=== PATIENT | male | born 1960 | race Caucasian/White ===

== ENCOUNTER 2016-08-03 12:17 | Inpatient (IN) | payer OTHER ==
[~2016-08-03] VITALS: Ht 177.8 cm; Wt 113.9 kg
[~2016-08-03 12:17] MED LIST: ASPI-664 PO; CLOP75TA27 PO; GLIM4TAB PO; LEVO500S PO; LISI10TA2 PO; METF1000 PO; SMV40T PO
[2016-08-03] MEDS ORDERED: SODIUM CHLORIDE 0.9% 1L BAG IV* STA (13:40)
[2016-08-03 14:19] LABS: ADD UMIC NO; URINE BILIRUBIN (Dip) NEGATIVE (NEGATIVE); URINE BLOOD (Dip) NEGATIVE (NEGATIVE); URINE COLOR LT. YELLOW (YELLOW); URINE GLUCOSE (Dip) >=1000 % (NEGATIVE); URINE KETONES (Dip) NEGATIVE (NEGATIVE); URINE LEUKOCYTE ESTERASE (Dip) NEGATIVE (NEGATIVE); URINE NITRITE (Dip) NEGATIVE (NEGATIVE); URINE TOTAL PROTEIN (Dip) NEGATIVE (NEGATIVE); URINE UROBILINOGEN (Dip) 0.2 E.U./dL (0.1-1.0)
--- NOTE | 2016-08-03 14:24 | RADRPT ---
PROCEDURE: Chest x-ray CLINICAL INDICATION: Sepsis TECHNIQUE: Chest single view COMPARISON: 07/27/2015 FINDINGS: The heart is normal in size. The pulmonary vessels are normal in caliber. The lungs are clear. Th e costophrenic angles are sharp. The visualized bony thorax is unremarkable. IMPRESSION: No acute cardiopulmonary disease. RPTAT: HH .Guy Cotto MD, Date Time Electronically viewed and signed by .Guy Cotto MD, on 08/03/2016 14:24 .W/
[2016-08-03 14:29] LABS: BASOPHILS % 0.2 % (0.0-2.0); EOSINOPHILS # 0.2 10^3/ul (0.0-0.5); EOSINOPHILS % 1.5 % (0.0-7.0); HEMATOCRIT 43.8 % (42.0-52.0); LYMPHOCYTES # 1.8 10^3/ul (0.8-2.9); LYMPHOCYTES % 15.3 % (15.0-51.0); MEAN CORPUSCULAR HGB CONC 34.2 g/dl (32.0-37.0); MEAN CORPUSCULAR VOLUME 90.6 fl (82.0-101.0); MEAN PLATELET VOLUME 9.4 fl (7.4-10.4); MONOCYTE # 0.8 10^3/ul (0.3-0.9); MONOCYTES % 6.7 % (0.0-11.0); NEUTROPHIL # 8.8 10^3/ul (1.6-7.5); NEUTROPHILS % 76.3 % (39.0-77.0); PLATELET COUNT 265 10^3/UL (140-440); RED BLOOD COUNT 4.84 10^6/ul (4.70-6.10); RED CELL DISTRIBUTION WIDTH 13.2 % (11.5-14.5); UNCORRECTED WBC 11.6 10^3/ul (4.8-10.8); WHITE BLOOD COUNT 11.6 10^3/ul (4.8-10.8)
[2016-08-03 14:38] LABS: INR 1.1; PROTIME 14.2 Sec (12.2-14.2); PT RATIO 1.1
[2016-08-03 14:39] LABS: PARTIAL THROMBOPLASTIN TIME 30.7 Sec (25.0-35.0)
[2016-08-03 14:43] LABS: ALBUMIN 4.6 g/dl (3.3-4.9); CHLORIDE 98 mmol/L (97-110); CONDITION 1
[2016-08-03 14:44] LABS: SODIUM 140 mmol/L (135-144)
[2016-08-03 14:46] LABS: ALBUMIN/GLOBULIN RATIO 1.24; ANION GAP 21 (8-16); ASPARTATE AMINO TRANSFERASE 27 IU/L (15-46); BILIRUBIN,INDIRECT 0.1 mg/dl (0-1.1); BILIRUBIN,TOTAL 0.1 mg/dl (0.2-1.3); BLOOD UREA NITROGEN 33 mg/dl (7-20); CARBON DIOXIDE 26 mmol/L (21-31); CREATININE 2.02 mg/dl (0.61-1.24); TOTAL PROTEIN 8.3 g/dl (6.1-8.1)
[2016-08-03 14:47] LABS: ALANINE AMINOTRANSFERASE 32 IU/L (13-69); ALKALINE PHOSPHATASE 88 IU/L (42-121); CALCIUM 10.1 mg/dl (8.4-10.2)
[2016-08-03] MEDS ORDERED: SOD CHLORIDE 0.9% 1,000 ML IV SCH (15:07)
--- NOTE | 2016-08-03 15:11 | ERA ---
ER Documentation Chief Complaint Date/Time DATE: 08/03/16 TIME: 15:08 Chief Complaint RIGHT WOUND INFECTION FOR A WEEK. SENT BY DR SANCHEZ FOR ADMISSION HPI This is a 55-year-old male who presents to the emergency room after being referred by Dr. Sanchez for admission for right foot cellulitis. This patient states that he has had an infection of his right foot for the past week which occurred after he cut himself on accident with scissors while trying to trim his toenails. The patient does state he is diabetic. The patient came to the ER for evaluation because his foot has started to become worse and has had peeling of the skin around the toes. He denies being on any antibiotics at this time. ROS All systems reviewed and are negative except as per history of present illness. Medications Home Meds Active Scripts Levofloxacin (Levofloxacin) 500 Mg/20 Ml Solution, 500 MG PO DAILY for celllulitis , #10 ML Prov:GRACE BELTRAN MD 07/28/15 Clopidogrel Bisulfate (Clopidogrel) 75 Mg Tablet, 75 MG PO DAILY, #30 TAB Prov:ROB TAYLOR NP 09/07/14 Aspirin* (Aspirin* EC) 81 Mg Tablet.dr 81 MG PO DAILY, #30 TAB Prov:ROB TAYLOR NP 09/07/14 Metformin Hcl* (Metformin Hcl*) 1,000 Mg Tablet, 1000 MG PO BID, #60 TAB RESUME THIS MEDICATION 48 HOURS FROM 09/06/14 AFTER LEFT HEART CATH RESTART THIS MEDICATION AFTER 09/08/14 Prov:ROB TAYLOR NP 09/07/14 Reported Medications Lisinopril* (Lisinopril*) 10 Mg Tablet, 10 MG PO DAILY, TAB 07/12/14 Glimepiride* (Glimepiride*) 4 Mg Tablet, 4 MG PO BID, TAB 07/12/14 Simvastatin (Simvastatin) 40 Mg Tablet, 40 MG PO HS, TAB 07/12/14 Allergies Allergies: Coded Allergies: No Known Allergy (Unverified , 09/06/14) PMhx/Soc History of Surgery: Yes (coronary artery stents x2) Anesthesia Reaction: No Hx Neurological Disorder: No Hx Respiratory Disorders: No Hx Cardiac Disorders: Yes (htn, chest pain) Hx Psychiatric Problems: No Hx Miscellaneous Medical Probl: No Hx Alcohol Use: No Hx Substance Use: No Hx Tobacco Use: No Smoking Status: Unknown if ever smoked Physical Exam Vitals Vital Signs Date Time Temp Pulse Resp B/P Pulse Ox O2 Delivery O2 Flow Rate FiO2 08/03/16 12:22 98.6 116 20 150/65 98 Physical Exam INITIAL VITAL SIGNS: Reviewed by me GENERAL: The patient is well developed and appropriate for usual state of health in no apparent distress HEENT: Pupils equal, round, and reactive to light. EOMI. There is no scleral icterus. NECK: C-spine is soft and supple, there is no meningismus. There is no cervical lymphadenopathy. LUNGS: Clear to auscultation bilaterally. There are no rales, wheezes or rhonchi. HEART: Regular rate and rhythm, no murmurs, clicks, rubs or gallops. ABDOMEN: Soft, non-tender, non-distended. There are bowel sounds in all four quadrants. No rebound or guarding. EXTREMITIES: Right foot with cellulitis over the toes worse over the first and second toe with sloughing of the skin, no necrotic tissue, there is no peripheral cyanosis or edema. No focal swelling or erythema. NEUROLOGICAL: The patient moves all four extremities with 5/5 strength. Cranial nerves II - XII are intact. Normal gait. Alert and oriented SKIN: There is no apparent rash or petechiae. HEME/LYMPHATIC: There is no evidence of excessive bruising or lymphedema. PSYCHIATRIC: The patient does not appear anxious or depressed. Result Diagram: 08/03/16 1400 Results 24 hrs Laboratory Tests Test 08/03/16 14:00 Activated Partial Thromboplast Time 30.7Sec Basophils # 0.010^3/ul Basophils % 0.2% Eosinophils # 0.210^3/ul Eosinophils % 1.5% Hematocrit 43.8% Hemoglobin 15.0g/dl INR International Normalized Ratio 1.10 Lactic Acid Level 1.8mmol/L Lymphocytes # 1.810^3/ul Lymphocytes % 15.3% Mean Corpuscular Hemoglobin 31.0pg Mean Corpuscular Hemoglobin Concent 34.2g/dl Mean Corpuscular Volume 90.6fl Mean Platelet Volume 9.4fl Monocytes # 0.810^3/ul Monocytes % 6.7% Neutrophils # 8.810^3/ul Neutrophils % 76.3% Nucleated Red Blood Cells # 0.010^3/ul Nucleated Red Blood Cells % 0.0/100WBC Platelet Count 39367^3/UL Prothrombin Time 14.2Sec Prothrombin Time Ratio 1.1 Red Blood Count 4.8410^6/ul Red Cell Distribution Width 13.2% Urine Bilirubin NEGATIVE Urine Clarity CLEAR Urine Color LT. YELLOW Urine Glucose >=1000% Urine Hemoglobin NEGATIVE Urine Ketones NEGATIVE Urine Leukocyte Esterase NEGATIVE Urine Nitrite NEGATIVE Urine Specific [place] 1.010 Urine Total Protein NEGATIVE Urine Urobilinogen 0.2 E.U./dL Urine pH 5.5 White Blood Count 11.610^3/ul Current Medications Medications (Trade) Dose Ordered Sig/Belén Route PRN Reason Start Time Stop Time Status Last Admin Dose Admin Sodium Chloride 2960 ml 2,960 ml BOLUS OVER 2 HOURS STAT IV* 08/03/16 13:40 08/03/16 13:50 DC 08/03/16 14:23 Vancomycin HCl 1.25 gm/Sodium Chloride 250 ml @ 83.333 mls/ hr ONCE ONCE IVPB 08/03/16 15:30 08/03/16 18:29 Ceftriaxone Sodium (Rocephin) 50 ml @ 100 mls/hr ONCE ONCE IVPB 08/03/16 15:30 08/03/16 15:59 Procedures/MDM EKG: Rate/Rhythm: [Normal Sinus Rhythm] QRS, ST, T-waves: [No changes consistent w/ acute ischemia] Impression: [No evidence of ischemia or arrhythmia] Chest X-ray 1V Interpreted by me: Soft Tissue: No acute abnormalities Bones: No acute abnormalities Mediastinum/Cardiac Silhouette/Lungs: [No acute abnormalities] X-ray Foot 3V Interpreted by me: Bones: [No fracture] Joints: [No dislocation] Foreign body: [None] This 55-year-old male presents to the emergency room for evaluation of right foot cellulitis. This patient did have sloughing of his skin on his right foot over the first and second toe. This patient had lab work drawn including blood cultures. Patient has a slight leukocytosis however given his severity of cellulitis over the foot this patient will be placed in for admission at this time. The patient was started on vancomycin and Rocephin. The patient was also given a tetanus shot here in the emergency room. I have talked to her admitting physician, Dr. le who is okay with that admission to [facility] at this time. Departure Diagnosis: Primary Impression: Cellulitis of right foot Additional Impression: Diabetes mellitus Condition: Stable SOL WADE DO Aug 03, 2016 15:10
[2016-08-03 15:14] LABS: TROPONIN-I < 0.012 ng/ml (0.00-0.12)
[2016-08-03 15:16] LABS: GLUCOSE 456 mg/dl (70-220); POTASSIUM 5.2 mmol/L (3.5-5.1)
[2016-08-03] MEDS ORDERED: DIPHTH/TET/ACEL PERTUSS (ADULT) 0.5 ML VIAL IM* ONE (15:30)
[2016-08-03] MEDS ORDERED: GLUCAGON 1 MG INJ IM PRN (15:30)
[2016-08-03] MEDS ORDERED: GLUCOSE GEL 15 GRAM TUBE PO PRN ×2 (15:30)
[2016-08-03] MEDS ORDERED: CEFTRIAXONE 1 GM/50 ML (PMX) 50 ML IVPB ONE (15:30)
[2016-08-03] MEDS ORDERED: VANCOMYCIN 1.25 GM in SOD CHLORIDE 0.9% 250 ML IVPB ONE (15:30)
[2016-08-03] MEDS ORDERED: MAGNESIUM HYDROXIDE 30ML CUP PO PRN (15:30)
[2016-08-03] MEDS ORDERED: INSULIN REGULAR, HUMAN 100 UNIT/1 ML 3ML VIAL SC ONE (15:30)
[2016-08-03] MEDS ORDERED: DEXTROSE 50% 50 ML SYRINGE IV PRN ×2 (15:30)
[2016-08-03] MEDS ORDERED: GLUCOSE GEL 15 GRAM TUBE BUCCAL PRN (15:30)
[2016-08-03] MEDS ORDERED: ONDANSETRON 4 MG INJ IV PRN (15:30)
[2016-08-03] MEDS ORDERED: ACETAMINOPHEN 325 MG TAB PO PRN ×2 (15:30)
[2016-08-03] MEDS ORDERED: NACL 0.9% 3 ML SYG IV SCH (15:30)
[2016-08-03] MEDS ORDERED: HYDROCODONE/APAP (5/325) TAB PO PRN (15:30)
[2016-08-03] MEDS ORDERED: INSU300I SQ (15:42)
--- NOTE | 2016-08-03 15:42 | RADRPT ---
PROCEDURE: Right XR Foot. CLINICAL INDICATION: Cellulitis. TECHNIQUE: AP lateral and oblique views of the right foot was obtained. The images were reviewed on a PACS workstation. COMPARISON: No.. FINDINGS: There is a plantar spur off of the os calcaneus. There is an arthrosis with joint space narrowing a nd popping the right first metatarsophalangeal and right first DIP joints. There is a hallux valgus deformity of the right great toe. There is no radiographic evidence of an acute fracture or osteom yelitis. There is no evidence of gas gangrene. IMPRESSION: 1. There is no radiographic evidence of osteomyelitis or gas gangrene. 2. Plantar spur of the os calcaneus. 3. Hallux valgus deformity of the right great toe. Para for arthrosis of the right first metatarsal phalangeal and right first DIP joint spaces. RPTAT:AAJJ Physician Lore Date Time Electronically viewed and signed by Physician Lore on 08/03/2016 15:42 DUNIA/
[2016-08-03] MEDS ORDERED: HYD25 PO (15:43)
[2016-08-03] MEDS ORDERED: SITA1TAB5 PO (15:43)
[2016-08-03] MEDS ORDERED: FENO145T19 PO (15:43)
[2016-08-03] MEDS ORDERED: DAPA5TAB PO (15:44)
[2016-08-03] MEDS ORDERED: DAPA10TA PO (15:45)
--- NOTE | 2016-08-03 19:31 | QN ---
Documentation Comment [id number] MARIO MONTES MD Aug 03, 2016 19:31
[2016-08-03] MEDS ORDERED: GLIMEPIRIDE 4 MG TAB PO SCH (21:00)
[2016-08-03] MEDS ORDERED: metFORMIN 500 MG TAB PO SCH (21:00)
[2016-08-03] MEDS: INSULIN ASPART [NOVOLOG] 3 ML PEN SC SCH (21:00)
--- NOTE | 2016-08-03 21:40 | HP ---
DATE OF ADMISSION: 08/03/2016 HISTORY OF PRESENT ILLNESS: Mr. Duron is a middle-aged man who has a history of right lower extremity cellulitis, history of diabetes mellitus, hypertension, dyslipidemia, history of CAD, angiogram and stent placement in the past, presented to this hospital with complaints of right lower extremity foot wound. The patient had been cleaning his toenails and developed that, was seen by Dr. Schwarz, and is admitted for further management. PAST MEDICAL HISTORY: Positive for diabetes, hypertension, dyslipidemia, CAD, CKD, history of stent placement, per patient. ALLERGY HISTORY: NEGATIVE. FAMILY HISTORY: He denies. SOCIAL HISTORY: He denies. MEDICATION HISTORY: Patient was on: 1. Aspirin. 2. Plavix. 3. toujeo 4. Fenofibrate. 5. Amaryl. 6. Hydrochlorothiazide. 7. Insulin. 8. Lisinopril. 9. Simvastatin. 10. Sitagliptin. 11. Metformin. REVIEW OF SYSTEMS HEENT: Unremarkable. RESPIRATORY: Unremarkable. CARDIOVASCULAR: Unremarkable. ABDOMEN: Unremarkable. EXTREMITIES: As mentioned above, right lower extremity pain. CENTRAL NERVOUS SYSTEM: Unremarkable. PHYSICAL EXAMINATION: GENERAL: The patient is awake, alert, not in any acute respiratory distress, well built. VITAL SIGNS: Pulse 75 blood pressure 150/65. HEAD: Atraumatic, normocephalic. Pupils equal, reactive to light. NECK: Supple. No JVD. LUNGS: Clear. CARDIOVASCULAR: S1, S2 normal. ABDOMEN: Soft, nontender. Bowel sounds present. No palpable mass. EXTREMITIES: No cyanosis, clubbing. Edema trace. The patient has right lower extremity foot wound noted, and also peeling of the skin noted in the right lower extremity toe area. LABORATORY DATA: WBC 9.6, hematocrit 43.8, potassium 5.2, BUN 33, creatinine 2.02, glucose 456, and patient is going to be monitored for further management. Chest x-ray: No acute cardiopulmonary disease. IMPRESSION: 1. Right foot ulcer and wound. 2. Leukocytosis. 3. Hyperkalemia. 4. Patient has metabolic acidosis. 5. Diabetes mellitus. 6. Coronary artery disease. 7. History of coronary angiogram with stent placement. 8. Leukocytosis. 9. History of dyslipidemia. PLAN: To continue home medication, wound care, antibiotics, sliding scale. Orders were done. Dictated By: MARIO ANDERS/KONRAD Conf#: [id number] DID#: [id number]
[2016-08-03] MEDS: SOD CHLORIDE 0.9% 1,000 ML IV SCH (23:11)
[2016-08-04] MEDS: ATORVASTATIN 20 MG TAB PO SCH ×2 (01:12→21:54)
[2016-08-04 06:56] VITALS: TEMP 98.5
[2016-08-04 08:00] VITALS: BP 132/64; RESP 20
[2016-08-04 08:15] VITALS: Ht 177.8 cm; Wt 113.9 kg
[2016-08-04 08:22] VITALS: BP 132/64; PULSE 70; RESP 20
[2016-08-04] MEDS: CLOPIDOGREL 75 MG TAB PO SCH (10:47)
[2016-08-04] MEDS: LISINOPRIL 10 MG TAB PO SCH (10:47)
[2016-08-04] MEDS: FENOFIBRATE 145 MG TAB PO SCH (10:47)
[2016-08-04] MEDS: CEFTRIAXONE 1 GM/50 ML (PMX) 50 ML IVPB SCH (10:47)
[2016-08-04] MEDS: ASPIRIN (EC) 81 MG TAB PO SCH (10:48)
[2016-08-04] MEDS: HYDROCHLOROTHIAZIDE 25 MG TAB PO SCH (10:48)
[2016-08-04] MEDS: ENOXAPARIN 40 MG/0.4 ML SYG SC SCH (10:49)
[2016-08-04] MEDS: INSULIN ASPART [NOVOLOG] 3 ML PEN SC SCH ×4 (10:51→21:51)
[2016-08-04] MEDS: INSULIN GLARGINE [LANtus] 3 ML PEN SC SCH (10:52)
[2016-08-04] MEDS: SOD CHLORIDE 0.9% 1,000 ML IV SCH (11:01)
--- NOTE | 2016-08-04 12:09 | PN ---
Date/Time of Note Date/Time of Note DATE: 08/04/16 TIME: 12:09 Assessment/Plan VTE Prophylaxis VTE Prophylaxis Intervention: other Lines/Catheters IV Catheter Type (from Nrs): Peripheral IV Assessment/Plan Chief Complaint/Hosp Course IMPRESSION: 1. Right foot ulcer and wound. 2. Leukocytosis. 3. Hyperkalemia. 4. Patient has metabolic acidosis. 5. Diabetes mellitus. 6. Coronary artery disease. 7. History of coronary angiogram with stent placement. 8. Leukocytosis. 9. History of dyslipidemia. plan wound care per dr hernandez Problems: Subjective 24 Hr Interval Summary Gastrointestinal: no complaints Genitourinary: no complaints Exam/Review of Systems Vital Signs Vitals Vital Signs Date Time Temp Pulse Resp B/P Pulse Ox O2 Delivery O2 Flow Rate FiO2 08/04/16 08:22 98.6 70 20 132/64 98 Room Air Intake and Output 08/03/16 08/03/16 08/04/16 15:00 23:00 07:00 Output Total 150 ml 450 ml Balance -150 ml -450 ml Exam Neck: supple Respiratory: clear to auscultation Cardiovascular: regular rate and rhythm Gastrointestinal: soft Musculoskeletal: nl extremities to inspection Extremities: normal pulses Results Result Diagram: 08/03/16 1400 08/03/16 1400 Results 24 hrs Laboratory Tests Test 08/03/16 14:00 08/03/16 19:05 08/03/16 19:45 08/03/16 21:30 Activated Partial Thromboplast Time 30.7 Alanine Aminotransferase (ALT/SGPT) 32 Albumin 4.6 Albumin/Globulin Ratio 1.24 Alkaline Phosphatase 88 Anion Gap 21 H Aspartate Amino Transf (AST/SGOT) 27 Basophils # 0.0 Basophils % 0.2 Blood Urea Nitrogen 33 H Calcium Level 10.1 Carbon Dioxide Level 26 Chloride Level 98 Creatinine 2.02 H Direct Bilirubin 0.00 Eosinophils # 0.2 Eosinophils % 1.5 Globulin 3.70 H Glucose Level 456 *H Hematocrit 43.8 Hemoglobin 15.0 INR International Normalized Ratio 1.10 Indirect Bilirubin 0.1 Lactic Acid Level 1.8 2.9 H 1.0 Lymphocytes # 1.8 Lymphocytes % 15.3 Mean Corpuscular Hemoglobin 31.0 Mean Corpuscular Hemoglobin Concent 34.2 Mean Corpuscular Volume 90.6 Mean Platelet Volume 9.4 Monocytes # 0.8 Monocytes % 6.7 Neutrophils # 8.8 H Neutrophils % 76.3 Nucleated Red Blood Cells # 0.0 Nucleated Red Blood Cells % 0.0 Platelet Count 265 # Potassium Level 5.2 H Prothrombin Time 14.2 Prothrombin Time Ratio 1.1 Red Blood Count 4.84 Red Cell Distribution Width 13.2 Sodium Level 140 Total Bilirubin 0.1 L Total Protein 8.3 H Troponin I < 0.012 Urine Bilirubin NEGATIVE Urine Clarity CLEAR Urine Color LT. YELLOW Urine Glucose >=1000 Urine Hemoglobin NEGATIVE Urine Ketones NEGATIVE Urine Leukocyte Esterase NEGATIVE Urine Nitrite NEGATIVE Urine Specific [place] 1.010 Urine Total Protein NEGATIVE Urine Urobilinogen 0.2 E.U./dL Urine pH 5.5 White Blood Count 11.6 #H Bedside Glucose 267 H Test 08/03/16 23:10 08/04/16 08:04 Bedside Glucose 176 151 Medications Medications Current Medications Aspirin (Halfprin) 81 mg DAILY PO Last administered on 08/04/16 10:48; Admin Dose 81 MG; Start 08/04/16 at 09:00 Lisinopril 10 mg 10 mg DAILY PO Last administered on 08/04/16 10:47; Admin Dose 10 MG; Start 08/04/16 at 09:00 Sodium Chloride (NS) 1,000 ml @ 50 mls/hr Q20H IV Last administered on 11:01; Admin Dose 50 MLS/HR; Start 08/03/16 at 15:09 Acetaminophen (Tylenol Tab) 650 mg Q6H PRN PO PAIN LEVEL 1-3 OR FEVER; Start at 15:30 Acetaminophen/ Hydrocodone Bitart ([place] (5/325)) 1 tab Q6H PRN PO MODERATE PAIN LEVEL 4-6; Start 08/03/16 at 15:30 Magnesium Hydroxide (Milk Of Mag) 30 ml Q24H PRN PO CONSTIPATION; Start at 15:30 Zolpidem Tartrate (Ambien) 5 mg QHS PRN PO SLEEP; Start 08/03/16 at 15:30 Enoxaparin Sodium 40 mg 40 mg DAILY SC Last administered on 08/04/16 10:49; Admin Dose 40 MG; Start 08/04/16 at 09:00 Ceftriaxone Sodium (Rocephin) 50 ml @ 100 mls/hr DAILY IVPB Last administered on 08/04/16 10:47; Admin Dose 100 MLS/HR; Start 08/04/16 at 09:00 Miscellaneous Information 1 ea NOTE XX ; Start 08/03/16 at 15:30 Glucose (Glutose) 15 gm Q15M PRN PO DECREASED GLUCOSE; Start 08/03/16 at 15:30 Glucose (Glutose) 22.5 gm Q15M PRN PO DECREASED GLUCOSE; Start 08/03/16 at 15: 30 Dextrose (D50w Syringe) 25 ml Q15M PRN IV DECREASED GLUCOSE; Start 08/03/16 at 15:30 Dextrose (D50w Syringe) 50 ml Q15M PRN IV DECREASED GLUCOSE; Start 08/03/16 at 15:30 Glucagon (Glucagen) 1 mg Q15M PRN IM DECREASED GLUCOSE; Start 08/03/16 at 15:30 Glucose (Glutose) 15 gm Q15M PRN BUCCAL DECREASED GLUCOSE; Start 08/03/16 at 15 :30 Clopidogrel Bisulfate (plaVIX) 75 mg DAILY PO Last administered on 08/04/16 10 :47; Admin Dose 75 MG; Start 08/04/16 at 09:00 Fenofibrate (Tricor) 145 mg DAILY PO Last administered on 08/04/16 10:47; Admin Dose 145 MG; Start 08/04/16 at 09:00 Hydrochlorothiazide (Hydrochlorothiazide) 25 mg DAILY PO Last administered on 10:48; Admin Dose 25 MG; Start 08/04/16 at 09:00 Insulin Glargine (Lantus) 55 unit DAILY SC Last administered on 08/04/16 10:52 ; Admin Dose 55 UNIT; Start 08/04/16 at 09:00 Atorvastatin Calcium (Lipitor) 20 mg DAILY@21 PO Last administered on 01:12; Admin Dose 20 MG; Start 08/04/16 at 00:30 Influenza Virus Vaccine (Fluzone) 0.5 ml ONCE ONCE IM* ; Start 08/06/16 at 09:00 ; Stop 08/06/16 at 09:01 MARIO MONTES MD Aug 04, 2016 12:09
[2016-08-04 21:18] VITALS: BP 106/62; RESP 18
[2016-08-04] MEDS: ZOLPIDEM 5 MG TAB PO PRN (21:47)
[2016-08-05 07:29] VITALS: BP 120/73; RESP 20
[2016-08-05 07:42] LABS: BASOPHILS % 0.4 % (0.0-2.0); EOSINOPHILS # 0.3 10^3/ul (0.0-0.5); EOSINOPHILS % 3.1 % (0.0-7.0); HEMATOCRIT 37.7 % (42.0-52.0); HEMOGLOBIN 13.1 g/dl (14.0-18.0); LYMPHOCYTES # 3.1 10^3/ul (0.8-2.9); LYMPHOCYTES % 37.1 % (15.0-51.0); MEAN CORPUSCULAR HEMOGLOBIN 31.4 pg (29.0-33.0); MEAN CORPUSCULAR HGB CONC 34.8 g/dl (32.0-37.0); MEAN CORPUSCULAR VOLUME 90.3 fl (82.0-101.0); MEAN PLATELET VOLUME 8.2 fl (7.4-10.4); MONOCYTE # 0.8 10^3/ul (0.3-0.9); MONOCYTES % 10.1 % (0.0-11.0); NEUTROPHIL # 4.1 10^3/ul (1.6-7.5); NEUTROPHILS % 49.3 % (39.0-77.0); PLATELET COUNT 256 10^3/UL (140-440); RED BLOOD COUNT 4.18 10^6/ul (4.70-6.10); RED CELL DISTRIBUTION WIDTH 12.8 % (11.5-14.5); UNCORRECTED WBC 8.4 10^3/ul (4.8-10.8); WHITE BLOOD COUNT 8.4 10^3/ul (4.8-10.8)
[2016-08-05 07:46] LABS: POTASSIUM 3.8 mmol/L (3.5-5.1)
[2016-08-05 07:49] LABS: CONDITION 1; CREATININE 1.35 mg/dl (0.61-1.24)
[2016-08-05] MEDS: INSULIN ASPART [NOVOLOG] 3 ML PEN SC SCH ×4 (08:00→21:37)
[2016-08-05] MEDS: CLOPIDOGREL 75 MG TAB PO SCH (08:35)
[2016-08-05] MEDS: ASPIRIN (EC) 81 MG TAB PO SCH (08:35)
[2016-08-05] MEDS: SOD CHLORIDE 0.9% 1,000 ML IV SCH (08:35)
[2016-08-05] MEDS: LISINOPRIL 10 MG TAB PO SCH (08:36)
[2016-08-05] MEDS: FENOFIBRATE 145 MG TAB PO SCH (08:36)
[2016-08-05] MEDS: HYDROCHLOROTHIAZIDE 25 MG TAB PO SCH (08:36)
[2016-08-05] MEDS: ENOXAPARIN 40 MG/0.4 ML SYG SC SCH (08:39)
[2016-08-05] MEDS: INSULIN GLARGINE [LANtus] 3 ML PEN SC SCH (08:39)
[2016-08-05] MEDS: CEFTRIAXONE 1 GM/50 ML (PMX) 50 ML IVPB SCH (09:46)
[2016-08-05] MEDS: SILVER SULFADIAZINE 1% 25 GM CR TOP SCH (13:00)
--- NOTE | 2016-08-05 16:53 | PN ---
Date/Time of Note Date/Time of Note DATE: 08/05/16 TIME: 16:52 Assessment/Plan VTE Prophylaxis VTE Prophylaxis Intervention: other Lines/Catheters IV Catheter Type (from Nrs): Peripheral IV Assessment/Plan Chief Complaint/Hosp Course IMPRESSION: 1. Right foot ulcer and wound. 2. Leukocytosis. 3. Hyperkalemia. 4. Patient has metabolic acidosis. 5. Diabetes mellitus. 6. Coronary artery disease. 7. History of coronary angiogram with stent placement. 8. Leukocytosis. 9. History of dyslipidemia. plan wound care per dr hernandez Problems: Subjective 24 Hr Interval Summary Cardiovascular: no complaints Gastrointestinal: no complaints Musculoskeletal: bone/joint pain (+) Exam/Review of Systems Vital Signs Vitals Vital Signs Date Time Temp Pulse Resp B/P Pulse Ox O2 Delivery O2 Flow Rate FiO2 08/05/16 07:29 98.6 73 20 120/73 95 08/04/16 08:22 Room Air Intake and Output 08/04/16 08/04/16 08/05/16 15:00 23:00 07:00 Intake Total 50 ml 1400 ml 1100 ml Balance 50 ml 1400 ml 1100 ml Exam Respiratory: clear to auscultation Cardiovascular: regular rate and rhythm Gastrointestinal: soft Musculoskeletal: nl extremities to inspection Results Result Diagram: 08/05/16 0710 08/05/16 0710 Results 24 hrs Laboratory Tests Test 08/04/16 17:54 08/04/16 20:34 08/05/16 07:10 08/05/16 08:16 Bedside Glucose 263 H 310 H 140 Anion Gap 18 H Basophils # 0.0 Basophils % 0.4 Blood Urea Nitrogen 19 # Calcium Level 9.0 Carbon Dioxide Level 21 Chloride Level 106 Creatinine 1.35 H Eosinophils # 0.3 Eosinophils % 3.1 Glucose Level 158 # Hematocrit 37.7 L Hemoglobin 13.1 L Lymphocytes # 3.1 H Lymphocytes % 37.1 Mean Corpuscular Hemoglobin 31.4 Mean Corpuscular Hemoglobin Concent 34.8 Mean Corpuscular Volume 90.3 Mean Platelet Volume 8.2 Monocytes # 0.8 Monocytes % 10.1 Neutrophils # 4.1 Neutrophils % 49.3 Nucleated Red Blood Cells # 0.0 Nucleated Red Blood Cells % 0.0 Platelet Count 256 Potassium Level 3.8 Red Blood Count 4.18 L Red Cell Distribution Width 12.8 Sodium Level 141 White Blood Count 8.4 # Test 08/05/16 12:07 Bedside Glucose 219 Medications Medications Current Medications Aspirin (Halfprin) 81 mg DAILY PO Last administered on 08/05/16 08:35; Admin Dose 81 MG; Start 08/04/16 at 09:00 Lisinopril 10 mg 10 mg DAILY PO Last administered on 08/05/16 08:36; Admin Dose 10 MG; Start 08/04/16 at 09:00 Sodium Chloride (NS) 1,000 ml @ 50 mls/hr Q20H IV Last administered on 08:35; Admin Dose 50 MLS/HR; Start 08/03/16 at 15:09 Acetaminophen (Tylenol Tab) 650 mg Q6H PRN PO PAIN LEVEL 1-3 OR FEVER; Start at 15:30 Acetaminophen/ Hydrocodone Bitart ([place] (5/325)) 1 tab Q6H PRN PO MODERATE PAIN LEVEL 4-6; Start 08/03/16 at 15:30 Magnesium Hydroxide (Milk Of Mag) 30 ml Q24H PRN PO CONSTIPATION; Start at 15:30 Zolpidem Tartrate (Ambien) 5 mg QHS PRN PO SLEEP Last administered on 21:47; Admin Dose 5 MG; Start 08/03/16 at 15:30 Enoxaparin Sodium 40 mg 40 mg DAILY SC Last administered on 08/05/16 08:39; Admin Dose 40 MG; Start 08/04/16 at 09:00 Ceftriaxone Sodium (Rocephin) 50 ml @ 100 mls/hr DAILY IVPB Last administered on 08/05/16 09:46; Admin Dose 100 MLS/HR; Start 08/04/16 at 09:00 Miscellaneous Information 1 ea NOTE XX ; Start 08/03/16 at 15:30 Glucose (Glutose) 15 gm Q15M PRN PO DECREASED GLUCOSE; Start 08/03/16 at 15:30 Glucose (Glutose) 22.5 gm Q15M PRN PO DECREASED GLUCOSE; Start 08/03/16 at 15: 30 Dextrose (D50w Syringe) 25 ml Q15M PRN IV DECREASED GLUCOSE; Start 08/03/16 at 15:30 Dextrose (D50w Syringe) 50 ml Q15M PRN IV DECREASED GLUCOSE; Start 08/03/16 at 15:30 Glucagon (Glucagen) 1 mg Q15M PRN IM DECREASED GLUCOSE; Start 08/03/16 at 15:30 Glucose (Glutose) 15 gm Q15M PRN BUCCAL DECREASED GLUCOSE; Start 08/03/16 at 15 :30 Clopidogrel Bisulfate (plaVIX) 75 mg DAILY PO Last administered on 08/05/16 08 :35; Admin Dose 75 MG; Start 08/04/16 at 09:00 Fenofibrate (Tricor) 145 mg DAILY PO Last administered on 08/05/16 08:36; Admin Dose 145 MG; Start 08/04/16 at 09:00 Hydrochlorothiazide (Hydrochlorothiazide) 25 mg DAILY PO Last administered on 08:36; Admin Dose 25 MG; Start 08/04/16 at 09:00 Insulin Glargine (Lantus) 55 unit DAILY SC Last administered on 08/05/16 08:39 ; Admin Dose 55 UNIT; Start 08/04/16 at 09:00 Atorvastatin Calcium (Lipitor) 20 mg DAILY@21 PO Last administered on 21:54; Admin Dose 20 MG; Start 08/04/16 at 00:30 Influenza Virus Vaccine (Fluzone) 0.5 ml ONCE ONCE IM* ; Start 08/06/16 at 09:00 ; Stop 08/06/16 at 09:01 Silver Sulfadiazine (Thermazene 1% 25 Gm) 1 applic DAILY TOP Last administered on 08/05/16 13:00; Admin Dose 1 APPLIC; Start 08/05/16 at 11:30 MARIO MONTES MD Aug 05, 2016 16:53
[2016-08-05 20:16] VITALS: BP 101/62; RESP 18
[2016-08-05] MEDS: ATORVASTATIN 20 MG TAB PO SCH (21:30)
[2016-08-06] MEDS: ZOLPIDEM 5 MG TAB PO PRN (00:29)
[2016-08-06] MEDS: SILVER SULFADIAZINE 1% 25 GM CR TOP SCH (08:08)
[2016-08-06] MEDS: CEFTRIAXONE 1 GM/50 ML (PMX) 50 ML IVPB SCH (08:08)
[2016-08-06] MEDS: CLOPIDOGREL 75 MG TAB PO SCH (08:09)
[2016-08-06] MEDS: ASPIRIN (EC) 81 MG TAB PO SCH (08:09)
[2016-08-06] MEDS: LISINOPRIL 10 MG TAB PO SCH (08:09)
[2016-08-06] MEDS: HYDROCHLOROTHIAZIDE 25 MG TAB PO SCH (08:09)
[2016-08-06] MEDS: FENOFIBRATE 145 MG TAB PO SCH (08:09)
[2016-08-06] MEDS: INSULIN GLARGINE [LANtus] 3 ML PEN SC SCH (08:10)
[2016-08-06] MEDS: INSULIN ASPART [NOVOLOG] 3 ML PEN SC SCH ×4 (08:11→20:43)
[2016-08-06] MEDS: ENOXAPARIN 40 MG/0.4 ML SYG SC SCH (08:12)
[2016-08-06 08:13] VITALS: BP 113/57; RESP 20
[2016-08-06] MEDS ORDERED: INFLUENZA VIRUS VACCINE 0.5 ML (DISPENSING) IM* ONE (09:00)
[2016-08-06] MEDS: SOD CHLORIDE 0.9% 1,000 ML IV SCH ×2 (15:25→23:09)
[2016-08-06 19:35] VITALS: BP 106/63; PULSE 71; RESP 71
--- NOTE | 2016-08-06 19:49 | PN ---
Date/Time of Note Date/Time of Note DATE: 08/06/16 TIME: 19:48 Assessment/Plan VTE Prophylaxis VTE Prophylaxis Intervention: other Lines/Catheters IV Catheter Type (from Nrs): Peripheral IV Assessment/Plan Chief Complaint/Hosp Course IMPRESSION: 1. Right foot ulcer and wound. 2. Leukocytosis. 3. Hyperkalemia.HX 4. Patient has metabolic acidosis. 5. Diabetes mellitus. 6. Coronary artery disease. 7. History of coronary angiogram with stent placement. 8. Leukocytosis. 9. History of dyslipidemia. plan wound care per dr hernandez ANTIBIOTIC Problems: Subjective 24 Hr Interval Summary ENT: no complaints Respiratory: No shortness of breath Cardiovascular: no complaints Gastrointestinal: no complaints Genitourinary: no complaints Exam/Review of Systems Vital Signs Vitals Vital Signs Date Time Temp Pulse Resp B/P Pulse Ox O2 Delivery O2 Flow Rate FiO2 08/06/16 19:35 98.9 71 71 106/63 93 Room Air Intake and Output 08/05/16 08/05/16 08/06/16 15:00 23:00 07:00 Intake Total 225 ml 1630 ml 690 ml Balance 225 ml 1630 ml 690 ml Exam Neck: supple Respiratory: clear to auscultation Cardiovascular: regular rate and rhythm Gastrointestinal: soft Musculoskeletal: nl extremities to inspection Extremities: normal pulses Results Result Diagram: 08/05/16 0710 08/05/16 0710 Results 24 hrs Laboratory Tests Test 08/05/16 21:28 08/06/16 01:39 08/06/16 07:16 08/06/16 11:44 Bedside Glucose 239 H 184 148 293 H Test 08/06/16 17:28 Bedside Glucose 330 H Medications Medications Current Medications Aspirin (Halfprin) 81 mg DAILY PO Last administered on 08/06/16 08:09; Admin Dose 81 MG; Start 08/04/16 at 09:00 Lisinopril 10 mg 10 mg DAILY PO Last administered on 08/06/16 08:09; Admin Dose 10 MG; Start 08/04/16 at 09:00 Sodium Chloride (NS) 1,000 ml @ 50 mls/hr Q20H IV Last administered on 15:25; Admin Dose 50 MLS/HR; Start 08/03/16 at 15:09 Acetaminophen (Tylenol Tab) 650 mg Q6H PRN PO PAIN LEVEL 1-3 OR FEVER; Start at 15:30 Acetaminophen/ Hydrocodone Bitart ([place] (5/325)) 1 tab Q6H PRN PO MODERATE PAIN LEVEL 4-6; Start 08/03/16 at 15:30 Magnesium Hydroxide (Milk Of Mag) 30 ml Q24H PRN PO CONSTIPATION; Start at 15:30 Zolpidem Tartrate (Ambien) 5 mg QHS PRN PO SLEEP Last administered on 00:29; Admin Dose 5 MG; Start 08/03/16 at 15:30 Enoxaparin Sodium 40 mg 40 mg DAILY SC Last administered on 08/06/16 08:12; Admin Dose 40 MG; Start 08/04/16 at 09:00 Ceftriaxone Sodium (Rocephin) 50 ml @ 100 mls/hr DAILY IVPB Last administered on 08/06/16 08:08; Admin Dose 100 MLS/HR; Start 08/04/16 at 09:00 Miscellaneous Information 1 ea NOTE XX ; Start 08/03/16 at 15:30 Glucose (Glutose) 15 gm Q15M PRN PO DECREASED GLUCOSE; Start 08/03/16 at 15:30 Glucose (Glutose) 22.5 gm Q15M PRN PO DECREASED GLUCOSE; Start 08/03/16 at 15: 30 Dextrose (D50w Syringe) 25 ml Q15M PRN IV DECREASED GLUCOSE; Start 08/03/16 at 15:30 Dextrose (D50w Syringe) 50 ml Q15M PRN IV DECREASED GLUCOSE; Start 08/03/16 at 15:30 Glucagon (Glucagen) 1 mg Q15M PRN IM DECREASED GLUCOSE; Start 08/03/16 at 15:30 Glucose (Glutose) 15 gm Q15M PRN BUCCAL DECREASED GLUCOSE; Start 08/03/16 at 15 :30 Clopidogrel Bisulfate (plaVIX) 75 mg DAILY PO Last administered on 08/06/16 08 :09; Admin Dose 75 MG; Start 08/04/16 at 09:00 Fenofibrate (Tricor) 145 mg DAILY PO Last administered on 08/06/16 08:09; Admin Dose 145 MG; Start 08/04/16 at 09:00 Hydrochlorothiazide (Hydrochlorothiazide) 25 mg DAILY PO Last administered on 2 /20/17at 08:09; Admin Dose 25 MG; Start 08/04/16 at 09:00 Insulin Glargine (Lantus) 55 unit DAILY SC Last administered on 08/06/16 08:10 ; Admin Dose 55 UNIT; Start 08/04/16 at 09:00 Atorvastatin Calcium (Lipitor) 20 mg DAILY@21 PO Last administered on 21:30; Admin Dose 20 MG; Start 08/04/16 at 00:30 Silver Sulfadiazine (Thermazene 1% 25 Gm) 1 applic DAILY TOP Last administered on 08/06/16 08:08; Admin Dose 1 APPLIC; Start 08/05/16 at 11:30 MARIO MONTES MD Aug 06, 2016 19:49
[2016-08-06] MEDS: ATORVASTATIN 20 MG TAB PO SCH (20:40)
[2016-08-07] MEDS: ZOLPIDEM 5 MG TAB PO PRN (01:08)
[2016-08-07] MEDS: CEFTRIAXONE 1 GM/50 ML (PMX) 50 ML IVPB SCH (08:22)
[2016-08-07] MEDS: FENOFIBRATE 145 MG TAB PO SCH (08:23)
[2016-08-07] MEDS: CLOPIDOGREL 75 MG TAB PO SCH (08:23)
[2016-08-07] MEDS: ASPIRIN (EC) 81 MG TAB PO SCH (08:23)
[2016-08-07] MEDS: HYDROCHLOROTHIAZIDE 25 MG TAB PO SCH (08:23)
[2016-08-07] MEDS: SILVER SULFADIAZINE 1% 25 GM CR TOP SCH (08:23)
[2016-08-07] MEDS: ENOXAPARIN 40 MG/0.4 ML SYG SC SCH (08:24)
[2016-08-07] MEDS: INSULIN ASPART [NOVOLOG] 3 ML PEN SC SCH ×5 (08:29→20:56)
[2016-08-07] MEDS: INSULIN GLARGINE [LANtus] 3 ML PEN SC SCH (08:30)
[2016-08-07] MEDS: LISINOPRIL 10 MG TAB PO SCH (08:30)
[2016-08-07 08:44] VITALS: BP 104/65; RESP 20
[2016-08-07] MEDS: SOD CHLORIDE 0.9% 1,000 ML IV SCH (11:36)
--- NOTE | 2016-08-07 17:03 | RADRPT ---
PROCEDURE: US bilateral lower extremity arteries. CLINICAL INDICATION: Bilateral leg pain. Claudication that interferes significantly with the amador ent's lifestyle. Right toe ulcer. TECHNIQUE: Multiple longitudinal and transverse images of the bilateral lower extremity arteries w ere obtained with gomez scale, pulsed Doppler, and color Doppler imaging. COMPARISON: No prior studies are available for comparison. FINDINGS: Right GHG402 cm/sec PSFA84 cm/sec MSFA87 cm/sec DSFA86 cm/sec POP91 cm/sec SURGICAL FORCEPS FABRICATOR:113 cm/sec DPA:41 cm/sec Left COVERING MACHINE OPERATOR:101 cm/sec PSFA:82 cm/sec MSFA:102 cm/sec DSFA:64 cm/sec POP:84 cm/sec SURGICAL FORCEPS FABRICATOR:132 cm/sec DPA:32 cm/sec The right ankle-brachial index is 1.1 and the left ankle-brachial index is 1.1. There is normal triphasic flow bilaterally in the femoral and popliteal systems. Biphasic flow is p resent bilaterally in the calf arteries. IMPRESSION: 1. Abnormal biphasic flow bilaterally in the calf arteries which may indicate significant stenosis or occlusion in the distal popliteal or proximal calf arteries. 2. Normal bilateral femoral and popliteal systems. RPTAT: QQ .Michael Man MD, MD Date Time Electronically viewed and signed by .Michael Man MD, MD on 08/07/2016 17:02 .R/
[2016-08-07 20:00] VITALS: BP 116/76; PULSE 82; RESP 18
[2016-08-07] MEDS: ATORVASTATIN 20 MG TAB PO SCH (20:56)
--- NOTE | 2016-08-07 20:57 | PN ---
Date/Time of Note Date/Time of Note DATE: 08/07/16 TIME: 20:56 Assessment/Plan VTE Prophylaxis VTE Prophylaxis Intervention: other Lines/Catheters [facility] Peripheral IV Assessment/Plan Chief Complaint/Hosp Course IMPRESSION: 1. Right foot ulcer and wound. 2. Leukocytosis. 3. Hyperkalemia.HX 4. Patient has metabolic acidosis. 5. Diabetes mellitus. 6. Coronary artery disease. 7. History of coronary angiogram with stent placement. 8. Leukocytosis. 9. History of dyslipidemia. plan wound care per dr hernandez ANTIBIOTIC DR LANG TO SEE Problems: Subjective 24 Hr Interval Summary Respiratory: no complaints Cardiovascular: no complaints Gastrointestinal: no complaints Musculoskeletal: no complaints Exam/Review of Systems Vital Signs Vitals Vital Signs Date Time Temp Pulse Resp B/P Pulse Ox O2 Delivery O2 Flow Rate FiO2 08/07/16 08:44 98.3 58 20 104/65 96 08/06/16 19:35 Room Air Intake and Output 08/06/16 08/06/16 08/07/16 15:00 23:00 07:00 Intake Total 50 ml 1260 ml 1100 ml Balance 50 ml 1260 ml 1100 ml Exam Neck: supple Respiratory: clear to auscultation Cardiovascular: regular rate and rhythm Gastrointestinal: soft Extremities: edema (+) Results Result Diagram: 08/05/16 0710 08/05/16 0710 Results 24 hrs Laboratory Tests Test 08/07/16 01:54 08/07/16 07:06 08/07/16 12:28 08/07/16 12:50 Bedside Glucose 220 166 271 H Hemoglobin A1c 12.5 H Test 08/07/16 17:28 08/07/16 20:07 Bedside Glucose 316 H 297 H Medications Medications Current Medications Aspirin (Halfprin) 81 mg DAILY PO Last administered on 08/07/16 08:23; Admin Dose 81 MG; Start 08/04/16 at 09:00 Lisinopril 10 mg 10 mg DAILY PO Last administered on 08/06/16 08:09; Admin Dose 10 MG; Start 08/04/16 at 09:00 Sodium Chloride (NS) 1,000 ml @ 50 mls/hr Q20H IV Last administered on 11:36; Admin Dose 50 MLS/HR; Start 08/03/16 at 15:09 Acetaminophen (Tylenol Tab) 650 mg Q6H PRN PO PAIN LEVEL 1-3 OR FEVER; Start at 15:30 Acetaminophen/ Hydrocodone Bitart ([place] (5/325)) 1 tab Q6H PRN PO MODERATE PAIN LEVEL 4-6; Start 08/03/16 at 15:30 Magnesium Hydroxide (Milk Of Mag) 30 ml Q24H PRN PO CONSTIPATION; Start at 15:30 Zolpidem Tartrate (Ambien) 5 mg QHS PRN PO SLEEP Last administered on 01:08; Admin Dose 5 MG; Start 08/03/16 at 15:30 Enoxaparin Sodium 40 mg 40 mg DAILY SC Last administered on 08/07/16 08:24; Admin Dose 40 MG; Start 08/04/16 at 09:00 Ceftriaxone Sodium (Rocephin) 50 ml @ 100 mls/hr DAILY IVPB Last administered on 08/07/16 08:22; Admin Dose 100 MLS/HR; Start 08/04/16 at 09:00 Miscellaneous Information 1 ea NOTE XX ; Start 08/03/16 at 15:30 Glucose (Glutose) 15 gm Q15M PRN PO DECREASED GLUCOSE; Start 08/03/16 at 15:30 Glucose (Glutose) 22.5 gm Q15M PRN PO DECREASED GLUCOSE; Start 08/03/16 at 15: 30 Dextrose (D50w Syringe) 25 ml Q15M PRN IV DECREASED GLUCOSE; Start 08/03/16 at 15:30 Dextrose (D50w Syringe) 50 ml Q15M PRN IV DECREASED GLUCOSE; Start 08/03/16 at 15:30 Glucagon (Glucagen) 1 mg Q15M PRN IM DECREASED GLUCOSE; Start 08/03/16 at 15:30 Glucose (Glutose) 15 gm Q15M PRN BUCCAL DECREASED GLUCOSE; Start 08/03/16 at 15 :30 Clopidogrel Bisulfate (plaVIX) 75 mg DAILY PO Last administered on 08/07/16 08 :23; Admin Dose 75 MG; Start 08/04/16 at 09:00 Fenofibrate (Tricor) 145 mg DAILY PO Last administered on 08/07/16 08:23; Admin Dose 145 MG; Start 08/04/16 at 09:00 Hydrochlorothiazide (Hydrochlorothiazide) 25 mg DAILY PO Last administered on 08:09; Admin Dose 25 MG; Start 08/04/16 at 09:00 Atorvastatin Calcium (Lipitor) 20 mg DAILY@21 PO Last administered on 20:40; Admin Dose 20 MG; Start 08/04/16 at 00:30 Silver Sulfadiazine (Thermazene 1% 25 Gm) 1 applic DAILY TOP Last administered on 08/07/16 08:23; Admin Dose 1 APPLIC; Start 08/05/16 at 11:30 Insulin Glargine (Lantus) 60 unit DAILY SC Last administered on 08/07/16 08:30 ; Admin Dose 60 UNIT; Start 08/07/16 at 09:00 MARIO MONTES MD Aug 07, 2016 20:57
[2016-08-08 08:01] VITALS: BP 119/72; RESP 20
[2016-08-08] MEDS: INSULIN ASPART [NOVOLOG] 3 ML PEN SC SCH ×7 (08:44→20:57)
[2016-08-08] MEDS: ENOXAPARIN 40 MG/0.4 ML SYG SC SCH (08:45)
[2016-08-08] MEDS: LISINOPRIL 10 MG TAB PO SCH (08:46)
[2016-08-08] MEDS: CLOPIDOGREL 75 MG TAB PO SCH (08:46)
[2016-08-08] MEDS: ASPIRIN (EC) 81 MG TAB PO SCH (08:46)
[2016-08-08] MEDS: FENOFIBRATE 145 MG TAB PO SCH (08:46)
[2016-08-08] MEDS: HYDROCHLOROTHIAZIDE 25 MG TAB PO SCH (08:47)
[2016-08-08] MEDS: SILVER SULFADIAZINE 1% 25 GM CR TOP SCH (08:47)
[2016-08-08] MEDS: CEFTRIAXONE 1 GM/50 ML (PMX) 50 ML IVPB SCH (08:57)
[2016-08-08] MEDS: INSULIN GLARGINE [LANtus] 3 ML PEN SC SCH (08:58)
[2016-08-08] MEDS: SOD CHLORIDE 0.9% 1,000 ML IV SCH ×2 (12:26→15:09)
--- NOTE | 2016-08-08 14:36 | CONS ---
DATE OF ADMISSION: 08/03/2016 DATE OF CONSULTATION: 08/08/2016 REFERRING PHYSICIAN: Dr. Zia Montes REASON FOR CONSULTATION: Evaluate right foot diabetic foot infection. HISTORY OF PRESENT ILLNESS: This is a very pleasant 55-year-old diabetic hypertensive gentleman. Audelia morfin is well known to me. He had some ulcers on the right anterior calf about a year ago. There were nonhealing. He had a full arterial and venous evaluation which was essentially normal. I treated audelia im with compression, and the wounds went on to heal fairly quickly. He has chronic kidney disease a s well, but we did an angiogram on him about a year ago which showed no arterial disease in the righ t lower extremity. Audelia had a duplex done on this admission which I reviewed, and looks essentially no rmal. There are normal velocities all the way down. There is some biphasic flow, but I think there is no stenosis in the right lower extremity, and this looks like mostly asleep from calcification o f the arteries. He was admitted here on the after he tried to cut his first toenail, it starte d bleeding, and then he developed infection and blistering. The infection spread over into the othe r toes. He has now been here on IV antibiotics for 5 days and it looks like the infection is mostly healed, there are just some ulcers which are clean. He has no pain. He has peripheral neuropathy. PAST MEDICAL HISTORY: Significant for diabetes, hypertension, hyperlipidemia, coronary artery dise ase. He has had a coronary stent in the past. He has chronic kidney disease. MEDICATIONS: Consist of: 1. Aspirin. 2. Plavix. 3. . 4. Fenofibrate. 5. Amaryl. 6. Hydrochlorothiazide. 7. Insulin. 8. Lisinopril. 9. Simvastatin. 10. Metformin. 11. . 12. Ceftriaxone. 13. SubQ Lovenox. ALLERGIES: NO KNOWN DRUG ALLERGIES. SOCIAL HISTORY: He is a nonsmoker. He does not drink or use any illicit drugs. FAMILY HISTORY: Noncontributory. REVIEW OF SYSTEMS: Currently he denies any issues as he has never had any pain in the foot, even wh en it was acutely infected and blistering. He has peripheral neuropathy. He actually says he has m ore pain in the left foot than the right and the left foot has no wounds or anything, and this is a chronic pain. He denies any chest pain, shortness of breath, nausea, vomiting, diarrhea. No fever, no chills, no recent weight gain or weight loss. No abdominal or back pain. PHYSICAL EXAMINATION GENERAL: He is an elderly middle-aged gentleman. He is an Arabic speaker. He is in no distress. VITAL SIGNS: He has been afebrile. His blood pressure is 119/72, heart rate 64, respiratory rate i s 20, 97% sat on room air. NECK: He has 2+ carotid pulses bilaterally, 2+ radial and brachial pulses bilaterally. LUNGS: Clear. HEART: Regular rate and rhythm. ABDOMEN: Soft, nontender, nondistended. EXTREMITIES: He has 3+ femoral, popliteal, and a 3+ right DP pulse, 1+ right PT pulse. On the left there is a 1+ DP pulse and 3+ PT pulse. There are no lesions in the left and his foot is warm and pink. On the right he has some superficial ulcerations over essentially the tips of all the toes. There is some necrosis of the superficial skin. There does not appear to be any deep involvement of the subcutaneous tissue. It looks like it is just the dermis. IMAGING: X-ray of the foot shows no osteo, he has got some arthritis, and again I reviewed his elena rial duplex which essentially normal in the right lower extremity consistent with physical exam. IMPRESSION: Right lower extremity diabetic foot ulcer. It looks like it is resolving with the IV a ntibiotics. He has no significant arterial insufficiency. He does not appear to need any revascula rization. This is going to heal with wound care which Dr. Sanchez is seeing him for. It looks to me like he could be transitioned to p.o. antibiotics and discharged home with wound care at this point . I will see him back in the office next week just to make sure everything is progressing properly. Dictated By: ADALID CARLSON/KONRAD Conf#: [id number] DID#: [id number] CC: HARVEY SANCHEZ DPM; ZIA MONTES MD;*EndCC*
--- NOTE | 2016-08-08 19:21 | PN ---
Date/Time of Note Date/Time of Note DATE: 08/08/16 TIME: 19:19 Assessment/Plan VTE Prophylaxis VTE Prophylaxis Intervention: other Lines/Catheters IV Catheter Type (from [facility]): Peripheral IV Assessment/Plan Chief Complaint/Hosp Course IMPRESSION: 1. Right foot ulcer and wound. BETTER 2. Leukocytosis. BETTER 3. Hyperkalemia.HX 4. Patient has metabolic acidosis. 5. Diabetes mellitus. 6. Coronary artery disease. 7. History of coronary angiogram with stent placement. 8. Leukocytosis. 9. History of dyslipidemia. plan wound care per dr hernandez ANTIBIOTIC DR LANG TO SEE HOME SOON Problems: Subjective 24 Hr Interval Summary ENT: no complaints Respiratory: no complaints Exam/Review of Systems Vital Signs Vitals Vital Signs Date Time Temp Pulse Resp B/P Pulse Ox O2 Delivery O2 Flow Rate FiO2 08/08/16 08:01 98.3 64 20 119/72 97 08/07/16 20:00 Room Air Intake and Output 08/07/16 08/07/16 08/08/16 15:00 23:00 07:00 Intake Total 350 ml 730 ml 850 ml Balance 350 ml 730 ml 850 ml Exam Neck: supple Respiratory: clear to auscultation Cardiovascular: regular rate and rhythm Gastrointestinal: soft Musculoskeletal: nl extremities to inspection Extremities: normal pulses Results Result Diagram: 08/05/16 0710 08/05/16 0710 Results 24 hrs Laboratory Tests Test 08/07/16 20:07 08/08/16 08:29 08/08/16 12:06 08/08/16 17:32 Bedside Glucose 297 H 148 271 H 155 Medications Medications Current Medications Aspirin (Halfprin) 81 mg DAILY PO Last administered on 08/08/16 08:46; Admin Dose 81 MG; Start 08/04/16 at 09:00 Lisinopril 10 mg 10 mg DAILY PO Last administered on 08/08/16 08:46; Admin Dose 10 MG; Start 08/04/16 at 09:00 Sodium Chloride (NS) 1,000 ml @ 50 mls/hr Q20H IV Last administered on 12:26; Admin Dose 50 MLS/HR; Start 08/03/16 at 15:09 Acetaminophen (Tylenol Tab) 650 mg Q6H PRN PO PAIN LEVEL 1-3 OR FEVER; Start at 15:30 Acetaminophen/ Hydrocodone Bitart ([place] (5/325)) 1 tab Q6H PRN PO MODERATE PAIN LEVEL 4-6; Start 08/03/16 at 15:30 Magnesium Hydroxide (Milk Of Mag) 30 ml Q24H PRN PO CONSTIPATION; Start at 15:30 Zolpidem Tartrate (Ambien) 5 mg QHS PRN PO SLEEP Last administered on 01:08; Admin Dose 5 MG; Start 08/03/16 at 15:30 Enoxaparin Sodium 40 mg 40 mg DAILY SC Last administered on 08/08/16 08:45; Admin Dose 40 MG; Start 08/04/16 at 09:00 Ceftriaxone Sodium (Rocephin) 50 ml @ 100 mls/hr DAILY IVPB Last administered on 08/08/16 08:57; Admin Dose 100 MLS/HR; Start 08/04/16 at 09:00 Miscellaneous Information 1 ea NOTE XX ; Start 08/03/16 at 15:30 Glucose (Glutose) 15 gm Q15M PRN PO DECREASED GLUCOSE; Start 08/03/16 at 15:30 Glucose (Glutose) 22.5 gm Q15M PRN PO DECREASED GLUCOSE; Start 08/03/16 at 15: 30 Dextrose (D50w Syringe) 25 ml Q15M PRN IV DECREASED GLUCOSE; Start 08/03/16 at 15:30 Dextrose (D50w Syringe) 50 ml Q15M PRN IV DECREASED GLUCOSE; Start 08/03/16 at 15:30 Glucagon (Glucagen) 1 mg Q15M PRN IM DECREASED GLUCOSE; Start 08/03/16 at 15:30 Glucose (Glutose) 15 gm Q15M PRN BUCCAL DECREASED GLUCOSE; Start 08/03/16 at 15 :30 Clopidogrel Bisulfate (plaVIX) 75 mg DAILY PO Last administered on 08/08/16 08 :46; Admin Dose 75 MG; Start 08/04/16 at 09:00 Fenofibrate (Tricor) 145 mg DAILY PO Last administered on 08/08/16 08:46; Admin Dose 145 MG; Start 08/04/16 at 09:00 Hydrochlorothiazide (Hydrochlorothiazide) 25 mg DAILY PO Last administered on 08:47; Admin Dose 25 MG; Start 08/04/16 at 09:00 Atorvastatin Calcium (Lipitor) 20 mg DAILY@21 PO Last administered on 20:56; Admin Dose 20 MG; Start 08/04/16 at 00:30 Silver Sulfadiazine (Thermazene 1% 25 Gm) 1 applic DAILY TOP Last administered on 08/08/16 08:47; Admin Dose 1 APPLIC; Start 08/05/16 at 11:30 Insulin Glargine (Lantus) 60 unit DAILY SC Last administered on 08/08/16 08:58 ; Admin Dose 60 UNIT; Start 08/07/16 at 09:00 MARIO MONTES MD Aug 08, 2016 19:21
[2016-08-08 19:50] VITALS: BP 99/60; RESP 18
[2016-08-08] MEDS: ATORVASTATIN 20 MG TAB PO SCH (20:55)
[2016-08-09 07:15] VITALS: BP 131/66; RESP 18
[2016-08-09] MEDS: INSULIN ASPART [NOVOLOG] 3 ML PEN SC SCH ×7 (08:00→21:12)
[2016-08-09] MEDS: ENOXAPARIN 40 MG/0.4 ML SYG SC SCH (08:33)
[2016-08-09] MEDS: CEFTRIAXONE 1 GM/50 ML (PMX) 50 ML IVPB SCH (08:35)
[2016-08-09] MEDS: ASPIRIN (EC) 81 MG TAB PO SCH (08:37)
[2016-08-09] MEDS: CLOPIDOGREL 75 MG TAB PO SCH (08:39)
[2016-08-09] MEDS: FENOFIBRATE 145 MG TAB PO SCH (08:39)
[2016-08-09] MEDS: HYDROCHLOROTHIAZIDE 25 MG TAB PO SCH (08:39)
[2016-08-09] MEDS: LISINOPRIL 10 MG TAB PO SCH (08:39)
[2016-08-09] MEDS: SILVER SULFADIAZINE 1% 25 GM CR TOP SCH (08:40)
[2016-08-09] MEDS: INSULIN GLARGINE [LANtus] 3 ML PEN SC SCH (09:57)
[2016-08-09] MEDS: SOD CHLORIDE 0.9% 1,000 ML IV SCH (09:58)
--- NOTE | 2016-08-09 18:15 | PDOCDIS ---
Discharge Instructions CONDITION Patient Condition: Stable HOME CARE INSTRUCTIONS: Special Diet: 1800 CALORIE ACTIVITY: Activity Restrictions: Slowly Increase Activity FOLLOW UP/APPOINTMENTS Appointments f/u own pcp [address] montes renal [address] hernandez [address] james 2 wks MARIO MONTES MD Aug 09, 2016 18:15
[2016-08-09] MEDS ORDERED: DOXY-220 PO (18:17)
[2016-08-09] MEDS ORDERED: SSD1C20 TOP (18:17)
--- NOTE | 2016-08-09 19:49 | PN ---
Date/Time of Note Date/Time of Note DATE: 08/09/16 TIME: 19:49 Assessment/Plan VTE Prophylaxis VTE Prophylaxis Intervention: other Lines/Catheters [facility] Peripheral IV Urinary Cath still in place: No Assessment/Plan Chief Complaint/Hosp Course IMPRESSION: 1. Right foot ulcer and wound. BETTER 2. Leukocytosis. BETTER 3. Hyperkalemia.HX 4. Patient has metabolic acidosis. 5. Diabetes mellitus. 6. Coronary artery disease. 7. History of coronary angiogram with stent placement. 8. Leukocytosis. 9. History of dyslipidemia. plan wound care per dr hernandez ANTIBIOTIC DR LANG TO SEE HOME Problems: Subjective 24 Hr Interval Summary Respiratory: no complaints Cardiovascular: no complaints Exam/Review of Systems Vital Signs Vitals Vital Signs Date Time Temp Pulse Resp B/P Pulse Ox O2 Delivery O2 Flow Rate FiO2 08/09/16 07:15 98.6 72 18 131/66 98 08/07/16 20:00 Room Air Intake and Output 08/08/16 08/08/16 08/09/16 15:00 23:00 07:00 Intake Total 350 ml 920 ml 1550 ml Balance 350 ml 920 ml 1550 ml Exam Respiratory: clear to auscultation Cardiovascular: regular rate and rhythm Gastrointestinal: soft Musculoskeletal: nl extremities to inspection Results Result Diagram: 08/05/16 0710 08/05/16 0710 Results 24 hrs Laboratory Tests Test 08/08/16 20:57 08/09/16 07:45 08/09/16 11:39 08/09/16 17:26 Bedside Glucose 167 106 203 180 Medications Medications Current Medications Aspirin (Halfprin) 81 mg DAILY PO Last administered on 08/09/16 08:37; Admin Dose 81 MG; Start 08/04/16 at 09:00 Lisinopril 10 mg 10 mg DAILY PO Last administered on 08/09/16 08:39; Admin Dose 10 MG; Start 08/04/16 at 09:00 Sodium Chloride (NS) 1,000 ml @ 50 mls/hr Q20H IV Last administered on 09:58; Admin Dose 50 MLS/HR; Start 08/03/16 at 15:09 Acetaminophen (Tylenol Tab) 650 mg Q6H PRN PO PAIN LEVEL 1-3 OR FEVER; Start at 15:30 Acetaminophen/ Hydrocodone Bitart ([place] (5/325)) 1 tab Q6H PRN PO MODERATE PAIN LEVEL 4-6; Start 08/03/16 at 15:30 Magnesium Hydroxide (Milk Of Mag) 30 ml Q24H PRN PO CONSTIPATION; Start at 15:30 Zolpidem Tartrate (Ambien) 5 mg QHS PRN PO SLEEP Last administered on 01:08; Admin Dose 5 MG; Start 08/03/16 at 15:30 Enoxaparin Sodium 40 mg 40 mg DAILY SC Last administered on 08/09/16 08:33; Admin Dose 40 MG; Start 08/04/16 at 09:00 Ceftriaxone Sodium (Rocephin) 50 ml @ 100 mls/hr DAILY IVPB Last administered on 08/09/16 08:35; Admin Dose 100 MLS/HR; Start 08/04/16 at 09:00 Miscellaneous Information 1 ea NOTE XX ; Start 08/03/16 at 15:30 Glucose (Glutose) 15 gm Q15M PRN PO DECREASED GLUCOSE; Start 08/03/16 at 15:30 Glucose (Glutose) 22.5 gm Q15M PRN PO DECREASED GLUCOSE; Start 08/03/16 at 15: 30 Dextrose (D50w Syringe) 25 ml Q15M PRN IV DECREASED GLUCOSE; Start 08/03/16 at 15:30 Dextrose (D50w Syringe) 50 ml Q15M PRN IV DECREASED GLUCOSE; Start 08/03/16 at 15:30 Glucagon (Glucagen) 1 mg Q15M PRN IM DECREASED GLUCOSE; Start 08/03/16 at 15:30 Glucose (Glutose) 15 gm Q15M PRN BUCCAL DECREASED GLUCOSE; Start 08/03/16 at 15 :30 Clopidogrel Bisulfate (plaVIX) 75 mg DAILY PO Last administered on 08/09/16 08 :39; Admin Dose 75 MG; Start 08/04/16 at 09:00 Fenofibrate (Tricor) 145 mg DAILY PO Last administered on 08/09/16 08:39; Admin Dose 145 MG; Start 08/04/16 at 09:00 Hydrochlorothiazide (Hydrochlorothiazide) 25 mg DAILY PO Last administered on 08:39; Admin Dose 25 MG; Start 2/18/17 at 09:00 Atorvastatin Calcium (Lipitor) 20 mg DAILY@21 PO Last administered on 20:55; Admin Dose 20 MG; Start 08/04/16 at 00:30 Silver Sulfadiazine (Thermazene 1% 25 Gm) 1 applic DAILY TOP Last administered on 08/09/16 08:40; Admin Dose 1 APPLIC; Start 08/05/16 at 11:30 Insulin Glargine (Lantus) 60 unit DAILY SC Last administered on 08/09/16 09:57 ; Admin Dose 60 UNIT; Start 08/07/16 at 09:00 MARIO MONTES MD Aug 09, 2016 19:49
[2016-08-09] MEDS: ATORVASTATIN 20 MG TAB PO SCH (21:05)
== END 2016-08-09 22:19 | disposition home or self-care (01) | DRG 638 ==
LOC: E/R 12:17 → OBG 15:07 → PP2 08-08 10:41
PROVIDERS: ADMIT Internal Medicine Nephrology; ATTEND Internal Medicine Nephrology
DX: E11.621 Type 2 diabetes mellitus with foot ulcer (principal); L03.115 Cellulitis of right lower limb; E11.40 Type 2 diabetes mellitus with diabetic neuropathy, unspecified; E11.628 Type 2 diabetes mellitus with other skin complications; I12.9 Hypertensive chronic kidney disease with stage 1 through stage 4 chronic kidney disease, or unspecified chronic kidney disease; N18.9 Chronic kidney disease, unspecified; Z95.5 Presence of coronary angioplasty implant and graft; E87.5 Hyperkalemia
CPT/HCPCS: 36415; 71010; 73630; 80048; 80053; 81003; 82962; 83036; 83605; 84484; 85025; 85610; 85730; 87040; 87086; 90471; 90686; 93005; 93922; 96372; 96374; 96375; J0696; J1650; J1815; J3370; J7030; J7050

== ENCOUNTER 2018-10-04 23:10 | Inpatient (IN) | payer OTHER ==
[~2018-10-04] VITALS: Ht 172.7 cm; Wt 90.5 kg
[~2018-10-04 23:10] MED LIST changes: -ASPI-664 PO; +ASPI-817 PO; +DAPA10TA PO; +DOXY100T21 PO; +FENO145T37 PO; +HYDR25TA6 PO; +INSU300I SQ; -LEVO500S PO; -METF1000 PO; +SIMV40TA3 PO; +SITA1TAB5 PO; -SMV40T PO; +SSD1C20 TOP
[2018-10-05] VITALS (8 sets, daily range): BP systolic 98–121; BP diastolic 52–71; PULSE 68–79; RESP 18–29; Ht 172.7 cm; Wt 90.5 kg
[2018-10-05] MEDS ORDERED: FAMOTIDINE 20 MG TAB PO STA (01:41)
[2018-10-05] MEDS ORDERED: METOCLOPRAMIDE 10 MG INJ IV STA (01:41)
[2018-10-05] MEDS ORDERED: SOD CHLORIDE 0.9% 1,000 ML IV STA (01:41)
[2018-10-05] MEDS ORDERED: LIDOCAINE/MYLANTA 40 ML BTL PO STA (01:41)
[2018-10-05] MEDS ORDERED: DEXTROSE 10 %/0.45 % NACL 1,000 ML IV SCH (03:26)
[2018-10-05] MEDS ORDERED: D10/0.45% NACL + KCL 30 MEQ 1,000 ML IV SCH (03:26)
[2018-10-05] MEDS ORDERED: SOD CHLORIDE 0.9% 1,000 ML IV SCH (03:26)
[2018-10-05] MEDS ORDERED: D10/0.45% NACL + KCL 40 MEQ 1,000 ML IV SCH (03:26)
[2018-10-05] MEDS ORDERED: NS + KCL 40 MEQ 1,000 ML IV SCH (03:26)
[2018-10-05] MEDS ORDERED: NS + KCL 30 MEQ 1,000 ML IV SCH (03:26)
[2018-10-05] MEDS ORDERED: DEXTROSE 50% 50 ML SYRINGE IV PRN ×2 (03:30)
[2018-10-05] MEDS ORDERED: LACTATED RINGER'S 910 ML IV ONE (03:30)
[2018-10-05] MEDS ORDERED: INSULIN REGULAR, HUMAN 100 UNIT in SOD CHLORIDE 0.9% 100 ML IV SCH ×2 (03:30)
--- NOTE | 2018-10-05 05:33 | ERD ---
ER Documentation Chief Complaint Chief Complaint generalize body weakness/fatigue/poor appetite x 4 days. also c/o cp HPI 57-year-old male with a history of hypertension and diabetes presenting with complaints of generalized weakness and poor appetite for the past 4 days.. He he has had some mild chest discomfort as well that he states is a burning in the center of his chest. No associated shortness of breath. No associated fever, chills, nausea, vomiting, diarrhea, abdominal pain, headache, vision disturbance, focal weakness or numbness. Otherwise he denies any other complaints. He is urinating normally with no dysuria. ROS All systems reviewed and are negative except as per history of present illness. Medications Home Meds Reported Medications Lidocaine 4% Topical (Lidocaine HCl) 4%-50 Ml Soln, 1 APPLIC MM BID, BOT 10/07/18 Latanoprost (Latanoprost) 2.5 Ml Drops, 1 DROP BOTH EYES QHS, #1 BOTTLE 10/07/18 Artificial Tears* (Akwa Oint*) 3.5 Gm Oint, 1 APPLIC BOTH EYES BID, #1 TUB 10/07/18 Brinzolamide-Brimonidine (Simbrinza 1%-0.2% Oph) 1%-0.2% - 8 Ml Drops.susp, 1 DROP BOTH EYES BID, EA 10/07/18 Tamsulosin Hcl* (Flomax*) 0.4 Mg Cap.er.24h, 0.4 MG PO BID, CAP 10/07/18 Montelukast Sodium* (Montelukast Sodium*) 10 Mg Tablet, 10 MG PO QHS, #30 TAB 10/05/18 Ezetimibe* (Zetia*) 10 Mg Tablet, 10 MG PO DAILY, TAB 10/05/18 Aspirin (Low Dose Aspirin) 81 Mg Tablet.dr, 81 MG PO DAILY, #30 TAB 10/05/18 Loratadine* (Loratadine*) 10 Mg Tablet, 10 MG PO DAILY, #30 TAB 10/05/18 Amitriptyline Hcl* (Amitriptyline Hcl*) 25 Mg Tablet, 25 MG PO QHS, #30 TAB 10/05/18 Clopidogrel Bisulfate (Clopidogrel) 75 Mg Tablet, 75 MG PO DAILY, #30 TAB 10/05/18 Empagliflozin (Jardiance) 25 Mg Tablet, 25 MG PO DAILY, TAB 10/05/18 Dulaglutide (Trulicity) 1.5 Mg/0.5 Ml Pen.injctr, 1.5 MG SQ EVERY Saturday10/05/18 Simvastatin* (Zocor*) 40 Mg Tablet, 40 MG PO QHS, #30 TAB 10/05/18 Lisinopril* (Lisinopril*) 10 Mg Tablet, 10 MG PO DAILY, #30 TAB 10/05/18 Fenofibrate Nanocrystallized* (Fenofibrate*) 145 Mg Tablet, 145 MG PO DAILY, TAB 10/05/18 Insulin Glargine,Hum.rec.anlog ([facility]) 300 Unit/1 Ml Insuln.pen, 60 UNIT SQ QAM, EA 10/05/18 Discontinued Reported Medications Tamsulosin Hcl* (Flomax*) 0.4 Mg Cap.er.24h, 0.4 MG PO DAILY, CAP 10/05/18 Dapagliflozin Propanediol (Farxiga) 10 Mg Tablet, 10 MG PO QAM, #30 TAB 08/03/16 Hydrochlorothiazide* (Hydrochlorothiazide*) 25 Mg Tab, 25 MG PO DAILY, #30 TAB 08/03/16 Fenofibrate Nanocrystallized* (Fenofibrate*) 145 Mg Tablet, 145 MG PO DAILY, TAB 08/03/16 Sitagliptin Phos/Metformin HCl (Janumet 50-1,000 mg Tablet) 1 Each Tablet, 1 TAB PO BID, TAB 08/03/16 Insulin Glargine,Hum.rec.anlog ([facility]) 300 Unit/1 Ml Insuln.pen, 55 UNIT SQ DAILY 08/03/16 Lisinopril* (Lisinopril*) 10 Mg Tablet, 10 MG PO DAILY, TAB 07/12/14 Glimepiride* (Glimepiride*) 4 Mg Tablet, 4 MG PO BID, TAB 07/12/14 Simvastatin (Simvastatin) 40 Mg Tablet, 40 MG PO HS, TAB 07/12/14 Discontinued Scripts Doxycycline Monohydrate* (Doxycycline Monohydrate*) 100 Mg Tablet, 100 MG PO BID for 10 Days, TAB Prov:MARIO MONTES MD 08/09/16 Silver Sulfadiazine (THERMAZENE 1% 25 GM) 1 Applic Cr, 1 APPLIC TOP DAILY for 28 Days Prov:MARIO MONTES MD 08/09/16 Clopidogrel Bisulfate (Clopidogrel) 75 Mg Tablet, 75 MG PO DAILY, #30 TAB Prov:ROB TAYLOR BALLPOINT [employer]STER 09/07/14 Aspirin* (Aspirin* EC) 81 Mg Tablet.dr, 81 MG PO DAILY, #30 TAB Prov:ROB TAYLOR BALLPOINT [employer] TESTER 09/07/14 Allergies Allergies: Coded Allergies: No Known Allergy (Unverified , 10/05/18) PMhx/Soc History of Surgery: Yes (Coronary stents ) Anesthesia Reaction: No Hx Neurological Disorder: No Hx Respiratory Disorders: No Hx Cardiac Disorders: Yes (hypertension, CAD) Hx Psychiatric Problems: No Hx Miscellaneous Medical Probl: Yes (Diabetes) Hx Alcohol Use: No Hx Substance Use: No Hx Tobacco Use: No Smoking Status: Never smoker FmHx Family History: No diabetes Physical Exam Vitals Vital Signs Date Temp Pulse Resp B/P (MAP) Pulse Ox O2 O2 Flow FiO2 Time Delivery Rate 10/05/18 98.3 85 20 100/71 94 Room Air 05:00 (81) 10/05/18 98.4 88 20 105/59 94 Room Air 04:00 (74) 10/05/18 98.3 81 20 113/66 95 Room Air 01:45 (82) 10/04/18 98.3 105 20 102/57 98 23:13 (72) Physical Exam Const: Appears to be in mild distress, ill-appearing, somewhat pale Head: Atraumatic Eyes: Normal Conjunctiva, PERRLA, EOMI ENT: Dry mucous membranes. Normal External Ears, Nose and Mouth. Neck: Full range of motion. No meningismus. Resp: Clear to auscultation bilaterally Cardio: Regular rate and rhythm, no murmurs. 2+ distal pulses Abd: Soft, non tender, non distended. Normal bowel sounds Skin: Pale. No petechiae or rashes Back: No midline or flank tenderness Ext: No cyanosis, or edema Neur: Awake and alert, oriented x3, normal speech, cranial nerves intact, strength and sensations intact in all 4 extremities. Normal gait. Psych: Normal Mood and Affect Result Diagram: 10/07/18 0510 10/07/18 0510 Results 24 hrs Laboratory Tests Test 10/05/18 01:40 10/05/18 03:07 10/05/18 03:26 10/05/18 04:00 White Blood 26.2 10^3/ul Count Red Blood Count 4.92 10^6/ul Hemoglobin 14.7 g/dl Hematocrit 43.8 % Mean 89.0 fl Corpuscular Volume Mean 29.9 pg Corpuscular Hemoglobin Mean 33.6 g/dl Corpuscular Hemoglobin Conc ent Red Cell 12.5 % Distribution Width Platelet Count 230 10^3/UL Mean Platelet 11.0 fl Volume Immature 9.900 % Granulocytes % Neutrophils % % Segmented 81 % Neutrophils % (Manual) Band 6 % Neutrophils % (Manual) Lymphocytes % % Lymphocytes % 8 % (Manual) Monocytes % % Monocytes % 5 % (Manual) Eosinophils % % Basophils % % Nucleated Red 0.0 /100WBC Blood Cells % Immature 2.590 10^3/ul Granulocytes # Neutrophils # 10^3/ul Neutrophils # 21.6 10^3/ul (Manual) Band 1.5 10^3/ul Neutrophils # Lymphocytes 2.0 10^3/ul (Manual) Lymphocytes # 10^3/ul Monocytes # 10^3/ul Monocytes # 1.3 10^3/ul (Manual) Eosinophils # 10^3/ul Basophils # 10^3/ul Nucleated Red 10^3/ul Blood Cells # Platelet NORMAL Estimate Polychromasia 2+ Poikilocytosis 1+ Sodium Level 137 mmol/L Potassium Level 5.8 mmol/L Chloride Level 96 mmol/L Carbon Dioxide 17 mmol/L Level Anion Gap 24 Blood Urea 54 mg/dl Nitrogen Creatinine 2.63 mg/dl Est Glomerular 25 mL/min Filtrat Rate mL/min Glucose Level 662 mg/dl Hemoglobin A1c 12.1 % Calcium Level 10.1 mg/dl Phosphorus 4.4 mg/dl Level Magnesium Level 2.9 mg/dl Total Bilirubin 0.5 mg/dl Direct 0.00 mg/dl Bilirubin Indirect 0.5 mg/dl Bilirubin Aspartate Amino 32 IU/L Transf (AST/SGO T) Alanine 37 IU/L Aminotransferas e (ALT/SGPT) Alkaline 129 IU/L Phosphatase Troponin I < 0.012 ng/ml Total Protein 8.1 g/dl Albumin 4.5 g/dl Globulin 3.60 g/dl Albumin/Globuli 1.25 n Ratio Lipase 230 U/L Urine Color STRAW Urine Clarity CLEAR Urine pH 5.0 Urine Specific 1.025 [place] Urine Ketones 1+ mg/dL Urine Nitrite NEGATIVE mg/dL Urine Bilirubin NEGATIVE mg/dL Urine NEGATIVE mg/dL Urobilinogen Urine Leukocyte NEGATIVE Issac/ul Esterase Urine 1 /HPF Microscopic RBC Urine 15 /HPF Microscopic WBC Urine Bacteria FEW /HPF Urine 2+ mg/dL Hemoglobin Urine Glucose 3+ mg/dL Urine Total NEGATIVE mg/dl Protein Blood Gas Blood venous Specimen Source Arterial Blood 10/05/2018 3:40: Date Drawn 00 AM Arterial Blood VENOUS LINE Gas Puncture Site Nathan Test N/A Venous Blood pH 7.283 Venous Blood 31.9 mmHG pCO2 (Temp Corrected ) Venous Blood 27.9 mmHG pO2 (Temp Corrected ) Venous Blood 14.8 mmol/L HCO3 Venous Blood 51.7 mmHG Oxygen Saturation Venous Blood -10.7 mmol/L Base Excess Venous Blood 14.0 g/dl Total Hemoglobin Venous Blood 51.3 % Oxyhemoglobin Venous Blood 0.2 % Methemoglobin Carboxyhemoglob 0.6 % in Blood Gas 37.0 C Temperature Blood Gas 18 Actual Respiration Rat e Blood Gas ROOM AIR Modality FiO2 21.0 % Blood Gas Notified Whom Blood Gas 10/05/2018 3:48: Notified Time 07 AM Bedside Glucose 528 mg/dL Test 10/05/18 05:13 Bedside Glucose 468 mg/dL Current Medications Medications Dose Sig/Belén Start Time Status Last (Trade) Ordered Route PRN Stop Time Admin Dose Reason Admin Sodium 1,000 ml @ Q1H STAT 10/05/18 DC 10/05/18 Chloride 1,000 mls/hr IV 01:41 01:55 10/05/18 02:40 10 mg ONCE STAT 10/05/18 DC 10/05/18 Metoclopramid IV 01:41 01:55 e HCl 10/05/18 01:42 (Reglan) Famotidine 20 mg ONCE STAT 10/05/18 DC 10/05/18 (Pepcid) PO 01:41 01:55 10/05/18 01:42 40 ml ONCE STAT 10/05/18 DC 10/05/18 Miscellaneous PO 01:41 01:55 Medication 10/05/18 01:42 (Gi Cocktail (2)) Potassium 1,000 ml @ Q0M IV 10/05/18 DC Chloride/Sodi 0 mls/hr 03:26 um Chloride 10/05/18 23:54 Potassium 1,000 ml @ Q0M IV 10/05/18 DC Chloride/Dext 0 mls/hr 03:26 gerson/ Sod Cl 10/05/18 23:54 Potassium 1,000 ml @ Q0M IV 10/05/18 DC 10/05/18 Chloride/Sodi 0 mls/hr 03:26 07:16 um Chloride 10/05/18 23:54 Potassium 1,000 ml @ Q0M IV 10/05/18 DC 10/05/18 Chloride/Dext 0 mls/hr 03:26 10:15 gerson/ Sod Cl 10/05/18 23:54 Sodium 1,000 ml @ Q0M IV 10/05/18 DC 10/05/18 Chloride 0 mls/hr 03:26 03:51 10/05/18 23:54 1,000 ml @ Q0M IV 10/05/18 DC Dextrose/Sodi 0 mls/hr 03:26 um Chloride 10/05/18 23:54 Insulin 101 ml @ ER DKA 10/05/18 DC 10/05/18 Human 9.19 mls/hr PROTOCOL IV 03:30 04:15 Regular 100 10/05/18 23:54 unit/ Sodium Chloride Lactated 910 ml @ ONCE ONCE 10/05/18 DC 10/05/18 Ringer's 910 mls/hr IV 03:30 03:50 10/05/18 04:29 HYPOGLYCEM 10/05/18 DC Miscellaneous HYPOGLYCEMIA PROTOCOL PRN 03:30 TREATMENT XX 10/06/18 15:37 Information .HYPOGLYCEMIA (* PROTOCOL Miscellaneous Pharmacy Order) Dextrose 50 ml Q15M PRN 10/05/18 DC (D50w IV 03:30 Syringe) .DECREASED 10/06/18 15:37 GLUCOSE Dextrose 25 ml Q15M PRN 10/05/18 DC (D50w IV 03:30 Syringe) .DECREASED 10/06/18 15:37 GLUCOSE Procedures/MDM EMERGENT LABS AND DIAGNOSTIC STUDIES: Lab Results above were reviewed and interpreted by me. CBC: Leukocytosis, unclear etiology, concerning for possible infection. No anemia CMP: Hyperglycemia with elevated BUN and creatinine, concerning for renal failure. Hyperkalemic. Acidosis, with evidence of DKA. No evidence of liver disease Lipase: no evidence of pancreatitis Troponin within normal limits, not indicative of cardiac ischemia UA: 1+ ketones. No evidence of infection 12-lead EKG was interpreted by Leif Bautista MD: Normal Sinus Rhythm Normal axis Normal intervals No acute ST or T wave changes suggestive of acute ischemia or STEMI. Radiology Results as interpreted by Radiology below were reviewed by Maggie Bautista MD: Chest x-ray shows no acute abnormalities Initial Nursing notes reviewed. Previous Medical Records requested via the Electronic Health Record. EMERGENCY DEPARTMENT COURSE / MEDICAL DECISION MAKING: Patient is presenting with generalized weakness of unclear etiology. He has no source of infection on history or exam. Vitals were notable for only mild tachycardia upon arrival but otherwise unremarkable. General workup was initiated and showing evidence of acute renal failure with hyperkalemia and acidosis with hyperglycemia. This is concerning for DKA. For this reason DKA protocol was initiated. A lower suspicion for acidosis secondary to lactic acidosis. Although the patient had leukocytosis, there was no clear source of infection on exam, so sepsis is unlikely. . Patient was given IV hydration and started on insulin drip. I spoke with the admitting physician, who accepted the patient for admission to ICU. Critical Care Time: 40 minutes Treatments/Evaluations: Close monitoring and treatment of unstable vital signs, cardiorespiratory, and neurologic status, while maintaining tight balance of fluid, respiratory, and cardiac interventions. This time includes discussing the case with the patient and the patients family. This time does not include all procedures stated elsewhere in this record. This time also includes reviewing old records, labs and radiological studies. This time includes examining and re- examining the patient. Additionally, this time also includes arranging care with admitting and consulting physicians. Accepting Care Team: Current data and ongoing care discussed. Time: Time of admission Primary Provider: Dr. Higgins, prevention specialist for Dr Montes Outstanding Data: none Departure Diagnosis: Primary Impression: Diabetic ketoacidosis Diabetes mellitus type: type 2 Diabetes mellitus complication detail: without coma Qualified Codes: E11.10 - Type 2 diabetes mellitus with ketoacidosis without coma Additional Impressions: Acute weakness Acute renal failure Acute renal failure type: unspecified Qualified Codes: N17.9 - Acute kidney failure, unspecified Hyperkalemia Leukocytosis Leukocytosis type: unspecified Qualified Codes: D72.829 - Elevated white blood cell count, unspecified Condition: Serious ANNIE BAUTISTA MD Oct 05, 2018 05:33 LUCIAN BAILEY Oct 05, 2018 07:55
[2018-10-05] MEDS ORDERED: PANTOPRAZOLE 40 MG INJ IV SCH (06:45)
[2018-10-05] MEDS ORDERED: ONDANSETRON 4 MG INJ IV PRN (07:00)
[2018-10-05] MEDS ORDERED: ACETAMINOPHEN 650MG/20.3ML CUP PO PRN (07:00)
[2018-10-05] MEDS ORDERED: ALBUTEROL/IPRATROPIUM (NEB) 3 ML AMP NEB PRN (07:00)
--- NOTE | 2018-10-05 07:47 | HP ---
LUCIAN BAILEY 10/05/18 0747: Date/Time of Note Date/Time of Note DATE: 10/05/18 TIME: 07:44 Assessment/Plan VTE Prophylaxis Pharmacological prophylaxis: LMWH Lines/Catheters IV Catheter Type (from Nrs): Saline Lock Assessment/Plan Hospital Course 1.DKA, BS is in 450. Chest xray is clear, UA is positive for increased WBC, negative for leucocyte esterase. 2. Hx of DM type II 3. Overweight 4. Hx of CAD with tstatus post PCI on 07/12/2014 to the proximal to mid left anterior descending. by dr Fisher 5. SIRS with WBC 26 6. SUSAN. Cr 2.63 7. Hx of Hypertension. 8. Dyslipidemia. 9. Hx of environmental allergies Assessment/Plan -icu on insulin drip -frequent BMP -DVT prophylaxis lovenox GI prophylaxis protonix IV -NPO -gentle IV fluids -Recephin IV Result Diagram: 10/05/18 0140 10/05/18 0556 Results 24hrs Laboratory Tests Test 10/05/18 01:40 10/05/18 03:07 10/05/18 03:26 10/05/18 04:00 White Blood 26.2 #H Count Red Blood Count 4.92 Hemoglobin 14.7 Hematocrit 43.8 Mean Corpuscular 89.0 Volume Mean Corpuscular 29.9 Hemoglobin Mean Corpuscular 33.6 Hemoglobin Amisha nt Red Cell 12.5 Distribution Width Platelet Count 230 Mean Platelet 11.0 #H Volume Immature 9.900 H Granulocytes % Neutrophils % Segmented 81 H Neutrophils % (Manual) Band Neutrophils 6 H % (Manual) Lymphocytes % Lymphocytes % 8 L (Manual) Monocytes % Monocytes % 5 (Manual) Eosinophils % Basophils % Nucleated Red 0.0 Blood Cells % Immature 2.590 H Granulocytes # Neutrophils # Neutrophils # 21.6 H (Manual) Band Neutrophils 1.5 H # Lymphocytes 2.0 (Manual) Lymphocytes # Monocytes # Monocytes # 1.3 H (Manual) Eosinophils # Basophils # Nucleated Red Blood Cells # Platelet NORMAL Estimate Polychromasia 2+ Poikilocytosis 1+ Sodium Level 137 Potassium Level 5.8 H Chloride Level 96 L Carbon Dioxide 17 L Level Anion Gap 24 H Blood Urea 54 H Nitrogen Creatinine 2.63 H Est Glomerular 25 L Filtrat Rate mL/min Glucose Level 662 *H Hemoglobin A1c 12.1 H Calcium Level 10.1 Phosphorus Level 4.4 Magnesium Level 2.9 H Total Bilirubin 0.5 Direct Bilirubin 0.00 Indirect 0.5 Bilirubin Aspartate Amino 32 Transf (AST/SGOT ) Alanine 37 Aminotransferase (ALT/SGPT) Alkaline 129 H Phosphatase Troponin I < 0.012 Total Protein 8.1 Albumin 4.5 Globulin 3.60 H Albumin/Globulin 1.25 Ratio Lipase 230 Urine Color STRAW Urine Clarity CLEAR Urine pH 5.0 Urine Specific 1.025 [place] Urine Ketones 1+ H Urine Nitrite NEGATIVE Urine Bilirubin NEGATIVE Urine NEGATIVE Urobilinogen Urine Leukocyte NEGATIVE Esterase Urine 1 Microscopic RBC Urine 15 H Microscopic WBC Urine Bacteria FEW A Urine Hemoglobin 2+ H Urine Glucose 3+ H Urine Total NEGATIVE Protein Blood Gas Blood venous Specimen Source Arterial Blood 10/05/2018 3:40: Date Drawn 00 AM Arterial Blood VENOUS LINE Gas Puncture Site Nathan Test N/A Venous Blood pH 7.283 L Venous Blood 31.9 L pCO2 (Temp Corrected) Venous Blood pO2 27.9 (Temp Corrected) Venous Blood 14.8 L HCO3 Venous Blood 51.7 L Oxygen Saturation Venous Blood -10.7 L Base Excess Venous Blood 14.0 Total Hemoglobin Venous Blood 51.3 Oxyhemoglobin Venous Blood 0.2 Methemoglobin Carboxyhemoglobi 0.6 n Blood Gas 37.0 Temperature Blood Gas Actual 18 Respiration Rate Blood Gas ROOM AIR Modality FiO2 21.0 Blood Gas Notified Whom Blood Gas 10/05/2018 3:48: Notified Time 07 AM Bedside Glucose 528 *H Test 10/05/18 05:13 10/05/18 05:26 10/05/18 05:56 10/05/18 06:04 Bedside Glucose 468 *H 453 *H Blood Gas Blood venous Specimen Source Arterial Blood 10/05/2018 5:18: Date Drawn 20 AM Arterial Blood VENOUS LINE Gas Puncture Site Nathan Test N/A Venous Blood pH 7.259 L Venous Blood 35.0 pCO2 (Temp Corrected) Venous Blood pO2 29.1 (Temp Corrected) Venous Blood 15.3 L HCO3 Venous Blood 54.3 L Oxygen Saturation Venous Blood -10.8 L Base Excess Venous Blood 14.2 Total Hemoglobin Venous Blood 53.8 Oxyhemoglobin Venous Blood 0.2 Methemoglobin Carboxyhemoglobi 0.7 n Blood Gas 37.0 Temperature Blood Gas Actual 20 Respiration Rate Blood Gas ROOM AIR Modality FiO2 21.0 Blood Gas Notified Whom Blood Gas 10/05/2018 5:25: Notified Time 56 AM Sodium Level 139 Potassium Level 4.9 Chloride Level 102 Carbon Dioxide 16 L Level Anion Gap 21 H Blood Urea 52 H Nitrogen Creatinine 2.33 H Est Glomerular 29 L Filtrat Rate mL/min Glucose Level 495 #*H Calcium Level 9.3 Phosphorus Level 3.8 Magnesium Level 2.9 H Test 10/05/18 07:16 Bedside Glucose 377 H HPI/ROS Admit Date/Time Admit Date/Time Hx of Present Illness This 57 y.o male with history of environmental allergies, DM type II, overweight , CAD, history of stent complained on generalize body weakness and lightheadedness and poor appetite for 4 days. He has DM for 5 plus years and taking insulin Tujeo 60 q day and Glimepiride religiously. He denied any cough, dysuria, nausea, vomiting or pain. He does not know for sure his medications, denied hypertension. ROS Constitutional: fatigue, poor po ENT: no complaints Respiratory: no complaints Cardiovascular: no complaints Gastrointestinal: no complaints Musculoskeletal: swelling; No no complaints, No back pain, No bone/joint pain, No neck pain, No restricted range of motion, No other PMH/Family/Social Past Medical History Medical History: coronary artery disease, diabetes Medications Current Medications Potassium Chloride/Sodium Chloride 1,000 ml @ 0 mls/hr Q0M IV ; Start 10/05/18 at 03:26 Potassium Chloride/Dextrose/ Sod Cl 1,000 ml @ 0 mls/hr Q0M IV ; Start 10/05/18 at 03:26 Potassium Chloride/Sodium Chloride 1,000 ml @ 0 mls/hr Q0M IV ; Start 10/05/18 at 03:26 Potassium Chloride/Dextrose/ Sod Cl 1,000 ml @ 0 mls/hr Q0M IV ; Start 10/05/18 at 03:26 Sodium Chloride 1,000 ml @ 0 mls/hr Q0M IV Last administered on 10/05/18at 03:51; Admin Dose 250 MLS/HR; Start 10/05/18 at 03:26 Dextrose/Sodium Chloride 1,000 ml @ 0 mls/hr Q0M IV ; Start 10/05/18 at 03:26 Insulin Human Regular 100 unit/ Sodium Chloride 101 ml @ 9.19 mls/hr ER DKA PROTOCOL IV Last administered on 10/05/18at 04:15; Admin Dose 9.19 MLS/HR; Start 10/05/18 at 03:30 Miscellaneous Information (* Miscellaneous Pharmacy Order) HYPOGLYCEMIA TREATMENT HYPOGLYCEM PROTOCOL PRN XX .HYPOGLYCEMIA PROTOCOL; Start 10/05/18 at 03:30 Dextrose (D50w Syringe) 50 ml Q15M PRN IV .DECREASED GLUCOSE; Start 10/05/18 at 03:30 Dextrose (D50w Syringe) 25 ml Q15M PRN IV .DECREASED GLUCOSE; Start 10/05/18 at 03:30 Ondansetron HCl (Zofran Inj) 4 mg Q6H PRN IV NAUSEA AND/OR VOMITING; Start 10/05/18 at 07:00 Albuterol/ Ipratropium (Duoneb) 3 ml Q2H RESP THERAPY PRN NEB SHORTNESS OF BREATH; Start 10/05/18 at 07:00 Acetaminophen (Tylenol Liquid) 650 mg Q6H PRN PO PAIN LEVEL 1-3 OR FEVER; Start 10/05/18 at 07:00 Magnesium Hydroxide (Milk Of Mag) 30 ml DAILY PRN PO CONSTIPATION; Start 10/05/18 at 07:00 Pantoprazole (Protonix Iv) 40 mg DAILY@06 IV ; Start 10/05/18 at 06:45 Enoxaparin Sodium (Lovenox) 40 mg DAILY SC ; Start 10/05/18 at 09:00 Coded Allergies: No Known Allergy (Unverified , 10/05/18) Past Surgical History Past Surgical Hx: angioplasty Family History Significant Family History: other Social History Alcohol Use: none Smoking Status: Never smoker Drug Use: none Exam/Review of Systems Vital Signs Vitals Vital Signs Date Temp Pulse Resp B/P (MAP) Pulse Ox O2 O2 Flow FiO2 Time Delivery Rate 10/05/18 98.3 87 20 114/69 93 Room Air 06:00 (84) Exam Constitutional: alert, oriented Neck: supple Respiratory: clear to auscultation Cardiovascular: regular rate and rhythm Gastrointestinal: soft Genitourinary - Male: CVA tenderness; No nl penis, No nl scrotum, No discharge, No other Musculoskeletal: swelling; No nl extremities to inspection, No nl gait and stance, No joint tenderness, No muscle tone, No muscle weakness, No range of motion, No spine non-tender, No other GILLIAN SALAZAR MD 10/05/18 1501: Assessment/Plan Assessment/Plan Assessment/Plan 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
[2018-10-05] MEDS: ENOXAPARIN 40 MG/0.4 ML SYG SC SCH (09:10)
[2018-10-05] MEDS: CEFTRIAXONE 1 GM/50 ML (PMX) 50 ML IVPB SCH (09:10)
[2018-10-05] MEDS ORDERED: FENO145T37 PO (09:32)
[2018-10-05] MEDS ORDERED: INSU300I SQ (09:32)
[2018-10-05] MEDS ORDERED: SIMV40TA2 PO (09:33)
[2018-10-05] MEDS ORDERED: LISI10TA2 PO (09:33)
[2018-10-05] MEDS ORDERED: DULA1.5P SQ (09:34)
[2018-10-05] MEDS ORDERED: EMPA25TA PO (09:34)
[2018-10-05] MEDS ORDERED: CLOP75TA27 PO (09:35)
[2018-10-05] MEDS ORDERED: TAMS-14 PO (09:35)
[2018-10-05] MEDS ORDERED: EZET10TA31 PO (09:36)
[2018-10-05] MEDS ORDERED: ASPI81TA52 PO (09:36)
[2018-10-05] MEDS ORDERED: AMIT25TA9 PO (09:36)
[2018-10-05] MEDS ORDERED: LORA10TA3 PO (09:36)
[2018-10-05] MEDS ORDERED: MONT10TA24 PO (09:37)
[2018-10-05] MEDS ORDERED: INSULIN GLARGINE [LANTus] (100 UNITS/ML) SYG SC ONE ×2 (13:00→23:00)
[2018-10-05] MEDS: INSULIN ASPART [NOVOLOG] 3 ML PEN SC SCH ×3 (18:24→22:13)
[2018-10-06] MEDS: ACCU-CHEK XX SCH ×3 (02:00→20:56)
[2018-10-06 02:40] VITALS: BP 114/64; PULSE 72; RESP 18
[2018-10-06] MEDS: CEFTRIAXONE 1 GM/50 ML (PMX) 50 ML IVPB SCH (08:11)
[2018-10-06] MEDS: INSULIN ASPART [NOVOLOG] 3 ML PEN SC SCH ×7 (08:14→20:55)
[2018-10-06] MEDS: ENOXAPARIN 40 MG/0.4 ML SYG SC SCH (08:18)
[2018-10-06 08:47] VITALS: BP 120/70; PULSE 67; RESP 18
[2018-10-06] MEDS ORDERED: FAMOTIDINE 20 MG INJ IV SCH (09:00)
[2018-10-06 14:35] VITALS: BP 116/65; PULSE 64; RESP 20
--- NOTE | 2018-10-06 15:45 | PN ---
Date/Time of Note Date/Time of Note DATE: 10/06/18 TIME: 15:42 Assessment/Plan VTE Prophylaxis Risk score (from Ns)>0 risk: 3 SCD applied (from Ns): Yes Pharmacological prophylaxis: NA/contraindicated Pharm contraindication: low risk/ambulating Lines/Catheters IV Catheter Type (from Nrsg): Peripheral IV Urinary Cath still in place: Yes Reason Cath still needed: urinary retention Assessment/Plan Hospital Course Hospital Course 1.DKA, BS is in 450. Chest xray is clear, UA is positive for increased WBC, negative for leucocyte esterase. 2. Hx of DM type II 3. Overweight 4. Hx of CAD with tstatus post PCI on 07/12/2014 to the proximal to mid left anterior descending. by dr Fisher 5. SIRS with WBC 26 ? UTI 6. SUSAN. Cr 2.63> improved with hydraation 7. Hx of Hypertension. 8. Dyslipidemia. 9. Hx of environmental allergies Assessment/Plan - start lantus/mealtime insulin - DM education - repeat CBC - fs Improved - send bld cx and ucx - resume home meds - PT eval - dc pena and evaluate Result Diagram: 10/05/18 0140 10/06/18 1059 Results 24hrs Laboratory Tests Test 10/05/18 15:57 10/05/18 17:40 10/05/18 19:43 10/05/18 21:54 Sodium Level 143 141 Potassium Level 4.8 5.3 H Chloride Level 114 H 110 Carbon Dioxide Level 20 L 18 L Anion Gap 9 13 Blood Urea Nitrogen 41 H 39 H Creatinine 1.77 H 1.64 H Est Glomerular 40 L 43 L Filtrat Rate mL/min Glucose Level 186 367 #H Calcium Level 8.9 8.8 Phosphorus Level 2.4 L 2.3 L Magnesium Level 2.9 H 2.6 H Bedside Glucose 218 375 H Test 10/05/18 22:51 10/06/18 02:41 10/06/18 03:31 10/06/18 07:22 Sodium Level 142 141 140 Potassium Level 5.1 4.7 4.8 Chloride Level 109 112 H 107 Carbon Dioxide Level 19 L 19 L 20 L Anion Gap 14 H 10 13 Blood Urea Nitrogen 39 H 35 H 33 H Creatinine 1.66 H 1.53 H 1.52 H Est Glomerular 43 L 47 L 47 L Filtrat Rate mL/min Glucose Level 355 H 250 #H 234 H Calcium Level 8.9 9.3 8.9 Phosphorus Level 2.5 2.6 2.7 Magnesium Level 2.7 H 2.7 H 2.5 Bedside Glucose 226 H Triglycerides Level 224 H Cholesterol Level 107 LDL Cholesterol, 44 Calculated HDL Cholesterol 18 L Cholesterol/HDL 5.9 Ratio Test 10/06/18 08:00 10/06/18 10:59 10/06/18 12:25 Bedside Glucose 210 230 H Sodium Level 140 Potassium Level 4.9 Chloride Level 109 Carbon Dioxide Level 18 L Anion Gap 13 Blood Urea Nitrogen 34 H Creatinine 1.35 H Est Glomerular 54 L Filtrat Rate mL/min Glucose Level 246 H Calcium Level 9.2 Phosphorus Level 2.9 Magnesium Level 2.5 Subjective 24 Hr Interval Summary Free Text/Dictation pt feels tired, weak Exam/Review of Systems Exam Vitals Vital Signs Date Temp Pulse Resp B/P (MAP) Pulse Ox O2 O2 Flow FiO2 Time Delivery Rate 10/06/18 98.4 64 20 116/65 95 14:35 (82) 10/05/18 Room Air 22:00 10/05/18 2.0 18:00 Intake and Output 10/05/18 10/05/18 10/06/18 1414:59 22:59 06:59 IntakeIntake Total 100 ml 240 ml OutputOutput Total 690 ml BalanceBalance -590 ml 240 ml Exam onstitutional: alert, oriented Neck: supple Respiratory: clear to auscultation Cardiovascular: regular rate and rhythm Gastrointestinal: soft Genitourinary - Male: CVA tenderness; No nl penis, No nl scrotum, No discharge, No other Musculoskeletal: swelling; No nl extremities to inspection, No nl gait and stance, No joint tenderness, No muscle tone, No muscle weakness, No range of motion, No spine non-tender, No other GILLIAN SALAZAR MD 10/05/18 1501: Results Results 24hrs Laboratory Tests Test 10/05/18 15:57 10/05/18 17:40 10/05/18 19:43 10/05/18 21:54 Sodium Level 143 141 Potassium Level 4.8 5.3 H Chloride Level 114 H 110 Carbon Dioxide Level 20 L 18 L Anion Gap 9 13 Blood Urea Nitrogen 41 H 39 H Creatinine 1.77 H 1.64 H Est Glomerular 40 L 43 L Filtrat Rate mL/min Glucose Level 186 367 #H Calcium Level 8.9 8.8 Phosphorus Level 2.4 L 2.3 L Magnesium Level 2.9 H 2.6 H Bedside Glucose 218 375 H Test 10/05/18 22:51 10/06/18 02:41 10/06/18 03:31 10/06/18 07:22 Sodium Level 142 141 140 Potassium Level 5.1 4.7 4.8 Chloride Level 109 112 H 107 Carbon Dioxide Level 19 L 19 L 20 L Anion Gap 14 H 10 13 Blood Urea Nitrogen 39 H 35 H 33 H Creatinine 1.66 H 1.53 H 1.52 H Est Glomerular 43 L 47 L 47 L Filtrat Rate mL/min Glucose Level 355 H 250 #H 234 H Calcium Level 8.9 9.3 8.9 Phosphorus Level 2.5 2.6 2.7 Magnesium Level 2.7 H 2.7 H 2.5 Bedside Glucose 226 H Triglycerides Level 224 H Cholesterol Level 107 LDL Cholesterol, 44 Calculated HDL Cholesterol 18 L Cholesterol/HDL 5.9 Ratio Test 10/06/18 08:00 10/06/18 10:59 10/06/18 12:25 Bedside Glucose 210 230 H Sodium Level 140 Potassium Level 4.9 Chloride Level 109 Carbon Dioxide Level 18 L Anion Gap 13 Blood Urea Nitrogen 34 H Creatinine 1.35 H Est Glomerular 54 L Filtrat Rate mL/min Glucose Level 246 H Calcium Level 9.2 Phosphorus Level 2.9 Magnesium Level 2.5 Medications Medication Current Medications Ondansetron HCl (Zofran Inj) 4 mg Q6H PRN IV NAUSEA AND/OR VOMITING; Start 10/05/18 at 07:00 Albuterol/ Ipratropium (Duoneb) 3 ml Q2H RESP THERAPY PRN NEB SHORTNESS OF BREATH; Start 10/05/18 at 07:00 Acetaminophen (Tylenol Liquid) 650 mg Q6H PRN PO PAIN LEVEL 1-3 OR FEVER Last a dministered on 10/05/18at 22:20; Admin Dose 650 MG; Start 10/05/18 at 07:00 Magnesium Hydroxide (Milk Of Mag) 30 ml DAILY PRN PO CONSTIPATION; Start 10/05/18 at 07:00 Enoxaparin Sodium (Lovenox) 40 mg DAILY SC Last administered on 10/06/18at 08:18; Admin Dose 40 MG; Start 10/05/18 at 09:00 Ceftriaxone Sodium 50 ml @ 100 mls/hr DAILY IVPB Last administered on 10/06/18at 08:11; Admin Dose 100 MLS/HR; Start 10/05/18 at 09:00 Diagnostic Test (Pha) (Accu-Chek) 1 ea 02 XX ; Start 10/06/18 at 02:00 Insulin Aspart (Novolog Insulin Pen) NOVOLOG *MILD* ALGORITHM WITH MEALS BEDTIME SC Last administered on 10/06/18at 12:50; Admin Dose 3 UNIT; Start 10/05/18 at 17:35 Famotidine (Pepcid Iv) 20 mg DAILY IV Last administered on 10/06/18at 08:10; Admin Dose 20 MG; Start 10/06/18 at 09:00 Insulin Aspart (Novolog Insulin Pen) 8 unit WITH MEALS SC ; Start 10/06/18 at 17:35 Insulin Glargine (Lantus) 25 units DAILY@2000 SC ; Start 10/06/18 at 20:00 Amitriptyline HCl (Elavil) 25 mg QHS PO ; Start 10/06/18 at 21:00; Status UNV Aspirin (Halfprin) 81 mg DAILY PO ; Start 10/06/18 at 16:00; Status UNV Clopidogrel Bisulfate (plaVIX) 75 mg DAILY PO ; Start 10/06/18 at 16:00; Status UNV EZETIMIBE (Zetia) 10 mg DAILY PO ; Start 10/06/18 at 16:00; Status UNV Fenofibrate (Tricor) 145 mg DAILY PO ; Start 10/06/18 at 16:00; Status UNV Lisinopril (Zestril) 10 mg DAILY PO ; Start 10/06/18 at 16:00; Status UNV Loratadine (Claritin) 10 mg DAILY PO ; Start 10/06/18 at 16:00; Status UNV Montelukast Sodium (Singulair) 10 mg QHS PO ; Start 10/06/18 at 21:00; Status UNV Tamsulosin HCl (Flomax) 0.4 mg DAILY PO ; Start 10/07/18 at 09:00; Status UNV Miscellaneous Information 1 ea NOTE XX ; Start 10/06/18 at 16:00 Glucose (Glutose) 15 gm Q15M PRN PO DECREASED GLUCOSE; Start 10/06/18 at 16:00 Glucose (Glutose) 22.5 gm Q15M PRN PO DECREASED GLUCOSE; Start 10/06/18 at 16:00 Dextrose (D50w Syringe) 25 ml Q15M PRN IV DECREASED GLUCOSE; Start 10/06/18 at 16:00 Dextrose (D50w Syringe) 50 ml Q15M PRN IV DECREASED GLUCOSE; Start 10/06/18 at 16:00 Glucagon (Glucagen) 1 mg Q15M PRN IM DECREASED GLUCOSE; Start 10/06/18 at 16:00 Glucose (Glutose) 15 gm Q15M PRN BUCCAL DECREASED GLUCOSE; Start 10/06/18 at 16:00 GILLIAN SALAZAR MD Oct 06, 2018 15:45
[2018-10-06] MEDS ORDERED: GLUCAGON 1 MG INJ IM PRN (16:00)
[2018-10-06] MEDS ORDERED: DEXTROSE 50% 50 ML SYRINGE IV PRN ×2 (16:00)
[2018-10-06] MEDS ORDERED: GLUCOSE GEL 15 GRAM TUBE PO PRN ×2 (16:00)
[2018-10-06] MEDS ORDERED: GLUCOSE GEL 15 GRAM TUBE BUCCAL PRN (16:00)
[2018-10-06] MEDS: EZETIMIBE 10 MG TAB PO SCH (17:42)
[2018-10-06] MEDS: FENOFIBRATE 145 MG TAB PO SCH (17:42)
[2018-10-06] MEDS: LORATADINE 10 MG TAB PO SCH (17:42)
[2018-10-06] MEDS: ASPIRIN (EC) 81 MG TAB PO SCH (17:42)
[2018-10-06] MEDS: LISINOPRIL 10 MG TAB PO SCH (17:42)
[2018-10-06] MEDS: CLOPIDOGREL 75 MG TAB PO SCH (17:43)
[2018-10-06 19:40] VITALS: BP 116/58; PULSE 68; RESP 18
[2018-10-06] MEDS ORDERED: INSULIN GLARGINE [LANTus] (100 UNITS/ML) SYG SC SCH (20:00)
[2018-10-06] MEDS: MONTELUKAST 10 MG TAB PO SCH (20:54)
[2018-10-06] MEDS ORDERED: AMITRIPTYLINE 25 MG TAB PO SCH (21:00)
[2018-10-07 01:05] VITALS: BP 118/64; PULSE 65; RESP 18
[2018-10-07] MEDS: ACCU-CHEK XX SCH ×5 (02:00→20:42)
[2018-10-07 07:55] VITALS: BP 125/75; PULSE 64; RESP 16
[2018-10-07] MEDS: ASPIRIN (EC) 81 MG TAB PO SCH (08:24)
[2018-10-07] MEDS: CLOPIDOGREL 75 MG TAB PO SCH (08:24)
[2018-10-07] MEDS: LORATADINE 10 MG TAB PO SCH (08:24)
[2018-10-07] MEDS: FENOFIBRATE 145 MG TAB PO SCH (08:24)
[2018-10-07] MEDS: EZETIMIBE 10 MG TAB PO SCH (08:24)
[2018-10-07] MEDS: ENOXAPARIN 40 MG/0.4 ML SYG SC SCH (08:24)
[2018-10-07] MEDS: LINAGLIPTIN 5 MG TABLET PO SCH (08:25)
[2018-10-07] MEDS: LISINOPRIL 10 MG TAB PO SCH (08:25)
[2018-10-07] MEDS: INSULIN ASPART [NOVOLOG] 3 ML PEN SC SCH ×7 (08:26→20:32)
[2018-10-07] MEDS ORDERED: FAMOTIDINE 20 MG TAB PO SCH (09:00)
[2018-10-07] MEDS: CEFTRIAXONE 1 GM/50 ML (PMX) 50 ML IVPB SCH (09:38)
[2018-10-07] MEDS: MAGNESIUM HYDROXIDE 30ML CUP PO PRN (09:41)
--- NOTE | 2018-10-07 12:19 | PN ---
Date/Time of Note Date/Time of Note DATE: 10/07/18 TIME: 12:19 Assessment/Plan VTE Prophylaxis Risk score (from Ns)>0 risk: 4 SCD applied (from [facility] [place]): Yes Pharmacological prophylaxis: NA/contraindicated Pharm contraindication: low risk/ambulating Lines/Catheters IV C[facility]ter Type (from [facility] [place] Lock Urinary Cath still in place: Yes Reason Cath still needed: urinary retention Assessment/Plan Hospital Course Hospital Course 1.DKA, BS is in 450. Chest xray is clear, UA is positive for increased WBC, negative for leucocyte esterase. 2. Hx of DM type II 3. Overweight 4. Hx of CAD with tstatus post PCI on 07/12/2014 to the proximal to mid left anterior descending. by dr Fisher 5. SIRS with WBC 26 ? UTI 6. SUSAN. Cr 2.63> improved with hydraation/? Obstruction with BPH 7. Hx of Hypertension. 8. Dyslipidemia. 9. Hx of environmental allergies Assessment/Plan -Increase lantus to 35 unit and cw mealtime - resume home meds> we will call pharmacy - Dr Olson consult> straight cath> might need pena at home - cw Floma - DM education - repeat CBC is improved - cx pending so far - resume home meds - PT eval Result Diagram: 10/07/18 0510 10/07/18 0510 Results 24hrs Laboratory Tests Test 10/06/18 12:25 10/06/18 15:55 10/06/18 17:31 10/06/18 19:52 Bedside Glucose 230 H 180 White Blood Count 13.7 #H Red Blood Count 4.55 L Hemoglobin 13.6 L Hematocrit 39.5 L Mean Corpuscular 86.8 Volume Mean Corpuscular 29.9 Hemoglobin Mean Corpuscular 34.4 Hemoglobin Concent Red Cell 12.4 Distribution Width Platelet Count 261 Mean Platelet Volume 10.8 H Immature 2.000 H Granulocytes % Neutrophils % 72.5 Lymphocytes % 12.9 L Monocytes % 9.7 Eosinophils % 2.2 Basophils % 0.7 Nucleated Red Blood 0.0 Cells % Immature 0.270 H Granulocytes # Neutrophils # 9.9 H Lymphocytes # 1.8 Monocytes # 1.3 H Eosinophils # 0.3 Basophils # 0.1 Nucleated Red Blood 0.0 Cells # Sodium Level 138 138 Potassium Level 4.6 4.5 Chloride Level 106 107 Carbon Dioxide Level 17 L 20 L Anion Gap 15 H 11 Blood Urea Nitrogen 31 H 32 H Creatinine 1.35 H 1.33 H Est Glomerular 54 L 55 L Filtrat Rate mL/min Glucose Level 217 246 H Calcium Level 8.9 8.7 Phosphorus Level 3.0 3.2 Magnesium Level 2.4 2.2 Test 10/06/18 20:49 10/06/18 23:41 10/07/18 02:40 10/07/18 05:10 Bedside Glucose 215 174 Sodium Level 139 140 Potassium Level 4.5 4.5 Chloride Level 107 108 Carbon Dioxide Level 21 19 L Anion Gap 11 13 Blood Urea Nitrogen 31 H 29 H Creatinine 1.29 H 1.27 H Est Glomerular 57 L 58 L Filtrat Rate mL/min Glucose Level 202 225 H Calcium Level 8.9 9.4 Phosphorus Level 3.1 3.0 Magnesium Level 2.2 2.1 White Blood Count 10.6 # Red Blood Count 4.71 Hemoglobin 14.0 Hematocrit 40.4 L Mean Corpuscular 85.8 Volume Mean Corpuscular 29.7 Hemoglobin Mean Corpuscular 34.7 Hemoglobin Concent Red Cell 12.2 Distribution Width Platelet Count 271 Mean Platelet Volume 10.8 H Immature 4.800 H Granulocytes % Neutrophils % 62.9 Lymphocytes % 15.8 Monocytes % 11.4 H Eosinophils % 3.8 Basophils % 1.3 Nucleated Red Blood 0.0 Cells % Immature 0.510 H Granulocytes # Neutrophils # 6.7 Lymphocytes # 1.7 Monocytes # 1.2 H Eosinophils # 0.4 Basophils # 0.1 Nucleated Red Blood 0.0 Cells # Test 10/07/18 08:20 10/07/18 12:05 Bedside Glucose 209 262 H Subjective 24 Hr Interval Summary Free Text/Dictation High PVR Sugars still high asking for home meds burping Exam/Review of Systems Exam Vitals Vital Signs Date Temp Pulse Resp B/P (MAP) Pulse Ox O2 O2 Flow FiO2 Time Delivery Rate 10/07/18 98.8 64 16 125/75 96 07:55 (92) 10/05/18 Room Air 22:00 10/05/18 2.0 18:00 Intake and Output 10/06/18 10/06/18 10/07/18 1515:00 23:00 07:00 IntakeIntake Total 530 ml 120 ml OutputOutput Total 1300 ml 800 ml BalanceBalance -770 ml -680 ml Exam xam onstitutional: alert, oriented Neck: supple Respiratory: clear to auscultation Cardiovascular: regular rate and rhythm Gastrointestinal: soft Genitourinary - Male: CVA tenderness; No nl penis, No nl scrotum, No discharge, No other Musculoskeletal: swelling; No nl extremities to inspection, No nl gait and stance, No joint tenderness, No muscle tone, No muscle weakness, No range of motion, No spine non-tender, No other Results Results 24hrs Laboratory Tests Test 10/06/18 12:25 10/06/18 15:55 10/06/18 17:31 10/06/18 19:52 Bedside Glucose 230 H 180 White Blood Count 13.7 #H Red Blood Count 4.55 L Hemoglobin 13.6 L Hematocrit 39.5 L Mean Corpuscular 86.8 Volume Mean Corpuscular 29.9 Hemoglobin Mean Corpuscular 34.4 Hemoglobin Concent Red Cell 12.4 Distribution Width Platelet Count 261 Mean Platelet Volume 10.8 H Immature 2.000 H Granulocytes % Neutrophils % 72.5 Lymphocytes % 12.9 L Monocytes % 9.7 Eosinophils % 2.2 Basophils % 0.7 Nucleated Red Blood 0.0 Cells % Immature 0.270 H Granulocytes # Neutrophils # 9.9 H Lymphocytes # 1.8 Monocytes # 1.3 H Eosinophils # 0.3 Basophils # 0.1 Nucleated Red Blood 0.0 Cells # Sodium Level 138 138 Potassium Level 4.6 4.5 Chloride Level 106 107 Carbon Dioxide Level 17 L 20 L Anion Gap 15 H 11 Blood Urea Nitrogen 31 H 32 H Creatinine 1.35 H 1.33 H Est Glomerular 54 L 55 L Filtrat Rate mL/min Glucose Level 217 246 H Calcium Level 8.9 8.7 Phosphorus Level 3.0 3.2 Magnesium Level 2.4 2.2 Test 10/06/18 20:49 10/06/18 23:41 10/07/18 02:40 10/07/18 05:10 Bedside Glucose 215 174 Sodium Level 139 140 Potassium Level 4.5 4.5 Chloride Level 107 108 Carbon Dioxide Level 21 19 L Anion Gap 11 13 Blood Urea Nitrogen 31 H 29 H Creatinine 1.29 H 1.27 H Est Glomerular 57 L 58 L Filtrat Rate mL/min Glucose Level 202 225 H Calcium Level 8.9 9.4 Phosphorus Level 3.1 3.0 Magnesium Level 2.2 2.1 White Blood Count 10.6 # Red Blood Count 4.71 Hemoglobin 14.0 Hematocrit 40.4 L Mean Corpuscular 85.8 Volume Mean Corpuscular 29.7 Hemoglobin Mean Corpuscular 34.7 Hemoglobin Concent Red Cell 12.2 Distribution Width Platelet Count 271 Mean Platelet Volume 10.8 H Immature 4.800 H Granulocytes % Neutrophils % 62.9 Lymphocytes % 15.8 Monocytes % 11.4 H Eosinophils % 3.8 Basophils % 1.3 Nucleated Red Blood 0.0 Cells % Immature 0.510 H Granulocytes # Neutrophils # 6.7 Lymphocytes # 1.7 Monocytes # 1.2 H Eosinophils # 0.4 Basophils # 0.1 Nucleated Red Blood 0.0 Cells # Test 10/07/18 08:20 10/07/18 12:05 Bedside Glucose 209 262 H Medications Medication Current Medications Ondansetron HCl (Zofran Inj) 4 mg Q6H PRN IV NAUSEA AND/OR VOMITING; Start 10/05/18 at 07:00 Albuterol/ Ipratropium (Duoneb) 3 ml Q2H RESP THERAPY PRN NEB SHORTNESS OF RHONDA TH; Start 10/05/18 at 07:00 Acetaminophen (Tylenol Liquid) 650 mg Q6H PRN PO PAIN LEVEL 1-3 OR FEVER Last administered on 10/05/18at 22:20; Admin Dose 650 MG; Start 10/05/18 at 07:00 Magnesium Hydroxide (Milk Of Mag) 30 ml DAILY PRN PO CONSTIPATION Last administered on 10/07/18at 09:41; Admin Dose 30 ML; Start 10/05/18 at 07:00 Enoxaparin Sodium (Lovenox) 40 mg DAILY SC Last administered on 10/07/18 08:24; Admin Dose 40 MG; Start 10/05/18 at 09:00 Ceftriaxone Sodium 50 ml @ 100 mls/hr DAILY IVPB Last administered on 10/07/18 09:38; Admin Dose 100 MLS/HR; Start 10/05/18 at 09:00 Diagnostic Test (Pha) (Accu-Chek) 1 ea 02 XX ; Start 10/06/18 at 02:00 Insulin Aspart (Novolog Insulin Pen) NOVOLOG *MILD* ALGORITHM WITH MEALS BEDTIME SC Last administered on 10/07/18at 08:27; Admin Dose 2 UNIT; Start 10/05/18 at 17:35 Insulin Aspart (Novolog Insulin Pen) 8 unit WITH MEALS SC Last administered on 10/07/18 08:26; Admin Dose 8 UNIT; Start 10/06/18 at 17:35 Insulin Glargine (Lantus) 25 units DAILY@2000 SC Last administered on 10/06/18 20:54; Admin Dose 25 UNITS; Start 10/06/18 at 20:00 Amitriptyline HCl (Elavil) 25 mg QHS PO Last administered on 10/06/18 20:54; Admin Dose 25 MG; Start 10/06/18 at 21:00 Aspirin (Halfprin) 81 mg DAILY PO Last administered on 10/07/18 08:24; Admin Dose 81 MG; Start 10/06/18 at 16:00 Clopidogrel Bisulfate (plaVIX) 75 mg DAILY PO Last administered on 10/07/18 08:24; Admin Dose 75 MG; Start 10/06/18 at 16:00 EZETIMIBE (Zetia) 10 mg DAILY PO Last administered on 10/07/18 08:24; Admin Dose 10 MG; Start 10/06/18 at 16:00 Fenofibrate (Tricor) 145 mg DAILY PO Last administered on 10/07/18 08:24; Admin Dose 145 MG; Start 10/06/18 at 16:00 Lisinopril (Zestril) 10 mg DAILY PO Last administered on 10/07/18 08:25; Admin Dose 10 MG; Start 10/06/18 at 16:00 Loratadine (Claritin) 10 mg DAILY PO Last administered on 10/07/18 08:24; Admin Dose 10 MG; Start 10/06/18 at 16:00 Montelukast Sodium (Singulair) 10 mg QHS PO Last administered on 10/06/18 20:54; Admin Dose 10 MG; Start 10/06/18 at 21:00 Tamsulosin HCl (Flomax) 0.4 mg DAILY@2100 PO ; Start 10/07/18 at 21:00 Miscellaneous Information 1 ea NOTE XX ; Start 10/06/18 at 16:00 Glucose (Glutose) 15 gm Q15M PRN PO DECREASED GLUCOSE; Start 10/06/18 at 16:00 Glucose (Glutose) 22.5 gm Q15M PRN PO DECREASED GLUCOSE; Start 10/06/18 at 16:00 Dextrose (D50w Syringe) 25 ml Q15M PRN IV DECREASED GLUCOSE; Start 10/06/18 at 16:00 Dextrose (D50w Syringe) 50 ml Q15M PRN IV DECREASED GLUCOSE; Start 10/06/18 at 16:00 Glucagon (Glucagen) 1 mg Q15M PRN IM DECREASED GLUCOSE; Start 10/06/18 at 16:00 Glucose (Glutose) 15 gm Q15M PRN BUCCAL DECREASED GLUCOSE; Start 10/06/18 at 16:00 Linagliptin (Tradjenta) 5 mg DAILY PO Last administered on 10/07/18at 08:25; Admin Dose 5 MG; Start 10/07/18 at 09:00 Diagnostic Test (Pha) (Accu-Chek) 1 ea AC MEALS AND BEDTIME XX ; Start 10/06/18 at 17:35 Famotidine (Pepcid) 20 mg DAILY PO Last administered on 10/07/18at 08:25; Admin Dose 20 MG; Start 10/07/18 at 09:00 GILLIAN SALAZAR MD Oct 07, 2018 12:19
[2018-10-07] MEDS ORDERED: ACCU-CHEK XX ONE (12:30)
[2018-10-07] MEDS ORDERED: INSULIN ASPART [NOVOLOG] 3 ML PEN SC ONE (12:30)
[2018-10-07] MEDS ORDERED: POLYETHYLENE GLYCOL 17 GM PACKET PO PRN (13:30)
[2018-10-07] MEDS ORDERED: BISACODYL 10 MG SUPP PR PRN (13:30)
[2018-10-07] MEDS ORDERED: DOCUSATE SODIUM 100 MG CAP PO PRN (13:30)
--- NOTE | 2018-10-07 13:30 | CONS ---
Assessment/Plan Assessment/Plan Hospital Course (Demo Recall) 57-year-old male with history of diabetes mellitus type 2, coronary artery disease status post stent placement complained of generalize body weakness and lightheadedness and poor appetite for 4 days prior to admission. He reports having nocturia 2-3 times and bedwetting once a week. He occasionally does have urinary urgency or urgency incontinence. He denies any hematuria and there is no history of dysuria. He does have urinary frequency during the day. He does urinate every 1 hour. He was seen by Dr. Maldonado and it appears he had a cystoscopy and he is not sure of the findings. He was told that "he may need to have a catheter". He is on amitriptyline 25 mg at bedtime daily and that may be contributing to additional bladder relaxation and increasing the postvoid residual. The p rostate is mildly enlarged on the rectal exam but not enough to cause his symptoms. Impression: High postvoid residual most likely related to neurogenic diabetic bladder. Also effect of medications such as the amitriptyline. Plan: Check his PSA: Pelvic ultrasound: Discontinue the amitriptyline, check the volume of each voiding and the postvoid residual and do in and out cath for a postvoid residual of 300 mL or more. Consultation Date/Type/Reason Admit Date/Time October 05, 2018 Date of Consultation: Oct 07, 2018 Type of Consult Urology Reason for Consultation Urinary retention/high postvoid residual Requesting Provider: GILLIAN SALAZAR MD Date/Time of Note DATE: 10/07/18 TIME: 13:18 Hx of Present Illness 57-year-old male with history of diabetes mellitus type 2, coronary artery disease status post stent placement complained of generalize body weakness and lightheadedness and poor appetite for 4 days prior to admission. He reports having nocturia 2-3 times and bedwetting once a week. He occasionally does have urinary urgency or urgency incontinence. He denies any hematuria and there is no history of dysuria. He does have urinary frequency during the day. He does urinate every 1 hour. He was seen by Dr. Maldonado and it appears he had a cystoscopy and he is not sure of the findings. He was told that "he may need to have a catheter". Constitutional: other (Generalized weakness) Eyes: no complaints ENT: no complaints Respiratory: No shortness of breath Cardiovascular: other (History of coronary stent); No chest pain Gastrointestinal: no complaints; No nausea, No vomiting Genitourinary: other (As per history of present illness); No dysuria Musculoskeletal: no complaints Skin: no complaints Neurologic: no complaints Endocrine: polyuria Past Medical History Medical History: coronary artery disease, diabetes, high cholesterol Home Meds Reported Medications Montelukast Sodium* (Montelukast Sodium*) 10 Mg Tablet, 10 MG PO QHS, #30 TAB 10/05/18 Ezetimibe* (Zetia*) 10 Mg Tablet, 10 MG PO DAILY, TAB 10/05/18 Aspirin (Low Dose Aspirin) 81 Mg Tablet.dr, 81 MG PO DAILY, #30 TAB 10/05/18 Loratadine* (Loratadine*) 10 Mg Tablet, 10 MG PO DAILY, #30 TAB 10/05/18 Amitriptyline Hcl* (Amitriptyline Hcl*) 25 Mg Tablet, 25 MG PO QHS, #30 TAB 10/05/18 Tamsulosin Hcl* (Flomax*) 0.4 Mg Cap.er.24h, 0.4 MG PO DAILY, CAP 10/05/18 Clopidogrel Bisulfate (Clopidogrel) 75 Mg Tablet, 75 MG PO DAILY, #30 TAB 10/05/18 Empagliflozin (Jardiance) 25 Mg Tablet, 25 MG PO DAILY, TAB 10/05/18 Dulaglutide (Trulicity) 1.5 Mg/0.5 Ml Pen.injctr, 1.5 MG SQ EVERY Saturday10/05/18 Simvastatin* (Zocor*) 40 Mg Tablet, 40 MG PO QHS, #30 TAB 10/05/18 Lisinopril* (Lisinopril*) 10 Mg Tablet, 10 MG PO DAILY, #30 TAB 10/05/18 Fenofibrate Nanocrystallized* (Fenofibrate*) 145 Mg Tablet, 145 MG PO DAILY, TAB 10/05/18 Insulin Glargine,Hum.rec.anlog (Tata Farias) 300 Unit/1 Ml Insuln.pen, 60 UNIT SQ QAM, EA 10/05/18 Discontinued Reported Medications Dapagliflozin Propanediol (Farxiga) 10 Mg Tablet, 10 MG PO QAM, #30 TAB 08/03/16 Hydrochlorothiazide* (Hydrochlorothiazide*) 25 Mg Tab, 25 MG PO DAILY, #30 TAB 08/03/16 Fenofibrate Nanocrystallized* (Fenofibrate*) 145 Mg Tablet, 145 MG PO DAILY, TAB 08/03/16 Sitagliptin Phos/Metformin HCl (Janumet 50-1,000 mg Tablet) 1 Each Tablet, 1 TAB PO BID, TAB 08/03/16 Insulin Glargine,Hum.rec.anlog (Tata Duckworthyolettemohini) 300 Unit/1 Ml Insuln.pen, 55 UNIT SQ DAILY 08/03/16 Lisinopril* (Lisinopril*) 10 Mg Tablet, 10 MG PO DAILY, TAB 07/12/14 Glimepiride* (Glimepiride*) 4 Mg Tablet, 4 MG PO BID, TAB 07/12/14 Simvastatin (Simvastatin) 40 Mg Tablet, 40 MG PO HS, TAB 07/12/14 Discontinued Scripts Doxycycline Monohydrate* (Doxycycline Monohydrate*) 100 Mg Tablet, 100 MG PO BID for 10 Days, TAB Prov:MARIO MONTES MD 08/09/16 Silver Sulfadiazine (THERMAZENE 1% 25 GM) 1 Applic Cr, 1 APPLIC TOP DAILY for 28 Days Prov:MARIO MONTES MD 08/09/16 Clopidogrel Bisulfate (Clopidogrel) 75 Mg Tablet, 75 MG PO DAILY, #30 TAB Prov:ROB TAYLOR NP 09/07/14 Aspirin* (Aspirin* EC) 81 Mg Tablet.dr, 81 MG PO DAILY, #30 TAB Prov:ROB TAYLOR NP 09/07/14 Medications Current Medications Ondansetron HCl (Zofran Inj) 4 mg Q6H PRN IV NAUSEA AND/OR VOMITING; Start 10/05/18 at 07:00 Albuterol/ Ipratropium (Duoneb) 3 ml Q2H RESP THERAPY PRN NEB SHORTNESS OF BREATH; Start 10/05/18 at 07:00 Acetaminophen (Tylenol Liquid) 650 mg Q6H PRN PO PAIN LEVEL 1-3 OR FEVER Last administered on 10/05/18at 22:20; Admin Dose 650 MG; Start 10/05/18 at 07:00 Magnesium Hydroxide (Milk Of Mag) 30 ml DAILY PRN PO CONSTIPATION Last administered on 10/07/18at 09:41; Admin Dose 30 ML; Start 10/05/18 at 07:00 Enoxaparin Sodium (Lovenox) 40 mg DAILY SC Last administered on 10/07/18 08:24; Admin Dose 40 MG; Start 10/05/18 at 09:00 Ceftriaxone Sodium 50 ml @ 100 mls/hr DAILY IVPB Last administered on 10/07/18 09:38; Admin Dose 100 MLS/HR; Start 10/05/18 at 09:00 Diagnostic Test (Pha) (Accu-Chek) 1 ea 02 XX ; Start 10/06/18 at 02:00 Insulin Aspart (Novolog Insulin Pen) NOVOLOG *MILD* ALGORITHM WITH MEALS BEDTIME SC Last administered on 10/07/18 08:27; Admin Dose 2 UNIT; Start 10/05/18 at 17:35 Insulin Aspart (Novolog Insulin Pen) 8 unit WITH MEALS SC Last administered on 10/07/18 12:38; Admin Dose 8 UNIT; Start 10/06/18 at 17:35 Amitriptyline HCl (Elavil) 25 mg QHS PO Last administered on 10/06/18 20:54; Admin Dose 25 MG; Start 10/06/18 at 21:00 Aspirin (Halfprin) 81 mg DAILY PO Last administered on 10/07/18 08:24; Admin Dose 81 MG; Start 10/06/18 at 16:00 Clopidogrel Bisulfate (plaVIX) 75 mg DAILY PO Last administered on 10/07/18 08:24; Admin Dose 75 MG; Start 10/06/18 at 16:00 EZETIMIBE (Zetia) 10 mg DAILY PO Last administered on 10/07/18 08:24; Admin Dose 10 MG; Start 10/06/18 at 16:00 Fenofibrate (Tricor) 145 mg DAILY PO Last administered on 10/07/18 08:24; Admin Dose 145 MG; Start 10/06/18 at 16:00 Lisinopril (Zestril) 10 mg DAILY PO Last administered on 10/07/18 08:25; Admin Dose 10 MG; Start 10/06/18 at 16:00 Loratadine (Claritin) 10 mg DAILY PO Last administered on 10/07/18 08:24; Admin Dose 10 MG; Start 10/06/18 at 16:00 Montelukast Sodium (Singulair) 10 mg QHS PO Last administered on 4/22/19at 20:54; Admin Dose 10 MG; Start 10/06/18 at 21:00 Tamsulosin HCl (Flomax) 0.4 mg DAILY@2100 PO ; Start 10/07/18 at 21:00 Miscellaneous Information 1 ea NOTE XX ; Start 10/06/18 at 16:00 Glucose (Glutose) 15 gm Q15M PRN PO DECREASED GLUCOSE; Start 10/06/18 at 16:00 Glucose (Glutose) 22.5 gm Q15M PRN PO DECREASED GLUCOSE; Start 10/06/18 at 16:00 Dextrose (D50w Syringe) 25 ml Q15M PRN IV DECREASED GLUCOSE; Start 10/06/18 at 16:00 Dextrose (D50w Syringe) 50 ml Q15M PRN IV DECREASED GLUCOSE; Start 10/06/18 at 16:00 Glucagon (Glucagen) 1 mg Q15M PRN IM DECREASED GLUCOSE; Start 10/06/18 at 16:00 Glucose (Glutose) 15 gm Q15M PRN BUCCAL DECREASED GLUCOSE; Start 10/06/18 at 16:00 Linagliptin (Tradjenta) 5 mg DAILY PO Last administered on 10/07/18at 08:25; Admin Dose 5 MG; Start 10/07/18 at 09:00 Diagnostic Test (Pha) (Accu-Chek) 1 ea AC MEALS AND BEDTIME XX ; Start 10/06/18 at 17:35 Famotidine (Pepcid) 20 mg DAILY PO Last administered on 10/07/18at 08:25; Admin Dose 20 MG; Start 10/07/18 at 09:00 Insulin Glargine (Lantus) 35 units DAILY@2000 SC ; Start 10/07/18 at 20:00 Allergies: Coded Allergies: No Known Allergy (Unverified , 10/05/18) Past Surgical History Past Surgical Hx: angioplasty (Coronary) Social History Alcohol Use: none Smoking Status: Former smoker Drug Use: none Exam/Review of Systems Exam Vitals Vital Signs Date Temp Pulse Resp B/P (MAP) Pulse Ox O2 O2 Flow FiO2 Time Delivery Rate 10/07/18 98.8 64 16 125/75 96 07:55 (92) 10/05/18 Room Air 22:00 10/05/18 2.0 18:00 Intake and Output 10/06/18 10/06/18 10/07/18 1414:59 22:59 06:59 IntakeIntake Total 530 ml 120 ml OutputOutput Total 1300 ml 800 ml BalanceBalance -770 ml -680 ml Constitutional: alert Psych: no complaints Head: normocephalic Eyes: nl conjunctiva ENMT: nl external ears & nose Neck: supple, non-tender Respiratory: normal air movement; No wheezing Cardiovascular: regular rate and rhythm; No jugular venous distention (JVD) Gastrointestinal: soft; No mass Genitourinary - Male: nl penis, nl scrotum, other (Rectal exam prostate is mildly enlarged ) Musculoskeletal: nl extremities to inspection Extremities: No calf tenderness Neurological: nl mental status Skin: nl turgor Results Result Diagram: 10/07/18 0510 10/07/18 0510 Results 24hrs Laboratory Tests Test 10/06/18 15:55 10/06/18 17:31 10/06/18 19:52 10/06/18 20:49 White Blood Count 13.7 #H Red Blood Count 4.55 L Hemoglobin 13.6 L Hematocrit 39.5 L Mean Corpuscular 86.8 Volume Mean Corpuscular 29.9 Hemoglobin Mean Corpuscular 34.4 Hemoglobin Concent Red Cell 12.4 Distribution Width Platelet Count 261 Mean Platelet Volume 10.8 H Immature 2.000 H Granulocytes % Neutrophils % 72.5 Lymphocytes % 12.9 L Monocytes % 9.7 Eosinophils % 2.2 Basophils % 0.7 Nucleated Red Blood 0.0 Cells % Immature 0.270 H Granulocytes # Neutrophils # 9.9 H Lymphocytes # 1.8 Monocytes # 1.3 H Eosinophils # 0.3 Basophils # 0.1 Nucleated Red Blood 0.0 Cells # Sodium Level 138 138 Potassium Level 4.6 4.5 Chloride Level 106 107 Carbon Dioxide Level 17 L 20 L Anion Gap 15 H 11 Blood Urea Nitrogen 31 H 32 H Creatinine 1.35 H 1.33 H Est Glomerular 54 L 55 L Filtrat Rate mL/min Glucose Level 217 246 H Calcium Level 8.9 8.7 Phosphorus Level 3.0 3.2 Magnesium Level 2.4 2.2 Bedside Glucose 180 215 Test 10/06/18 23:41 10/07/18 02:40 10/07/18 05:10 10/07/18 08:20 Sodium Level 139 140 Potassium Level 4.5 4.5 Chloride Level 107 108 Carbon Dioxide Level 21 19 L Anion Gap 11 13 Blood Urea Nitrogen 31 H 29 H Creatinine 1.29 H 1.27 H Est Glomerular 57 L 58 L Filtrat Rate mL/min Glucose Level 202 225 H Calcium Level 8.9 9.4 Phosphorus Level 3.1 3.0 Magnesium Level 2.2 2.1 Bedside Glucose 174 209 White Blood Count 10.6 # Red Blood Count 4.71 Hemoglobin 14.0 Hematocrit 40.4 L Mean Corpuscular 85.8 Volume Mean Corpuscular 29.7 Hemoglobin Mean Corpuscular 34.7 Hemoglobin Concent Red Cell 12.2 Distribution Width Platelet Count 271 Mean Platelet Volume 10.8 H Immature 4.800 H Granulocytes % Neutrophils % 62.9 Lymphocytes % 15.8 Monocytes % 11.4 H Eosinophils % 3.8 Basophils % 1.3 Nucleated Red Blood 0.0 Cells % Immature 0.510 H Granulocytes # Neutrophils # 6.7 Lymphocytes # 1.7 Monocytes # 1.2 H Eosinophils # 0.4 Basophils # 0.1 Nucleated Red Blood 0.0 Cells # Test 10/07/18 12:05 Bedside Glucose 262 H Medications Medication Current Medications Ondansetron HCl (Zofran Inj) 4 mg Q6H PRN IV NAUSEA AND/OR VOMITING; Start 10/05/18 at 07:00 Albuterol/ Ipratropium (Duoneb) 3 ml Q2H RESP THERAPY PRN NEB SHORTNESS OF BREATH; Start 10/05/18 at 07:00 Acetaminophen (Tylenol Liquid) 650 mg Q6H PRN PO PAIN LEVEL 1-3 OR FEVER Last administered on 10/05/18at 22:20; Admin Dose 650 MG; Start 10/05/18 at 07:00 Magnesium Hydroxide (Milk Of Mag) 30 ml DAILY PRN PO CONSTIPATION Last administered on 10/07/18at 09:41; Admin Dose 30 ML; Start 10/05/18 at 07:00 Enoxaparin Sodium (Lovenox) 40 mg DAILY SC Last administered on 10/07/18at 08:24; Admin Dose 40 MG; Start 10/05/18 at 09:00 Ceftriaxone Sodium 50 ml @ 100 mls/hr DAILY IVPB Last administered on at 09:38; Admin Dose 100 MLS/HR; Start 10/05/18 at 09:00 Diagnostic Test (Pha) (Accu-Chek) 1 ea 02 XX ; Start 10/06/18 at 02:00 Insulin Aspart (Novolog Insulin Pen) NOVOLOG *MILD* ALGORITHM WITH MEALS BEDTIME SC Last administered on 10/07/18 08:27; Admin Dose 2 UNIT; Start 10/05/18 at 17:35 Insulin Aspart (Novolog Insulin Pen) 8 unit WITH MEALS SC Last administered on 10/07/18 12:38; Admin Dose 8 UNIT; Start 10/06/18 at 17:35 Amitriptyline HCl (Elavil) 25 mg QHS PO Last administered on 10/06/18 20:54; Admin Dose 25 MG; Start 10/06/18 at 21:00 Aspirin (Halfprin) 81 mg DAILY PO Last administered on 10/07/18 08:24; Admin Dose 81 MG; Start 10/06/18 at 16:00 Clopidogrel Bisulfate (plaVIX) 75 mg DAILY PO Last administered on 10/07/18 08:24; Admin Dose 75 MG; Start 10/06/18 at 16:00 EZETIMIBE (Zetia) 10 mg DAILY PO Last administered on 10/07/18 08:24; Admin Dose 10 MG; Start 10/06/18 at 16:00 Fenofibrate (Tricor) 145 mg DAILY PO Last administered on 10/07/18 08:24; Admin Dose 145 MG; Start 10/06/18 at 16:00 Lisinopril (Zestril) 10 mg DAILY PO Last administered on 10/07/18 08:25; Admin Dose 10 MG; Start 10/06/18 at 16:00 Loratadine (Claritin) 10 mg DAILY PO Last administered on 10/07/18 08:24; Admin Dose 10 MG; Start 10/06/18 at 16:00 Montelukast Sodium (Singulair) 10 mg QHS PO Last administered on 10/06/18 20:54; Admin Dose 10 MG; Start 10/06/18 at 21:00 Tamsulosin HCl (Flomax) 0.4 mg DAILY@2100 PO ; Start 10/07/18 at 21:00 Miscellaneous Information 1 ea NOTE XX ; Start 10/06/18 at 16:00 Glucose (Glutose) 15 gm Q15M PRN PO DECREASED GLUCOSE; Start 10/06/18 at 16:00 Glucose (Glutose) 22.5 gm Q15M PRN PO DECREASED GLUCOSE; Start 10/06/18 at 16:00 Dextrose (D50w Syringe) 25 ml Q15M PRN IV DECREASED GLUCOSE; Start 10/06/18 at 16:00 Dextrose (D50w Syringe) 50 ml Q15M PRN IV DECREASED GLUCOSE; Start 10/06/18 at 16:00 Glucagon (Glucagen) 1 mg Q15M PRN IM DECREASED GLUCOSE; Start 10/06/18 at 16:00 Glucose (Glutose) 15 gm Q15M PRN BUCCAL DECREASED GLUCOSE; Start 10/06/18 at 16:00 Linagliptin (Tradjenta) 5 mg DAILY PO Last administered on 10/07/18at 08:25; Admin Dose 5 MG; Start 10/07/18 at 09:00 Diagnostic Test (Pha) (Accu-Chek) 1 ea AC MEALS AND BEDTIME XX ; Start 10/06/18 at 17:35 Famotidine (Pepcid) 20 mg DAILY PO Last administered on 10/07/18at 08:25; Admin Dose 20 MG; Start 10/07/18 at 09:00 Insulin Glargine (Lantus) 35 units DAILY@2000 SC ; Start 10/07/18 at 20:00 SARAH PARMAR MD Oct 07, 2018 13:30
[2018-10-07 14:41] VITALS: BP 113/56; PULSE 86; RESP 18
[2018-10-07] MEDS ORDERED: TAMS-14 PO (15:56)
[2018-10-07] MEDS ORDERED: LATA2.5D2 BOTH EYES (16:04)
[2018-10-07] MEDS ORDERED: BRIN8DRO BOTH EYES (16:04)
[2018-10-07] MEDS ORDERED: MINE3.5O31 BOTH EYES (16:04)
[2018-10-07] MEDS ORDERED: LIDO40SO8 MM (16:07)
[2018-10-07] MEDS: PANTOPRAZOLE (EC) 40 MG TAB PO SCH (18:23)
[2018-10-07 19:40] VITALS: BP 92/54; PULSE 82; RESP 20
[2018-10-07] MEDS: TAMSULOSIN (SR) 0.4 MG CAP PO SCH (20:30)
[2018-10-07] MEDS: MONTELUKAST 10 MG TAB PO SCH (20:30)
[2018-10-07] MEDS: LIDOCAINE 4% CR TOP SCH (20:30)
[2018-10-07] MEDS: ARTIFICIAL TEARS 15 ML OPH BOTH EYES SCH (20:30)
[2018-10-07] MEDS: INSULIN GLARGINE [LANTus] (100 UNITS/ML) SYG SC SCH (20:33)
[2018-10-07] MEDS ORDERED: LATANOPROST 0.005% 2.5 ML OPH BOTH EYES SCH (21:00)
[2018-10-07] MEDS: LATANOPROST 0.005% 2.5 ML OPH BOTH EYES SCH (21:51)
[2018-10-08 01:58] VITALS: BP 98/60; PULSE 81; RESP 18
[2018-10-08] MEDS: ACCU-CHEK XX SCH ×5 (02:31→21:00)
[2018-10-08] MEDS: PANTOPRAZOLE (EC) 40 MG TAB PO SCH ×2 (06:17→17:13)
[2018-10-08 08:00] VITALS: BP 113/71; PULSE 67; RESP 17
[2018-10-08] MEDS: INSULIN ASPART [NOVOLOG] 3 ML PEN SC SCH ×7 (08:33→20:50)
[2018-10-08] MEDS: ENOXAPARIN 40 MG/0.4 ML SYG SC SCH (08:34)
[2018-10-08] MEDS: ARTIFICIAL TEARS 15 ML OPH BOTH EYES SCH ×2 (08:37→20:49)
[2018-10-08] MEDS: CEFTRIAXONE 1 GM/50 ML (PMX) 50 ML IVPB SCH (08:38)
[2018-10-08] MEDS: FENOFIBRATE 145 MG TAB PO SCH (08:44)
[2018-10-08] MEDS: LORATADINE 10 MG TAB PO SCH (08:44)
[2018-10-08] MEDS: ASPIRIN (EC) 81 MG TAB PO SCH (08:44)
[2018-10-08] MEDS: CLOPIDOGREL 75 MG TAB PO SCH (08:44)
[2018-10-08] MEDS: LISINOPRIL 10 MG TAB PO SCH (08:45)
[2018-10-08] MEDS: LINAGLIPTIN 5 MG TABLET PO SCH (08:45)
[2018-10-08] MEDS: EZETIMIBE 10 MG TAB PO SCH (08:45)
[2018-10-08] MEDS: LIDOCAINE 4% CR TOP SCH ×2 (08:46→20:49)
--- NOTE | 2018-10-08 13:39 | CONS ---
Consult Date/Type/Reason Admit Date/Time Oct 05, 2018 at 05:14 Initial Consult Date 10/07/18 Type of Consultation: Urology Reason for Consultation High postvoid residual Requesting Provider: GILLIAN SALAZAR MD Date/Time of Note DATE: 10/08/18 TIME: 13:35 Subjective The patient has been voiding but his postvoid residual is high. Objective Vitals Vital Signs Date Temp Pulse Resp B/P (MAP) Pulse Ox O2 O2 Flow FiO2 Time Delivery Rate 10/08/18 98.3 67 17 113/71 95 Room Air 08:00 (85) 10/05/18 2.0 18:00 Intake and Output 10/07/18 10/07/18 10/08/18 1515:00 23:00 07:00 IntakeIntake Total 50 ml 1000 ml OutputOutput Total 600 ml 2 ml BalanceBalance 50 ml 400 ml -2 ml Exam Pelvic ultrasound showed: The urinary bladder is markedly distended. The urinary bladder is normal in contour and wall thickness. No evidence of bladder stones. No evidence of a bladder mass. There is a prevoid volume of 890 cc and there is a post void volume of 284 cc. There is a postvoid residual of 31%. The prostate is normal in size measuring 3.1 x 3.9 x 3.3 cm. The prostatic volume is 21 cc. There is scattered calcification within the prostate. Results/Medications Result Diagram: 10/07/18 0510 10/07/18 0510 Results 24 hrs Laboratory Tests Test 10/07/18 13:40 10/07/18 17:28 10/07/18 20:27 10/08/18 02:04 Prostate Specific 4.3 H Antigen Bedside Glucose 162 210 206 Test 10/08/18 02:25 10/08/18 08:09 10/08/18 10:09 10/08/18 12:34 Urine Color YELLOW Urine Clarity CLEAR Urine pH 6.0 Urine Specific 1.024 [place] Urine Ketones 1+ H Urine Nitrite NEGATIVE Urine Bilirubin NEGATIVE Urine Urobilinogen NEGATIVE Urine Leukocyte NEGATIVE Esterase Urine Microscopic > 182 H RBC Urine Microscopic 8 H WBC Urine Hemoglobin 3+ H Urine Glucose 3+ H Urine Total Protein NEGATIVE Bedside Glucose 166 255 H 296 H Home Meds Reported Medications Lidocaine 4% Topical (Lidocaine HCl) 4%-50 Ml Soln, 1 APPLIC MM BID, BOT 10/07/18 Latanoprost (Latanoprost) 2.5 Ml Drops, 1 DROP BOTH EYES QHS, #1 BOTTLE 10/07/18 Artificial Tears* (Akwa Oint*) 3.5 Gm Oint, 1 APPLIC BOTH EYES BID, #1 TUB 10/07/18 Brinzolamide-Brimonidine (Simbrinza 1%-0.2% Oph) 1%-0.2% - 8 Ml Drops.susp, 1 DROP BOTH EYES BID, EA 10/07/18 Tamsulosin Hcl* (Flomax*) 0.4 Mg Cap.er.24h, 0.4 MG PO BID, CAP 10/07/18 Montelukast Sodium* (Montelukast Sodium*) 10 Mg Tablet, 10 MG PO QHS, #30 TAB 10/05/18 Ezetimibe* (Zetia*) 10 Mg Tablet, 10 MG PO DAILY, TAB 10/05/18 Aspirin (Low Dose Aspirin) 81 Mg Tablet.dr, 81 MG PO DAILY, #30 TAB 10/05/18 Loratadine* (Loratadine*) 10 Mg Tablet, 10 MG PO DAILY, #30 TAB 10/05/18 Amitriptyline Hcl* (Amitriptyline Hcl*) 25 Mg Tablet, 25 MG PO QHS, #30 TAB 10/05/18 Clopidogrel Bisulfate (Clopidogrel) 75 Mg Tablet, 75 MG PO DAILY, #30 TAB 10/05/18 Empagliflozin (Jardiance) 25 Mg Tablet, 25 MG PO DAILY, TAB 10/05/18 Dulaglutide (Trulicity) 1.5 Mg/0.5 Ml Pen.injctr, 1.5 MG SQ EVERY Saturday10/05/18 Simvastatin* (Zocor*) 40 Mg Tablet, 40 MG PO QHS, #30 TAB 10/05/18 Lisinopril* (Lisinopril*) 10 Mg Tablet, 10 MG PO DAILY, #30 TAB 10/05/18 Fenofibrate Nanocrystallized* (Fenofibrate*) 145 Mg Tablet, 145 MG PO DAILY, TAB 10/05/18 Insulin Glargine,Hum.rec.anlog (Tata Farias) 300 Unit/1 Ml Insuln.pen, 60 UN IT SQ QAM, EA 10/05/18 Discontinued Reported Medications Tamsulosin Hcl* (Flomax*) 0.4 Mg Cap.er.24h, 0.4 MG PO DAILY, CAP 10/05/18 Dapagliflozin Propanediol (Farxiga) 10 Mg Tablet, 10 MG PO QAM, #30 TAB 08/03/16 Hydrochlorothiazide* (Hydrochlorothiazide*) 25 Mg Tab, 25 MG PO DAILY, #30 TAB 08/03/16 Fenofibrate Nanocrystallized* (Fenofibrate*) 145 Mg Tablet, 145 MG PO DAILY, TAB 08/03/16 Sitagliptin Phos/Metformin HCl (Janumet 50-1,000 mg Tablet) 1 Each Tablet, 1 TAB PO BID, TAB 08/03/16 Insulin Glargine,Hum.rec.anlog (Tata Farias) 300 Unit/1 Ml Insuln.pen, 55 UNIT SQ DAILY 08/03/16 Lisinopril* (Lisinopril*) 10 Mg Tablet, 10 MG PO DAILY, TAB 07/12/14 Glimepiride* (Glimepiride*) 4 Mg Tablet, 4 MG PO BID, TAB 07/12/14 Simvastatin (Simvastatin) 40 Mg Tablet, 40 MG PO HS, TAB 07/12/14 Discontinued Scripts Doxycycline Monohydrate* (Doxycycline Monohydrate*) 100 Mg Tablet, 100 MG PO BID for 10 Days, TAB Prov:MARIO MONTES MD 08/09/16 Silver Sulfadiazine (THERMAZENE 1% 25 GM) 1 Applic Cr, 1 APPLIC TOP DAILY for 28 Days Prov:MARIO MONTES MD 08/09/16 Clopidogrel Bisulfate (Clopidogrel) 75 Mg Tablet, 75 MG PO DAILY, #30 TAB Prov:ROB TAYLOR NP 09/07/14 Aspirin* (Aspirin* EC) 81 Mg Tablet.dr, 81 MG PO DAILY, #30 TAB Prov:ROB TAYLOR [employer]PRES[employer] 09/07/14 Medications Current Medications Ondansetron HCl (Zofran Inj) 4 mg Q6H PRN IV NAUSEA AND/OR VOMITING; Start 10/05/18 at 07:00 Albuterol/ Ipratropium (Duoneb) 3 ml Q2H RESP THERAPY PRN NEB SHORTNESS OF BREATH; Start 10/05/18 at 07:00 Acetaminophen (Tylenol Liquid) 650 mg Q6H PRN PO PAIN LEVEL 1-3 OR FEVER Last administered on 10/05/18 22:20; Admin Dose 650 MG; Start 10/05/18 at 07:00 Magnesium Hydroxide (Milk Of Mag) 30 ml DAILY PRN PO CONSTIPATION Last administered on 10/07/18 09:41; Admin Dose 30 ML; Start 10/05/18 at 07:00 Enoxaparin Sodium (Lovenox) 40 mg DAILY SC Last administered on 10/08/18 08 :34; Admin Dose 40 MG; Start 10/05/18 at 09:00 Ceftriaxone Sodium 50 ml @ 100 mls/hr DAILY IVPB Last administered on 10/08/18 08:38; Admin Dose 100 MLS/HR; Start 10/05/18 at 09:00 Diagnostic Test (Pha) (Accu-Chek) 1 ea 02 XX Last administered on 10/08/18 02:31; Admin Dose 1 EA; Start 10/06/18 at 02:00 Insulin Aspart (Novolog Insulin Pen) NOVOLOG *MILD* ALGORITHM WITH MEALS BEDTIME SC Last administered on 10/08/18 12:49; Admin Dose 4 UNIT; Start 10/05/18 at 17:35 Insulin Aspart (Novolog Insulin Pen) 8 unit WITH MEALS SC Last administered on 10/08/18 12:48; Admin Dose 8 UNIT; Start 10/06/18 at 17:35 Aspirin (Halfprin) 81 mg DAILY PO Last administered on 10/08/18 08:44; Admin Dose 81 MG; Start 10/06/18 at 16:00 Clopidogrel Bisulfate (plaVIX) 75 mg DAILY PO Last administered on 10/08/18 08:44; Admin Dose 75 MG; Start 10/06/18 at 16:00 EZETIMIBE (Zetia) 10 mg DAILY PO Last administered on 10/08/18 08:45; Admin Dose 10 MG; Start 10/06/18 at 16:00 Fenofibrate (Tricor) 145 mg DAILY PO Last administered on 10/08/18 08:44; Admin Dose 145 MG; Start 10/06/18 at 16:00 Lisinopril (Zestril) 10 mg DAILY PO Last administered on 10/08/18 08:45; Admin Dose 10 MG; Start 10/06/18 at 16:00 Loratadine (Claritin) 10 mg DAILY PO Last administered on 10/08/18 08:44; Admin Dose 10 MG; Start 10/06/18 at 16:00 Montelukast Sodium (Singulair) 10 mg QHS PO Last administered on 10/07/18 20:30; Admin Dose 10 MG; Start 10/06/18 at 21:00 Tamsulosin HCl (Flomax) 0.4 mg DAILY@2100 PO Last administered on 10/07/18 20:30; Admin Dose 0.4 MG; Start 10/07/18 at 21:00 Miscellaneous Information 1 ea NOTE XX ; Start 10/06/18 at 16:00 Glucose (Glutose) 15 gm Q15M PRN PO DECREASED GLUCOSE; Start 10/06/18 at 16:00 Glucose (Glutose) 22.5 gm Q15M PRN PO DECREASED GLUCOSE; Start 10/06/18 at 1 6:00 Dextrose (D50w Syringe) 25 ml Q15M PRN IV DECREASED GLUCOSE; Start 10/06/18 at 16:00 Dextrose (D50w Syringe) 50 ml Q15M PRN IV DECREASED GLUCOSE; Start 10/06/18 at 16:00 Glucagon (Glucagen) 1 mg Q15M PRN IM DECREASED GLUCOSE; Start 10/06/18 at 16:00 Glucose (Glutose) 15 gm Q15M PRN BUCCAL DECREASED GLUCOSE; Start 10/06/18 at 16:00 Linagliptin (Tradjenta) 5 mg DAILY PO Last administered on 10/08/18 08:45; Admin Dose 5 MG; Start 10/07/18 at 09:00 Diagnostic Test (Pha) (Accu-Chek) 1 ea AC MEALS AND BEDTIME XX Last administered on 10/08/18at 11:30; Admin Dose 1 EA; Start 10/06/18 at 17:35 Insulin Glargine (Lantus) 35 units DAILY@2000 SC Last administered on 10/07/18 20:33; Admin Dose 35 UNITS; Start 10/07/18 at 20:00 Pantoprazole (Protonix Tab) 40 mg BID@06,18 PO Last administered on 10/08/18 06:17; Admin Dose 40 MG; Start 10/07/18 at 18:00 Docusate Sodium (Colace) 100 mg BID PRN PO CONSTIPATION; Start 10/07/18 at 13:30 Polyethylene Glycol (Miralax) 17 gm DAILY PRN PO CONSTIPATION; Start 10/07/18 at 13:30 Bisacodyl (Dulcolax Supp) 10 mg ONCE PRN [place] CONSTIPATION; Start 10/07/18 at 13:30; Stop 10/08/18 at 23:00 Lidocaine (Lmx 4% Plus) 1 applic BID TOP Last administered on 10/08/18at 08:46; Admin Dose 1 APPLIC; Start 10/07/18 at 21:00 Eye Lubricant (Artificial Tears Oph) 1 drop BID BOTH EYES Last administered on 10/08/18at 08:37; Admin Dose 1 DROP; Start 10/07/18 at 21:00 Latanoprost (Xalatan) 1 drop HS BOTH EYES Last administered on 10/07/18at 21:51; Admin Dose 1 DROP; Start 10/07/18 at 21:30 Assessment/Plan Hospital Course (Demo Recall) 57-year-old male with history of diabetes mellitus type 2, coronary artery disease status post stent placement complained of generalize body weakness and lightheadedness and poor appetite for 4 days prior to admission. He reports having nocturia 2-3 times and bedwetting once a week. He occasionally does have urinary urgency or urgency incontinence. He denies any hematuria and there is no history of dysuria. He does have urinary frequency during the day. He does urinate every 1 hour. He was seen by Dr. Maldonado and it appears he had a cystoscopy and he is not sure of the findings. He was told that "he may need to have a catheter". He was on amitriptyline 25 mg at bedtime daily and that may be contributing to additional bladder relaxation and increasing the postvoid residual. The prostate is mildly enlarged on the rectal exam but not enough to cause his symptoms. Impression: High postvoid residual most likely related to neurogenic diabetic bladder. Also effect of medications such as the amitriptyline. Plan: He underwent pelvic ultrasound and that showed: The urinary bladder is markedly distended. The urinary bladder is normal in contour and wall thickness. No evidence of bladder stones. No evidence of a bladder mass. There is a prevoid volume of 890 cc and there is a post void volume of 284 cc. There is a postvoid residual of 31%. The prostate is normal in size measuring 3.1 x 3.9 x 3.3 cm. The prostatic volume is 21 cc. There is scattered calcification within the prostate. The PSA was 4.3. The nurse tried to do straight cath on him today but there was some difficulty. We will try him on Urecholine 10 mg 3 times daily and may have to increase it to 25 mg 3 times a day. Continue to monitor his voiding and his postvoid residual was a bladder scan. SARAH PARMAR MD Oct 08, 2018 13:39
--- NOTE | 2018-10-08 13:57 | PN ---
Date/Time of Note Date/Time of Note DATE: 10/08/18 TIME: 13:57 Assessment/Plan VTE Prophylaxis Risk score (from Ns)>0 risk: 2 SCD applied (from Ns): Yes Pharmacological prophylaxis: NA/contraindicated Pharm contraindication: low risk/ambulating Lines/Catheters IV Catheter Type (from Nrs): [place] Urinary Cath still in place: No Assessment/Plan Hospital Course Hospital Course 1.DKA, BS is in 450. Chest xray is clear, UA is positive for increased WBC, neg ative for leucocyte esterase. 2. Hx of DM type II 3. Overweight 4. Hx of CAD with tstatus post PCI on 07/12/2014 to the proximal to mid left anterior descending. by dr Fisher 5. SIRS with WBC 26 ? UTI 6. SUSAN. Cr 2.63> improved with hydraation/? Obstruction with BPH 7. Hx of Hypertension. 8. Dyslipidemia. 9. Hx of environmental allergies Assessment/Plan -cw lantus to 35 unit and cw mealtime - added urecholine and pt instructed to double void - cw Flomax - DM education - repeat CBC is improved - cx pending so far - resume home meds - ambulate Result Diagram: 10/07/18 0510 10/07/18 0510 Results 24hrs Laboratory Tests Test 10/07/18 17:28 10/07/18 20:27 10/08/18 02:04 10/08/18 02:25 Bedside Glucose 162 210 206 Urine Color YELLOW Urine Clarity CLEAR Urine pH 6.0 Urine Specific 1.024 [place] Urine Ketones 1+ H Urine Nitrite NEGATIVE Urine Bilirubin NEGATIVE Urine Urobilinogen NEGATIVE Urine Leukocyte NEGATIVE Esterase Urine Microscopic > 182 H RBC Urine Microscopic 8 H WBC Urine Hemoglobin 3+ H Urine Glucose 3+ H Urine Total Protein NEGATIVE Test 10/08/18 08:09 10/08/18 10:09 10/08/18 12:34 Bedside Glucose 166 255 H 296 H Subjective 24 Hr Interval Summary Free Text/Dictation high PVR had bm Exam/Review of Systems Exam Vitals Vital Signs Date Temp Pulse Resp B/P (MAP) Pulse Ox O2 O2 Flow FiO2 Time Delivery Rate 10/08/18 98.3 67 17 113/71 95 Room Air 08:00 (85) 10/05/18 2.0 18:00 Intake and Output 10/07/18 10/07/18 10/08/18 1515:00 23:00 07:00 IntakeIntake Total 50 ml 1000 ml OutputOutput Total 600 ml 2 ml BalanceBalance 50 ml 400 ml -2 ml Exam xam onstitutional: alert, oriented Neck: supple Respiratory: clear to auscultation Cardiovascular: regular rate and rhythm Gastrointestinal: soft Genitourinary - Male: CVA tenderness; No nl penis, No nl scrotum, No discharge, No other Musculoskeletal: swelling; No nl extremities to inspection, No nl gait and stance, No joint tenderness, No muscle tone, No muscle weakness, No range of motion, No spine non-tender, No other Results Results Results 24hrs Laboratory Tests Test 10/07/18 17:28 10/07/18 20:27 10/08/18 02:04 10/08/18 02:25 Bedside Glucose 162 210 206 Urine Color YELLOW Urine Clarity CLEAR Urine pH 6.0 Urine Specific 1.024 [place] Urine Ketones 1+ H Urine Nitrite NEGATIVE Urine Bilirubin NEGATIVE Urine Urobilinogen NEGATIVE Urine Leukocyte NEGATIVE Esterase Urine Microscopic > 182 H RBC Urine Microscopic 8 H WBC Urine Hemoglobin 3+ H Urine Glucose 3+ H Urine Total Protein NEGATIVE Test 10/08/18 08:09 10/08/18 10:09 10/08/18 12:34 Bedside Glucose 166 255 H 296 H Medications Medication Current Medications Ondansetron HCl (Zofran Inj) 4 mg Q6H PRN IV NAUSEA AND/OR VOMITING; Start 10/05/18 at 07:00 Albuterol/ Ipratropium (Duoneb) 3 ml Q2H RESP THERAPY PRN NEB SHORTNESS OF BREATH; Start 10/05/18 at 07:00 Acetaminophen (Tylenol Liquid) 650 mg Q6H PRN PO PAIN LEVEL 1-3 OR FEVER Last administered on 10/05/18at 22:20; Admin Dose 650 MG; Start 10/05/18 at 07:00 Magnesium Hydroxide (Milk Of Mag) 30 ml DAILY PRN PO CONSTIPATION Last administered on 10/07/18at 09:41; Admin Dose 30 ML; Start 10/05/18 at 07:00 Enoxaparin Sodium (Lovenox) 40 mg DAILY SC Last administered on 10/08/18at 08:34; Admin Dose 40 MG; Start 10/05/18 at 09:00 Ceftriaxone Sodium 50 ml @ 100 mls/hr DAILY IVPB Last administered on 10/08/18 08:38; Admin Dose 100 MLS/HR; Start 10/05/18 at 09:00 Diagnostic Test (Pha) (Accu-Chek) 1 ea 02 XX Last administered on 10/08/18 02:31; Admin Dose 1 EA; Start 10/06/18 at 02:00 Insulin Aspart (Novolog Insulin Pen) NOVOLOG *MILD* ALGORITHM WITH MEALS BEDTIME SC Last administered on 10/08/18 12:49; Admin Dose 4 UNIT; Start 10/05/18 at 17:35 Insulin Aspart (Novolog Insulin Pen) 8 unit WITH MEALS SC Last administered on 10/08/18 12:48; Admin Dose 8 UNIT; Start 10/06/18 at 17:35 Aspirin (Halfprin) 81 mg DAILY PO Last administered on 10/08/18 08:44; Admin Dose 81 MG; Start 10/06/18 at 16:00 Clopidogrel Bisulfate (plaVIX) 75 mg DAILY PO Last administered on 10/08/18 08:44; Admin Dose 75 MG; Start 10/06/18 at 16:00 EZETIMIBE (Zetia) 10 mg DAILY PO Last administered on 10/08/18 08:45; Admin Dose 10 MG; Start 10/06/18 at 16:00 Fenofibrate (Tricor) 145 mg DAILY PO Last administered on 10/08/18 08:44; Admin Dose 145 MG; Start 10/06/18 at 16:00 Lisinopril (Zestril) 10 mg DAILY PO Last administered on 10/08/18 08:45; Admin Dose 10 MG; Start 10/06/18 at 16:00 Loratadine (Claritin) 10 mg DAILY PO Last administered on 10/08/18 08:44; Admin Dose 10 MG; Start 10/06/18 at 16:00 Montelukast Sodium (Singulair) 10 mg QHS PO Last administered on 10/07/18 20:30; Admin Dose 10 MG; Start 10/06/18 at 21:00 Tamsulosin HCl (Flomax) 0.4 mg DAILY@2100 PO Last administered on 10/07/18 20:30; Admin Dose 0.4 MG; Start 10/07/18 at 21:00 Miscellaneous Information 1 ea NOTE XX ; Start 10/06/18 at 16:00 Glucose (Glutose) 15 gm Q15M PRN PO DECREASED GLUCOSE; Start 10/06/18 at 16:00 Glucose (Glutose) 22.5 gm Q15M PRN PO DECREASED GLUCOSE; Start 10/06/18 at 16:00 Dextrose (D50w Syringe) 25 ml Q15M PRN IV DECREASED GLUCOSE; Start 10/06/18 at 16:00 Dextrose (D50w Syringe) 50 ml Q15M PRN IV DECREASED GLUCOSE; Start 10/06/18 at 16:00 Glucagon (Glucagen) 1 mg Q15M PRN IM DECREASED GLUCOSE; Start 10/06/18 at 16:00 Glucose (Glutose) 15 gm Q15M PRN BUCCAL DECREASED GLUCOSE; Start 10/06/18 at 16:00 Linagliptin (Tradjenta) 5 mg DAILY PO Last administered on 10/08/18at 08:45; Admin Dose 5 MG; Start 10/07/18 at 09:00 Diagnostic Test (Pha) (Accu-Chek) 1 ea AC MEALS AND BEDTIME XX Last administered on 10/08/18at 11:30; Admin Dose 1 EA; Start 10/06/18 at 17:35 Insulin Glargine (Lantus) 35 units DAILY@2000 SC Last administered on 10/07/18at 20:33; Admin Dose 35 UNITS; Start 10/07/18 at 20:00 Pantoprazole (Protonix Tab) 40 mg BID@06,18 PO Last administered on 10/08/18 06:17; Admin Dose 40 MG; Start 10/07/18 at 18:00 Docusate Sodium (Colace) 100 mg BID PRN PO CONSTIPATION; Start 10/07/18 at 13:30 Polyethylene Glycol (Miralax) 17 gm DAILY PRN PO CONSTIPATION; Start 10/07/18 at 13:30 Bisacodyl (Dulcolax Supp) 10 mg ONCE PRN [place] CONSTIPATION; Start 10/07/18 at 1 3:30; Stop 10/08/18 at 23:00 Lidocaine (Lmx 4% Plus) 1 applic BID TOP Last administered on 10/08/18 08:46; Admin Dose 1 APPLIC; Start 10/07/18 at 21:00 Eye Lubricant (Artificial Tears Oph) 1 drop BID BOTH EYES Last administered on 4/24/19at 08:37; Admin Dose 1 DROP; Start 10/07/18 at 21:00 Latanoprost (Xalatan) 1 drop HS BOTH EYES Last administered on 10/07/18at 21:51; Admin Dose 1 DROP; Start 10/07/18 at 21:30 Bethanechol Chloride (Urecholine) 10 mg TID PO ; Start 10/08/18 at 21:00 GILLIAN SALAZAR MD Oct 08, 2018 13:57
[2018-10-08 14:00] VITALS: BP 126/70; PULSE 85; RESP 18
[2018-10-08 20:00] VITALS: BP 89/51; PULSE 75; RESP 18
[2018-10-08] MEDS: MONTELUKAST 10 MG TAB PO SCH (20:48)
[2018-10-08] MEDS: TAMSULOSIN (SR) 0.4 MG CAP PO SCH (20:48)
[2018-10-08] MEDS: INSULIN GLARGINE [LANTus] (100 UNITS/ML) SYG SC SCH (20:50)
[2018-10-08] MEDS: LATANOPROST 0.005% 2.5 ML OPH BOTH EYES SCH (20:51)
[2018-10-08] MEDS: BETHANECHOL 10 MG TAB PO SCH (20:54)
[2018-10-08 22:18] VITALS: BP 96/65; PULSE 72; RESP 18
[2018-10-09 02:00] VITALS: BP 99/58; PULSE 72; RESP 18
[2018-10-09] MEDS: ACCU-CHEK XX SCH ×5 (02:21→21:00)
[2018-10-09] MEDS: PANTOPRAZOLE (EC) 40 MG TAB PO SCH ×2 (05:37→17:41)
[2018-10-09 07:30] VITALS: BP 98/59; PULSE 59; RESP 16
[2018-10-09] MEDS: INSULIN ASPART [NOVOLOG] 3 ML PEN SC SCH ×7 (08:19→21:30)
[2018-10-09] MEDS: LIDOCAINE 4% CR TOP SCH ×3 (09:00→21:29)
[2018-10-09] MEDS: LISINOPRIL 10 MG TAB PO SCH (09:00)
[2018-10-09] MEDS: CEFTRIAXONE 1 GM/50 ML (PMX) 50 ML IVPB SCH (09:16)
[2018-10-09] MEDS: ARTIFICIAL TEARS 15 ML OPH BOTH EYES SCH ×2 (09:16→21:28)
[2018-10-09] MEDS: CLOPIDOGREL 75 MG TAB PO SCH (09:17)
[2018-10-09] MEDS: LORATADINE 10 MG TAB PO SCH (09:17)
[2018-10-09] MEDS: LINAGLIPTIN 5 MG TABLET PO SCH (09:17)
[2018-10-09] MEDS: EZETIMIBE 10 MG TAB PO SCH (09:17)
[2018-10-09] MEDS: ASPIRIN (EC) 81 MG TAB PO SCH (09:17)
[2018-10-09] MEDS: FENOFIBRATE 145 MG TAB PO SCH (09:17)
[2018-10-09] MEDS: BETHANECHOL 10 MG TAB PO SCH ×2 (09:17→13:55)
[2018-10-09] MEDS: ENOXAPARIN 40 MG/0.4 ML SYG SC SCH (09:20)
[2018-10-09] MEDS: MAGNESIUM HYDROXIDE 30ML CUP PO PRN (09:24)
[2018-10-09 14:09] VITALS: BP 97/67; PULSE 78; RESP 16
--- NOTE | 2018-10-09 16:53 | PN ---
Date/Time of Note Date/Time of Note DATE: 10/09/18 TIME: 16:51 Assessment/Plan VTE Prophylaxis Risk score (from Ns)>0 risk: 2 SCD applied (from Ns): Yes Pharmacological prophylaxis: NA/contraindicated Pharm contraindication: low risk/ambulating Lines/Catheters IV Catheter Type (from Nrsg): Saline Lock Urinary Cath still in place: No Assessment/Plan Hospital Course Hospital Course 1.DKA, BS is in 450. Chest xray is clear, UA is positive for increased WBC, neg ative for leucocyte esterase. Sugars over 250 2. Hx of DM type II 3. Overweight 4. Hx of CAD with tstatus post PCI on 07/12/2014 to the proximal to mid left anterior descending. by dr Fisher 5. SIRS with WBC 26 ? UTI 6. SUSAN. Cr 2.63> improved with hydraation/? Obstruction with BPH which is improving 7. Hx of Hypertension. 8. Dyslipidemia. 9. Hx of environmental allergies 10 heartburn Assessment/Plan -Increase Lantus to 45 unit and cw mealtime - added urecholine and pt instructed to double void, will ask dr fraser for further recs -Protonix 40 twice daily we will add Mylanta and will call GI -Hold lisinopril due to low blood pressure -Recheck troponin - cx pending so far - resume home meds - ambulate Result Diagram: 10/07/18 0510 10/09/18 0602 Results 24hrs Laboratory Tests Test 10/08/18 16:54 10/08/18 20:46 10/09/18 02:04 10/09/18 06:02 Bedside Glucose 227 H 291 H 192 Sodium Level 139 Potassium Level 4.0 Chloride Level 104 Carbon Dioxide Level 25 Anion Gap 10 Blood Urea Nitrogen 29 H Creatinine 1.37 H Est Glomerular 53 L Filtrat Rate mL/min Glucose Level 209 Calcium Level 9.5 Test 10/09/18 08:13 10/09/18 12:02 Bedside Glucose 225 H 295 H Subjective 24 Hr Interval Summary Free Text/Dictation Still having heartburn. sTill having high residual even after the urine output is doing double voiding Exam/Review of Systems Exam Vitals Vital Signs Date Temp Pulse Resp B/P (MAP) Pulse Ox O2 O2 Flow FiO2 Time Delivery Rate 10/09/18 98.1 78 16 97/67 (77) 95 Room Air 14:09 10/05/18 2.0 18:00 Intake and Output 10/08/18 10/08/18 10/09/18 1515:00 23:00 07:00 IntakeIntake Total 1010 ml 400 ml OutputOutput Total 900 ml 1000 ml BalanceBalance 110 ml -600 ml Exam xam onstitutional: alert, oriented Neck: supple Respiratory: clear to auscultation Cardiovascular: regular rate and rhythm Gastrointestinal: soft Genitourinary - Male: CVA tenderness; No nl penis, No nl scrotum, No discharge, No other Musculoskeletal: swelling; No nl extremities to inspection, No nl gait and stance, No joint tenderness, No muscle tone, No muscle weakness, No range of motion, No spine non-tender, No other Results Results 24hrs Laboratory Tests Test 10/08/18 16:54 10/08/18 20:46 10/09/18 02:04 10/09/18 06:02 Bedside Glucose 227 H 291 H 192 Sodium Level 139 Potassium Level 4.0 Chloride Level 104 Carbon Dioxide Level 25 Anion Gap 10 Blood Urea Nitrogen 29 H Creatinine 1.37 H Est Glomerular 53 L Filtrat Rate mL/min Glucose Level 209 Calcium Level 9.5 Test 10/09/18 08:13 10/09/18 12:02 Bedside Glucose 225 H 295 H Medications Medication Current Medications Ondansetron HCl (Zofran Inj) 4 mg Q6H PRN IV NAUSEA AND/OR VOMITING; Start 10/05/18 at 07:00 Albuterol/ Ipratropium (Duoneb) 3 ml Q2H RESP THERAPY PRN NEB SHORTNESS OF BREATH; Start 10/05/18 at 07:00 Acetaminophen (Tylenol Liquid) 650 mg Q6H PRN PO PAIN LEVEL 1-3 OR FEVER Last administered on 10/05/18at 22:20; Admin Dose 650 MG; Start 10/05/18 at 07:00 Magnesium Hydroxide (Milk Of Mag) 30 ml DAILY PRN PO CONSTIPATION Last administered on 10/09/18at 09:24; Admin Dose 30 ML; Start 10/05/18 at 07:00 Enoxaparin Sodium (Lovenox) 40 mg DAILY SC Last administered on 10/09/18at 09:20; Admin Dose 40 MG; Start 10/05/18 at 09:00 Ceftriaxone Sodium 50 ml @ 100 mls/hr DAILY IVPB Last administered on 10/09/18 09:16; Admin Dose 100 MLS/HR; Start 10/05/18 at 09:00 Diagnostic Test (Pha) (Accu-Chek) 1 ea 02 XX Last administered on 10/09/18 02:21; Admin Dose 1 EA; Start 10/06/18 at 02:00 Insulin Aspart (Novolog Insulin Pen) NOVOLOG *MILD* ALGORITHM WITH MEALS BEDTIME SC Last administered on 10/09/18 12:03; Admin Dose 4 UNIT; Start 10/05/18 at 17:35 Insulin Aspart (Novolog Insulin Pen) 8 unit WITH MEALS SC Last administered on 10/09/18 12:04; Admin Dose 8 UNIT; Start 10/06/18 at 17:35 Aspirin (Halfprin) 81 mg DAILY PO Last administered on 10/09/18 09:17; Admin Dose 81 MG; Start 10/06/18 at 16:00 Clopidogrel Bisulfate (plaVIX) 75 mg DAILY PO Last administered on 10/09/18 09:17; Admin Dose 75 MG; Start 10/06/18 at 16:00 EZETIMIBE (Zetia) 10 mg DAILY PO Last administered on 10/09/18 09:17; Admin Dose 10 MG; Start 10/06/18 at 16:00 Fenofibrate (Tricor) 145 mg DAILY PO Last administered on 10/09/18 09:17; Admin Dose 145 MG; Start 10/06/18 at 16:00 Loratadine (Claritin) 10 mg DAILY PO Last administered on 10/09/18 09:17; Admin Dose 10 MG; Start 10/06/18 at 16:00 Montelukast Sodium (Singulair) 10 mg QHS PO Last administered on 10/08/18 20:48; Admin Dose 10 MG; Start 10/06/18 at 21:00 Tamsulosin HCl (Flomax) 0.4 mg DAILY@2100 PO Last administered on 10/08/18 20:48; Admin Dose 0.4 MG; Start 10/07/18 at 21:00 Miscellaneous Information 1 ea NOTE XX ; Start 10/06/18 at 16:00 Glucose (Glutose) 15 gm Q15M PRN PO DECREASED GLUCOSE; Start 10/06/18 at 16:00 Glucose (Glutose) 22.5 gm Q15M PRN PO DECREASED GLUCOSE; Start 10/06/18 at 16:00 Dextrose (D50w Syringe) 25 ml Q15M PRN IV DECREASED GLUCOSE; Start 10/06/18 at 16:00 Dextrose (D50w Syringe) 50 ml Q15M PRN IV DECREASED GLUCOSE; Start 10/06/18 at 16:00 Glucagon (Glucagen) 1 mg Q15M PRN IM DECREASED GLUCOSE; Start 10/06/18 at 16:00 Glucose (Glutose) 15 gm Q15M PRN BUCCAL DECREASED GLUCOSE; Start 10/06/18 at 16:00 Linagliptin (Tradjenta) 5 mg DAILY PO Last administered on 10/09/18 09:17; Admin Dose 5 MG; Start 10/07/18 at 09:00 Diagnostic Test (Pha) (Accu-Chek) 1 ea AC MEALS AND BEDTIME XX Last administered on 10/09/18 12:04; Admin Dose 1 EA; Start 10/06/18 at 17:35 Pantoprazole (Protonix Tab) 40 mg BID@06,18 PO Last administered on 10/09/18 05:37; Admin Dose 40 MG; Start 10/07/18 at 18:00 Docusate Sodium (Colace) 100 mg BID PRN PO CONSTIPATION Last administered on 04:57; Admin Dose 100 MG; Start 10/07/18 at 13:30 Polyethylene Glycol (Miralax) 17 gm DAILY PRN PO CONSTIPATION; Start 10/07/18 at 13:30 Lidocaine (Lmx 4% Plus) 1 applic BID TOP Last administered on 10/09/18 09:28; Admin Dose 1 APPLIC; Start 10/07/18 at 21:00 Eye Lubricant (Artificial Tears Oph) 1 drop BID BOTH EYES Last administered on 10/09/18 09:16; Admin Dose 1 DROP; Start 10/07/18 at 21:00 Latanoprost (Xalatan) 1 drop HS BOTH EYES Last administered on 10/08/18 20:51; Admin Dose 1 DROP; Start 10/07/18 at 21:30 Bethanechol Chloride (Urecholine) 10 mg TID PO Last administered on 10/09/18 13:55; Admin Dose 10 MG; Start 10/08/18 at 21:00 Insulin Glargine (Lantus) 45 units DAILY@2000 SC ; Start 10/09/18 at 20:00 Al Hydrox/Mg Hydrox/Simethicone (Mag-Al Plus) 30 ml Q4H PRN PO GASTROINTESTINAL UPSET; Start 10/09/18 at 17:00; Status UNV GILLIAN SALAZAR MD Oct 09, 2018 16:53
[2018-10-09] MEDS ORDERED: AL HYDROX/MG HYDROX/SIMETH 30 ML CUP PO PRN (17:00)
--- NOTE | 2018-10-09 17:50 | CONS ---
Assessment/Plan Assessment/Plan Hospital Course (Demo Recall) Summary Assessment and Plan: Assessment: Pyrosis DKA- resolved DM HTN CAD Hx of angioplasty with stent placement 2014- on Plavix Plan: Carafate QID/Continue PPI BID Recommend Out-pt EGD and colonoscopy for CRC screening If sx change or worsen with medication, will consider in-pt EGD at that time. GERD diet/Reflux precautions Patient seen in collaboration with Dr. Carvajal CC: JOHN CARVAJAL MD ; Consultation Date/Type/Reason Admit Date/Time Oct 05, 2018 at 05:14 Date of Consultation: Oct 09, 2018 Type of Consult GI Reason for Consultation Pyrosis Date/Time of Note DATE: 10/09/18 TIME: 17:43 Hx of Present Illness This is a 57-year-old male no past medical history of diabetes, CAD, angioplasty with stent placement in 2014- currently on Plavix , pyrosis who was admitted DKA and SUSAN initially admitted to ICU on insulin drip patient overall has improved however patient continues to complain of progressive acid reflux. He notes he takes a "purple pill" at home which lately controls his acid reflux. He states he is never had an upper endoscopy and notes he also has not had a colonoscopy. Thus far his patient has been on Protonix and has been increased to twice daily as of today additionally he has PRN Mag-al plus. He denies overt signs of GI bleed including melena, hematochezia, hematemesis or change in bowel habits, constipation, or diarrhea. Review of Systems: [A 12 system, review was conducted and is negative except as noted in the HPI or here.] Past Medical History Medical History: coronary artery disease, diabetes, high cholesterol Home Meds Reported Medications Lidocaine 4% Topical (Lidocaine HCl) 4%-50 Ml Soln, 1 APPLIC MM BID, BOT 10/07/18 Latanoprost (Latanoprost) 2.5 Ml Drops, 1 DROP BOTH EYES QHS, #1 BOTTLE 10/07/18 Artificial Tears* (Akwa Oint*) 3.5 Gm Oint, 1 APPLIC BOTH EYES BID, #1 TUB 10/07/18 Brinzolamide-Brimonidine (Simbrinza 1%-0.2% Oph) 1%-0.2% - 8 Ml Drops.susp, 1 DROP BOTH EYES BID, EA 10/07/18 Tamsulosin Hcl* (Flomax*) 0.4 Mg Cap.er.24h, 0.4 MG PO BID, CAP 10/07/18 Montelukast Sodium* (Montelukast Sodium*) 10 Mg Tablet, 10 MG PO QHS, #30 TAB 10/05/18 Ezetimibe* (Zetia*) 10 Mg Tablet, 10 MG PO DAILY, TAB 10/05/18 Aspirin (Low Dose Aspirin) 81 Mg Tablet.dr, 81 MG PO DAILY, #30 TAB 10/05/18 Loratadine* (Loratadine*) 10 Mg Tablet, 10 MG PO DAILY, #30 TAB 10/05/18 Amitriptyline Hcl* (Amitriptyline Hcl*) 25 Mg Tablet, 25 MG PO QHS, #30 TAB 10/05/18 Clopidogrel Bisulfate (Clopidogrel) 75 Mg Tablet, 75 MG PO DAILY, #30 TAB 10/05/18 Empagliflozin (Jardiance) 25 Mg Tablet, 25 MG PO DAILY, TAB 10/05/18 Dulaglutide (Trulicity) 1.5 Mg/0.5 Ml Pen.injctr, 1.5 MG SQ EVERY Saturday10/05/18 Simvastatin* (Zocor*) 40 Mg Tablet, 40 MG PO QHS, #30 TAB 10/05/18 Lisinopril* (Lisinopril*) 10 Mg Tablet, 10 MG PO DAILY, #30 TAB 10/05/18 Fenofibrate Nanocrystallized* (Fenofibrate*) 145 Mg Tablet, 145 MG PO DAILY, TAB 10/05/18 Insulin Glargine,Hum.rec.anlog (Tata Farias) 300 Unit/1 Ml Insuln.pen, 60 UNIT SQ QAM, EA 10/05/18 Discontinued Reported Medications Tamsulosin Hcl* (Flomax*) 0.4 Mg Cap.er.24h, 0.4 MG PO DAILY, CAP 10/05/18 Dapagliflozin Propanediol (Farxiga) 10 Mg Tablet, 10 MG PO QAM, #30 TAB 08/03/16 Hydrochlorothiazide* (Hydrochlorothiazide*) 25 Mg Tab, 25 MG PO DAILY, #30 TAB 08/03/16 Fenofibrate Nanocrystallized* (Fenofibrate*) 145 Mg Tablet, 145 MG PO DAILY, TAB 08/03/16 Sitagliptin Phos/Metformin HCl (Janumet 50-1,000 mg Tablet) 1 Each Tablet, 1 TAB PO BID, TAB 08/03/16 Insulin Glargine,Hum.rec.anlog (Solomonjacksonlayo Duckworthyolettemohini) 300 Unit/1 Ml Insuln.pen, 55 UNIT SQ DAILY 08/03/16 Lisinopril* (Lisinopril*) 10 Mg Tablet, 10 MG PO DAILY, TAB 07/12/14 Glimepiride* (Glimepiride*) 4 Mg Tablet, 4 MG PO BID, TAB 07/12/14 Simvastatin (Simvastatin) 40 Mg Tablet, 40 MG PO HS, TAB 07/12/14 Discontinued Scripts Doxycycline Monohydrate* (Doxycycline Monohydrate*) 100 Mg Tablet, 100 MG PO BID for 10 Days, TAB Prov:MARIO MONTES MD 08/09/16 Silver Sulfadiazine (THERMAZENE 1% 25 GM) 1 Applic Cr, 1 APPLIC TOP DAILY for 28 Days Prov:MARIO MONTES MD 08/09/16 Clopidogrel Bisulfate (Clopidogrel) 75 Mg Tablet, 75 MG PO DAILY, #30 TAB Prov:ROB TAYLOR NP 09/07/14 Aspirin* (Aspirin* EC) 81 Mg Tablet.dr, 81 MG PO DAILY, #30 TAB Prov:ROB TAYLOR NP 09/07/14 Medications Current Medications Ondansetron HCl (Zofran Inj) 4 mg Q6H PRN IV NAUSEA AND/OR VOMITING; Start 10/05/18 at 07:00 Albuterol/ Ipratropium (Duoneb) 3 ml Q2H RESP THERAPY PRN NEB SHORTNESS OF BREATH; Start 10/05/18 at 07:00 Acetaminophen (Tylenol Liquid) 650 mg Q6H PRN PO PAIN LEVEL 1-3 OR FEVER Last administered on 10/05/18at 22:20; Admin Dose 650 MG; Start 10/05/18 at 07:00 Magnesium Hydroxide (Milk Of Mag) 30 ml DAILY PRN PO CONSTIPATION Last administered on 10/09/18at 09:24; Admin Dose 30 ML; Start 10/05/18 at 07:00 Enoxaparin Sodium (Lovenox) 40 mg DAILY SC Last administered on 10/09/18at 09:20; Admin Dose 40 MG; Start 10/05/18 at 09:00 Ceftriaxone Sodium 50 ml @ 100 mls/hr DAILY IVPB Last administered on 10/09/18 09:16; Admin Dose 100 MLS/HR; Start 10/05/18 at 09:00 Diagnostic Test (Pha) (Accu-Chek) 1 ea 02 XX Last administered on 10/09/18 02:21; Admin Dose 1 EA; Start 10/06/18 at 02:00 Insulin Aspart (Novolog Insulin Pen) NOVOLOG *MILD* ALGORITHM WITH MEALS BEDTIM E SC Last administered on 10/09/18 12:03; Admin Dose 4 UNIT; Start 10/05/18 at 17:35 Insulin Aspart (Novolog Insulin Pen) 8 unit WITH MEALS SC Last administered on 10/09/18 12:04; Admin Dose 8 UNIT; Start 10/06/18 at 17:35 Aspirin (Halfprin) 81 mg DAILY PO Last administered on 10/09/18 09:17; Admin Dose 81 MG; Start 10/06/18 at 16:00 Clopidogrel Bisulfate (plaVIX) 75 mg DAILY PO Last administered on 10/09/18 09:17; Admin Dose 75 MG; Start 10/06/18 at 16:00 EZETIMIBE (Zetia) 10 mg DAILY PO Last administered on 10/09/18 09:17; Admin Dose 10 MG; Start 10/06/18 at 16:00 Fenofibrate (Tricor) 145 mg DAILY PO Last administered on 10/09/18 09:17; Admin Dose 145 MG; Start 10/06/18 at 16:00 Loratadine (Claritin) 10 mg DAILY PO Last administered on 10/09/18 09:17; Admin Dose 10 MG; Start 10/06/18 at 16:00 Montelukast Sodium (Singulair) 10 mg QHS PO Last administered on 10/08/18 20: 48; Admin Dose 10 MG; Start 10/06/18 at 21:00 Tamsulosin HCl (Flomax) 0.4 mg DAILY@2100 PO Last administered on 10/08/18 20:48; Admin Dose 0.4 MG; Start 10/07/18 at 21:00 Miscellaneous Information 1 ea NOTE XX ; Start 10/06/18 at 16:00 Glucose (Glutose) 15 gm Q15M PRN PO DECREASED GLUCOSE; Start 10/06/18 at 16:00 Glucose (Glutose) 22.5 gm Q15M PRN PO DECREASED GLUCOSE; Start 10/06/18 at 16:00 Dextrose (D50w Syringe) 25 ml Q15M PRN IV DECREASED GLUCOSE; Start 10/06/18 at 16:00 Dextrose (D50w Syringe) 50 ml Q15M PRN IV DECREASED GLUCOSE; Start 10/06/18 at 16:00 Glucagon (Glucagen) 1 mg Q15M PRN IM DECREASED GLUCOSE; Start 10/06/18 at 16:00 Glucose (Glutose) 15 gm Q15M PRN BUCCAL DECREASED GLUCOSE; Start 10/06/18 at 16:00 Linagliptin (Tradjenta) 5 mg DAILY PO Last administered on 10/09/18 09:17; Admin Dose 5 MG; Start 10/07/18 at 09:00 Diagnostic Test (Pha) (Accu-Chek) 1 ea AC MEALS AND BEDTIME XX Last administered on 10/09/18 12:04; Admin Dose 1 EA; Start 10/06/18 at 17:35 Pantoprazole (Protonix Tab) 40 mg BID@06,18 PO Last administered on 10/09/18 05:37; Admin Dose 40 MG; Start 10/07/18 at 18:00 Docusate Sodium (Colace) 100 mg BID PRN PO CONSTIPATION Last administered on 10/09/18 04:57; Admin Dose 100 MG; Start 10/07/18 at 13:30 Polyethylene Glycol (Miralax) 17 gm DAILY PRN PO CONSTIPATION; Start 10/07/18 at 13:30 Lidocaine (Lmx 4% Plus) 1 applic BID TOP Last administered on 10/09/18 09:28; Admin Dose 1 APPLIC; Start 10/07/18 at 21:00 Eye Lubricant (Artificial Tears Oph) 1 drop BID BOTH EYES Last administered on 10/09/18 09:16; Admin Dose 1 DROP; Start 10/07/18 at 21:00 Latanoprost (Xalatan) 1 drop HS BOTH EYES Last administered on 10/08/18 20:51; Admin Dose 1 DROP; Start 10/07/18 at 21:30 Bethanechol Chloride (Urecholine) 10 mg TID PO Last administered on 10/09/18 13:55; Admin Dose 10 MG; Start 10/08/18 at 21:00 Insulin Glargine (Lantus) 45 units DAILY@2000 SC ; Start 10/09/18 at 20:00 Al Hydrox/Mg Hydrox/Simethicone (Mag-Al Plus) 30 ml Q4H PRN PO GASTROINTESTINAL UPSET; Start 10/09/18 at 17:00 Allergies: Coded Allergies: No Known Allergy (Unverified , 10/05/18) Past Surgical History Past Surgical Hx: angioplasty (Coronary) Social History Alcohol Use: none Smoking Status: Former smoker Drug Use: none Exam/Review of Systems Exam Vitals Vital Signs Date Temp Pulse Resp B/P (MAP) Pulse Ox O2 O2 Flow FiO2 Time Delivery Rate 10/09/18 98.1 78 16 97/67 (77) 95 Room Air 14:09 10/05/18 2.0 18:00 Intake and Output 10/08/18 10/08/18 10/09/18 1515:00 23:00 07:00 IntakeIntake Total 1010 ml 400 ml OutputOutput Total 900 ml 1000 ml BalanceBalance 110 ml -600 ml Constitutional: alert, oriented Psych: no complaints Head: normocephalic, atraumatic Eyes: nl conjunctiva ENMT: nl external ears & nose, nl lips & teeth Neck: supple, non-tender Respiratory: clear to auscultation Cardiovascular: regular rate and rhythm Gastrointestinal: soft, bowel sounds, tender Musculoskeletal: nl extremities to inspection Results Result Diagram: 10/07/18 0510 10/09/18 0602 Results 24hrs Laboratory Tests Test 10/08/18 20:46 10/09/18 02:04 10/09/18 06:02 10/09/18 08:13 Bedside Glucose 291 H 192 225 H Sodium Level 139 Potassium Level 4.0 Chloride Level 104 Carbon Dioxide Level 25 Anion Gap 10 Blood Urea Nitrogen 29 H Creatinine 1.37 H Est Glomerular 53 L Filtrat Rate mL/min Glucose Level 209 Calcium Level 9.5 Test 10/09/18 12:02 Bedside Glucose 295 H Medications Medication Current Medications Ondansetron HCl (Zofran Inj) 4 mg Q6H PRN IV NAUSEA AND/OR VOMITING; Start 10/05/18 at 07:00 Albuterol/ Ipratropium (Duoneb) 3 ml Q2H RESP THERAPY PRN NEB SHORTNESS OF BREATH; Start 10/05/18 at 07:00 Acetaminophen (Tylenol Liquid) 650 mg Q6H PRN PO PAIN LEVEL 1-3 OR FEVER Last administered on 10/05/18 22:20; Admin Dose 650 MG; Start 10/05/18 at 07:00 Magnesium Hydroxide (Milk Of Mag) 30 ml DAILY PRN PO CONSTIPATION Last administered on 10/09/18 09:24; Admin Dose 30 ML; Start 10/05/18 at 07:00 Enoxaparin Sodium (Lovenox) 40 mg DAILY SC Last administered on 10/09/18 09:2 0; Admin Dose 40 MG; Start 10/05/18 at 09:00 Ceftriaxone Sodium 50 ml @ 100 mls/hr DAILY IVPB Last administered on 10/09/18 09:16; Admin Dose 100 MLS/HR; Start 10/05/18 at 09:00 Diagnostic Test (Pha) (Accu-Chek) 1 ea 02 XX Last administered on 10/09/18 02:21; Admin Dose 1 EA; Start 10/06/18 at 02:00 Insulin Aspart (Novolog Insulin Pen) NOVOLOG *MILD* ALGORITHM WITH MEALS BEDTIME SC Last administered on 10/09/18 12:03; Admin Dose 4 UNIT; Start 10/05/18 at 17:35 Insulin Aspart (Novolog Insulin Pen) 8 unit WITH MEALS SC Last administered on 10/09/18 12:04; Admin Dose 8 UNIT; Start 10/06/18 at 17:35 Aspirin (Halfprin) 81 mg DAILY PO Last administered on 10/09/18 09:17; Admin Dose 81 MG; Start 10/06/18 at 16:00 Clopidogrel Bisulfate (plaVIX) 75 mg DAILY PO Last administered on 10/09/18 09:17; Admin Dose 75 MG; Start 10/06/18 at 16:00 EZETIMIBE (Zetia) 10 mg DAILY PO Last administered on 10/09/18 09:17; Admin Dose 10 MG; Start 10/06/18 at 16:00 Fenofibrate (Tricor) 145 mg DAILY PO Last administered on 10/09/18 09:17; Admin Dose 145 MG; Start 10/06/18 at 16:00 Loratadine (Claritin) 10 mg DAILY PO Last administered on 10/09/18 09:17; Admin Dose 10 MG; Start 10/06/18 at 16:00 Montelukast Sodium (Singulair) 10 mg QHS PO Last administered on 10/08/18 20:48; Admin Dose 10 MG; Start 10/06/18 at 21:00 Tamsulosin HCl (Flomax) 0.4 mg DAILY@2100 PO Last administered on 10/08/18 20:48; Admin Dose 0.4 MG; Start 10/07/18 at 21:00 Miscellaneous Information 1 ea NOTE XX ; Start 10/06/18 at 16:00 Glucose (Glutose) 15 gm Q15M PRN PO DECREASED GLUCOSE; Start 10/06/18 at 16:00 Glucose (Glutose) 22.5 gm Q15M PRN PO DECREASED GLUCOSE; Start 10/06/18 at 16:00 Dextrose (D50w Syringe) 25 ml Q15M PRN IV DECREASED GLUCOSE; Start 10/06/18 at 16:00 Dextrose (D50w Syringe) 50 ml Q15M PRN IV DECREASED GLUCOSE; Start 10/06/18 at 16:00 Glucagon (Glucagen) 1 mg Q15M PRN IM DECREASED GLUCOSE; Start 10/06/18 at 16:00 Glucose (Glutose) 15 gm Q15M PRN BUCCAL DECREASED GLUCOSE; Start 10/06/18 at 16:00 Linagliptin (Tradjenta) 5 mg DAILY PO Last administered on 10/09/18 09:17; Admin Dose 5 MG; Start 10/07/18 at 09:00 Diagnostic Test (Pha) (Accu-Chek) 1 ea AC MEALS AND BEDTIME XX Last administered on 10/09/18at 12:04; Admin Dose 1 EA; Start 10/06/18 at 17:35 Pantoprazole (Protonix Tab) 40 mg BID@06,18 PO Last administered on 10/09/18 05:37; Admin Dose 40 MG; Start 10/07/18 at 18:00 Docusate Sodium (Colace) 100 mg BID PRN PO CONSTIPATION Last administered on 10/09/18 04:57; Admin Dose 100 MG; Start 10/07/18 at 13:30 Polyethylene Glycol (Miralax) 17 gm DAILY PRN PO CONSTIPATION; Start 10/07/18 at 13:30 Lidocaine (Lmx 4% Plus) 1 applic BID TOP Last administered on 4/25/19at 09:28; Admin Dose 1 APPLIC; Start 10/07/18 at 21:00 Eye Lubricant (Artificial Tears Oph) 1 drop BID BOTH EYES Last administered on 10/09/18 09:16; Admin Dose 1 DROP; Start 10/07/18 at 21:00 Latanoprost (Xalatan) 1 drop HS BOTH EYES Last administered on 10/08/18at 20:51; Admin Dose 1 DROP; Start 10/07/18 at 21:30 Bethanechol Chloride (Urecholine) 10 mg TID PO Last administered on 10/09/18at 13:55; Admin Dose 10 MG; Start 10/08/18 at 21:00 Insulin Glargine (Lantus) 45 units DAILY@2000 SC ; Start 10/09/18 at 20:00 Al Hydrox/Mg Hydrox/Simethicone (Mag-Al Plus) 30 ml Q4H PRN PO GASTROINTESTINAL UPSET; Start 10/09/18 at 17:00 BENNIE SANCHEZ Oct 09, 2018 17:50
--- NOTE | 2018-10-09 19:13 | CONS ---
Consult Date/Type/Reason Admit Date/Time Oct 05, 2018 at 05:14 Initial Consult Date 10/07/18 Type of Consultation: Urology Reason for Consultation High postvoid residual Requesting Provider: GILLIAN SALAZAR MD Date/Time of Note DATE: 10/09/18 TIME: 19:08 Subjective The patient has been voiding and he states that he tries to void a second time but sometimes he cannot. Objective Vitals Vital Signs Date Temp Pulse Resp B/P (MAP) Pulse Ox O2 O2 Flow FiO2 Time Delivery Rate 10/09/18 98.1 78 16 97/67 (77) 95 Room Air 14:09 10/05/18 2.0 18:00 Intake and Output 10/08/18 10/08/18 10/09/18 1515:00 23:00 07:00 IntakeIntake Total 1010 ml 400 ml OutputOutput Total 900 ml 1000 ml BalanceBalance 110 ml -600 ml Exam He is voiding and the urine is clear. Last time he voided about 400 mL and the postvoid residual was 358ml Results/Medications Result Diagram: 10/07/18 0510 10/09/18 0602 Results 24 hrs Laboratory Tests Test 10/08/18 20:46 10/09/18 02:04 10/09/18 06:02 10/09/18 08:13 Bedside Glucose 291 H 192 225 H Sodium Level 139 Potassium Level 4.0 Chloride Level 104 Carbon Dioxide Level 25 Anion Gap 10 Blood Urea Nitrogen 29 H Creatinine 1.37 H Est Glomerular 53 L Filtrat Rate mL/min Glucose Level 209 Calcium Level 9.5 Test 10/09/18 12:02 10/09/18 17:20 10/09/18 17:40 Bedside Glucose 295 H 254 H Troponin I < 0.012 Home Meds Reported Medications Lidocaine 4% Topical (Lidocaine HCl) 4%-50 Ml Soln, 1 APPLIC MM BID, BOT 10/07/18 Latanoprost (Latanoprost) 2.5 Ml Drops, 1 DROP BOTH EYES QHS, #1 BOTTLE 10/07/18 Artificial Tears* (Akwa Oint*) 3.5 Gm Oint, 1 APPLIC BOTH EYES BID, #1 TUB 10/07/18 Brinzolamide-Brimonidine (Simbrinza 1%-0.2% Oph) 1%-0.2% - 8 Ml Drops.susp, 1 DROP BOTH EYES BID, EA 10/07/18 Tamsulosin Hcl* (Flomax*) 0.4 Mg Cap.er.24h, 0.4 MG PO BID, CAP 10/07/18 Montelukast Sodium* (Montelukast Sodium*) 10 Mg Tablet, 10 MG PO QHS, #30 TAB 10/05/18 Ezetimibe* (Zetia*) 10 Mg Tablet, 10 MG PO DAILY, TAB 10/05/18 Aspirin (Low Dose Aspirin) 81 Mg Tablet.dr, 81 MG PO DAILY, #30 TAB 10/05/18 Loratadine* (Loratadine*) 10 Mg Tablet, 10 MG PO DAILY, #30 TAB 10/05/18 Amitriptyline Hcl* (Amitriptyline Hcl*) 25 Mg Tablet, 25 MG PO QHS, #30 TAB 10/05/18 Clopidogrel Bisulfate (Clopidogrel) 75 Mg Tablet, 75 MG PO DAILY, #30 TAB 10/05/18 Empagliflozin (Jardiance) 25 Mg Tablet, 25 MG PO DAILY, TAB 10/05/18 Dulaglutide (Trulicity) 1.5 Mg/0.5 Ml Pen.injctr, 1.5 MG SQ EVERY Saturday10/05/18 Simvastatin* (Zocor*) 40 Mg Tablet, 40 MG PO QHS, #30 TAB 10/05/18 Lisinopril* (Lisinopril*) 10 Mg Tablet, 10 MG PO DAILY, #30 TAB 10/05/18 Fenofibrate Nanocrystallized* (Fenofibrate*) 145 Mg Tablet, 145 MG PO DAILY, TAB 10/05/18 Insulin Glargine,Hum.rec.anlog (Tata Farias) 300 Unit/1 Ml Insuln.pen, 60 UNIT SQ QAM, EA 10/05/18 Discontinued Reported Medications Tamsulosin Hcl* (Flomax*) 0.4 Mg Cap.er.24h, 0.4 MG PO DAILY, CAP 10/05/18 Dapagliflozin Propanediol (Farxiga) 10 Mg Tablet, 10 MG PO QAM, #30 TAB 08/03/16 Hydrochlorothiazide* (Hydrochlorothiazide*) 25 Mg Tab, 25 MG PO DAILY, #30 TAB 08/03/16 Fenofibrate Nanocrystallized* (Fenofibrate*) 145 Mg Tablet, 145 MG PO DAILY, TAB 08/03/16 Sitagliptin Phos/Metformin HCl (Janumet 50-1,000 mg Tablet) 1 Each Tablet, 1 TAB PO BID, TAB 08/03/16 Insulin Glargine,Hum.rec.anlog (Tata Farias) 300 Unit/1 Ml Insuln.pen, 55 UNIT SQ DAILY 08/03/16 Lisinopril* (Lisinopril*) 10 Mg Tablet, 10 MG PO DAILY, TAB 07/12/14 Glimepiride* (Glimepiride*) 4 Mg Tablet, 4 MG PO BID, TAB 07/12/14 Simvastatin (Simvastatin) 40 Mg Tablet, 40 MG PO HS, TAB 07/12/14 Discontinued Scripts Doxycycline Monohydrate* (Doxycycline Monohydrate*) 100 Mg Tablet, 100 MG PO BID for 10 Days, TAB Prov:MARIO MONTES MD 08/09/16 Silver Sulfadiazine (THERMAZENE 1% 25 GM) 1 Applic Cr, 1 APPLIC TOP DAILY for 28 Days Prov:MARIO MONTES MD 08/09/16 Clopidogrel Bisulfate (Clopidogrel) 75 Mg Tablet, 75 MG PO DAILY, #30 TAB Prov:ROB TAYLOR NP 09/07/14 Aspirin* (Aspirin* EC) 81 Mg Tablet.dr, 81 MG PO DAILY, #30 TAB Prov:ROB TAYLOR DIRECTOR OF VALUATION 09/07/14 Medications Current Medications Ondansetron HCl (Zofran Inj) 4 mg Q6H PRN IV NAUSEA AND/OR VOMITING; Start 10/05/18 at 07:00 Albuterol/ Ipratropium (Duoneb) 3 ml Q2H RESP THERAPY PRN NEB SHORTNESS OF BREATH; Start 10/05/18 at 07:00 Acetaminophen (Tylenol Liquid) 650 mg Q6H PRN PO PAIN LEVEL 1-3 OR FEVER Last administered on 10/05/18at 22:20; Admin Dose 650 MG; Start 10/05/18 at 07:00 Magnesium Hydroxide (Milk Of Mag) 30 ml DAILY PRN PO CONSTIPATION Last administered on 10/09/18at 09:24; Admin Dose 30 ML; Start 10/05/18 at 07:00 Enoxaparin Sodium (Lovenox) 40 mg DAILY SC Last administered on 10/09/18at 09:20; Admin Dose 40 MG; Start 10/05/18 at 09:00 Ceftriaxone Sodium 50 ml @ 100 mls/hr DAILY IVPB Last administered on 10/09/18 09:16; Admin Dose 100 MLS/HR; Start 10/05/18 at 09:00 Diagnostic Test (Pha) (Accu-Chek) 1 ea 02 XX Last administered on 10/09/18 02:21; Admin Dose 1 EA; Start 10/06/18 at 02:00 Insulin Aspart (Novolog Insulin Pen) NOVOLOG *MILD* ALGORITHM WITH MEALS BEDTIME SC Last administered on 10/09/18 17:44; Admin Dose 3 UNIT; Start 10/05/18 at 17:35 Insulin Aspart (Novolog Insulin Pen) 8 unit WITH MEALS SC Last administered on 10/09/18 17:43; Admin Dose 8 UNIT; Start 10/06/18 at 17:35 Aspirin (Halfprin) 81 mg DAILY PO Last administered on 10/09/18 09:17; Admin Dose 81 MG; Start 10/06/18 at 16:00 Clopidogrel Bisulfate (plaVIX) 75 mg DAILY PO Last administered on 10/09/18 09:17; Admin Dose 75 MG; Start 10/06/18 at 16:00 EZETIMIBE (Zetia) 10 mg DAILY PO Last administered on 10/09/18 09:17; Admin Dose 10 MG; Start 10/06/18 at 16:00 Fenofibrate (Tricor) 145 mg DAILY PO Last administered on 10/09/18 09:17; Admin Dose 145 MG; Start 10/06/18 at 16:00 Loratadine (Claritin) 10 mg DAILY PO Last administered on 10/09/18 09:17; Admin Dose 10 MG; Start 10/06/18 at 16:00 Montelukast Sodium (Singulair) 10 mg QHS PO Last administered on 10/08/18 20:48; Admin Dose 10 MG; Start 10/06/18 at 21:00 Tamsulosin HCl (Flomax) 0.4 mg DAILY@2100 PO Last administered on 10/08/18 20:48; Admin Dose 0.4 MG; Start 10/07/18 at 21:00 Miscellaneous Information 1 ea NOTE XX ; Start 10/06/18 at 16:00 Glucose (Glutose) 15 gm Q15M PRN PO DECREASED GLUCOSE; Start 10/06/18 at 16:00 Glucose (Glutose) 22.5 gm Q15M PRN PO DECREASED GLUCOSE; Start 10/06/18 at 16:00 Dextrose (D50w Syringe) 25 ml Q15M PRN IV DECREASED GLUCOSE; Start 10/06/18 at 16:00 Dextrose (D50w Syringe) 50 ml Q15M PRN IV DECREASED GLUCOSE; Start 10/06/18 at 16:00 Glucagon (Glucagen) 1 mg Q15M PRN IM DECREASED GLUCOSE; Start 10/06/18 at 16:00 Glucose (Glutose) 15 gm Q15M PRN BUCCAL DECREASED GLUCOSE; Start 10/06/18 at 16:00 Linagliptin (Tradjenta) 5 mg DAILY PO Last administered on 10/09/18 09:17; Admin Dose 5 MG; Start 10/07/18 at 09:00 Diagnostic Test (Pha) (Accu-Chek) 1 ea AC MEALS AND BEDTIME XX Last administered on 10/09/18 17:41; Admin Dose 1 EA; Start 10/06/18 at 17:35 Pantoprazole (Protonix Tab) 40 mg BID@06,18 PO Last administered on 10/09/18 17:41; Admin Dose 40 MG; Start 10/07/18 at 18:00 Docusate Sodium (Colace) 100 mg BID PRN PO CONSTIPATION Last administered on 04:57; Admin Dose 100 MG; Start 10/07/18 at 13:30 Polyethylene Glycol (Miralax) 17 gm DAILY PRN PO CONSTIPATION; Start 10/07/18 at 13:30 Lidocaine (Lmx 4% Plus) 1 applic BID TOP Last administered on 10/09/18 09:28; Admin Dose 1 APPLIC; Start 10/07/18 at 21:00 Eye Lubricant (Artificial Tears Oph) 1 drop BID BOTH EYES Last administered on 10/09/18 09:16; Admin Dose 1 DROP; Start 10/07/18 at 21:00 Latanoprost (Xalatan) 1 drop HS BOTH EYES Last administered on 10/08/18 20:51; Admin Dose 1 DROP; Start 10/07/18 at 21:30 Bethanechol Chloride (Urecholine) 10 mg TID PO Last administered on 4/25/19at 13:55; Admin Dose 10 MG; Start 10/08/18 at 21:00 Insulin Glargine (Lantus) 45 units DAILY@2000 SC ; Start 10/09/18 at 20:00 Al Hydrox/Mg Hydrox/Simethicone (Mag-Al Plus) 30 ml Q4H PRN PO GASTROINTESTINAL UPSET; Start 10/09/18 at 17:00 Sucralfate (Carafate Susp) 1 gm QID PO ; Start 10/09/18 at 21:00 Assessment/Plan Hospital Course (Demo Recall) 57-year-old male with history of diabetes mellitus type 2, coronary artery disease status post stent placement complained of generalize body weakness and lightheadedness and poor appetite for 4 days prior to admission. He reports having nocturia 2-3 times and bedwetting once a week. He occasionally does have urinary urgency or urgency incontinence. He denies any hematuria and there is no history of dysuria. He does have urinary frequency during the day. He does urinate every 1 hour. He was seen by Dr. Maldonado and it appears he had a cystoscopy and he is not sure of the findings. He was told that "he may need to have a catheter". He was on amitriptyline 25 mg at bedtime daily and that may be contributing to additional bladder relaxation and increasing the postvoid residual. The prostate is mildly enlarged on the rectal exam but not enough to cause his symptoms. Impression: High postvoid residual most likely related to neurogenic diabetic bladder. Also effect of medications such as the amitriptyline. Plan: He underwent pelvic ultrasound and that showed: The urinary bladder is markedly distended. The urinary bladder is normal in contour and wall thickness. No evidence of bladder stones. No evidence of a bladder mass. There is a prevoid volume of 890 cc and there is a post void volume of 284 cc. There is a postvoid residual of 31%. The prostate is normal in size measuring 3.1 x 3.9 x 3.3 cm. The prostatic volume is 21 cc. There is scattered calcification within the prostate. The PSA was 4.3. He does void but his postvoid residual is high. We tried to put him on a time voiding and double voiding and started him on Urecholine. He voided last about 400 mL and his postvoid residual was 358 mL and when asked to try to urinate a second time he said he did the best he can. I will increase his Urecholine from 10 mg to 25 mg 3 times a day SARAH PARMAR MD Oct 09, 2018 19:13
[2018-10-09 20:00] VITALS: BP 98/64; PULSE 78; RESP 18
[2018-10-09] MEDS: MONTELUKAST 10 MG TAB PO SCH (21:25)
[2018-10-09] MEDS: BETHANECHOL 25 MG TAB PO SCH (21:25)
[2018-10-09] MEDS: SUCRALFATE (100 MG/ML) 10ML CUP PO SCH (21:26)
[2018-10-09] MEDS: LATANOPROST 0.005% 2.5 ML OPH BOTH EYES SCH (21:28)
[2018-10-09] MEDS: TAMSULOSIN (SR) 0.4 MG CAP PO SCH (21:28)
[2018-10-09] MEDS: INSULIN GLARGINE [LANTus] (100 UNITS/ML) SYG SC SCH (21:31)
[2018-10-10] MEDS ORDERED: BISACODYL (EC) 5 MG TAB PO PRN (01:30)
[2018-10-10 02:00] VITALS: BP 91/52; PULSE 68; RESP 18
[2018-10-10] MEDS: ACCU-CHEK XX SCH ×5 (02:00→20:51)
[2018-10-10] MEDS: PANTOPRAZOLE (EC) 40 MG TAB PO SCH ×2 (05:54→17:19)
[2018-10-10 07:20] VITALS: BP 93/54; PULSE 70; RESP 18
[2018-10-10] MEDS: INSULIN ASPART [NOVOLOG] 3 ML PEN SC SCH ×7 (08:06→20:50)
[2018-10-10] MEDS: LORATADINE 10 MG TAB PO SCH (08:34)
[2018-10-10] MEDS: CEFTRIAXONE 1 GM/50 ML (PMX) 50 ML IVPB SCH (08:34)
[2018-10-10] MEDS: SUCRALFATE (100 MG/ML) 10ML CUP PO SCH ×4 (08:34→20:37)
[2018-10-10] MEDS: ARTIFICIAL TEARS 15 ML OPH BOTH EYES SCH ×2 (08:34→20:42)
[2018-10-10] MEDS: ENOXAPARIN 40 MG/0.4 ML SYG SC SCH (08:37)
[2018-10-10] MEDS: ASPIRIN (EC) 81 MG TAB PO SCH (08:37)
[2018-10-10] MEDS: EZETIMIBE 10 MG TAB PO SCH (08:38)
[2018-10-10] MEDS: FENOFIBRATE 145 MG TAB PO SCH (08:38)
[2018-10-10] MEDS: LINAGLIPTIN 5 MG TABLET PO SCH (08:38)
[2018-10-10] MEDS: CLOPIDOGREL 75 MG TAB PO SCH (08:38)
[2018-10-10] MEDS: BETHANECHOL 25 MG TAB PO SCH ×3 (08:38→20:37)
[2018-10-10] MEDS: POLYETHYLENE GLYCOL 17 GM PACKET PO SCH (12:08)
[2018-10-10] MEDS: LIDOCAINE 4% CR TOP SCH ×2 (12:09→20:51)
[2018-10-10 14:10] VITALS: BP 92/54; PULSE 75; RESP 18
--- NOTE | 2018-10-10 14:16 | PN ---
Date/Time of Note Date/Time of Note DATE: 10/10/18 TIME: 14:16 Assessment/Plan VTE Prophylaxis Risk score (from Ns)>0 risk: 2 SCD applied (from Ns): Yes Pharmacological prophylaxis: NA/contraindicated Pharm contraindication: low risk/ambulating Lines/Catheters IV Catheter Type (from Nrs): Saline Lock Urinary Cath still in place: No Assessment/Plan Hospital Course 1.DKA, BS is in 450. Chest xray is clear, UA is positive for increased WBC, negative for leucocyte esterase. 2. Hx of DM type II 3. Overweight 4. Hx of CAD with tstatus post PCI on 07/12/2014 to the proximal to mid left anterior descending. by dr Fisher 5. SIRS with WBC 26 6. SUSAN. Cr 2.63 7. Hx of Hypertension. 8. Dyslipidemia. 9. Hx of environmental allergies Assessment/Plan -spoke to dr Mcclain -reinforce double urination -c/e hypoglycemic control -dc tomorrow -FWW home -arrange PT and HH at home Result Diagram: 10/07/18 0510 10/09/18 0602 Results 24hrs Laboratory Tests Test 10/09/18 17:20 10/09/18 17:40 10/09/18 21:24 10/10/18 02:12 Troponin I < 0.012 Bedside Glucose 254 H 275 H 189 Test 10/10/18 07:49 10/10/18 12:02 Bedside Glucose 181 216 Subjective 24 Hr Interval Summary Constitutional: no complaints, improved Genitourinary: no complaints Exam/Review of Systems Exam Vitals Vital Signs Date Temp Pulse Resp B/P (MAP) Pulse Ox O2 O2 Flow FiO2 Time Delivery Rate 10/10/18 98.0 70 18 93/54 (67) 94 Room Air 07:20 Intake and Output 10/09/18 10/09/18 10/10/18 1515:00 23:00 07:00 IntakeIntake Total 830 ml 300 ml 300 ml OutputOutput Total 600 ml 500 ml BalanceBalance 830 ml -300 ml -200 ml Constitutional: alert, oriented Respiratory: clear to auscultation Cardiovascular: regular rate and rhythm Gastrointestinal: soft Genitourinary - Male: nl penis Extremities: normal pulses Results Results 24hrs Laboratory Tests Test 10/09/18 17:20 10/09/18 17:40 10/09/18 21:24 10/10/18 02:12 Troponin I < 0.012 Bedside Glucose 254 H 275 H 189 Test 10/10/18 07:49 10/10/18 12:02 Bedside Glucose 181 216 Medications Medication Current Medications Ondansetron HCl (Zofran Inj) 4 mg Q6H PRN IV NAUSEA AND/OR VOMITING; Start 10/05/18 at 07:00 Albuterol/ Ipratropium (Duoneb) 3 ml Q2H RESP THERAPY PRN NEB SHORTNESS OF BREATH; Start 10/05/18 at 07:00 Acetaminophen (Tylenol Liquid) 650 mg Q6H PRN PO PAIN LEVEL 1-3 OR FEVER Last administered on 10/05/18 22:20; Admin Dose 650 MG; Start 10/05/18 at 07:00 Magnesium Hydroxide (Milk Of Mag) 30 ml DAILY PRN PO CONSTIPATION Last administered on 10/09/18 09:24; Admin Dose 30 ML; Start 10/05/18 at 07:00 Enoxaparin Sodium (Lovenox) 40 mg DAILY SC Last administered on 10/10/18 08:37; Admin Dose 40 MG; Start 10/05/18 at 09:00 Ceftriaxone Sodium 50 ml @ 100 mls/hr DAILY IVPB Last administered on 10/10/18 08:34; Admin Dose 100 MLS/HR; Start 10/05/18 at 09:00 Diagnostic Test (Pha) (Accu-Chek) 1 ea 02 XX Last administered on 10/09/18 02:21; Admin Dose 1 EA; Start 10/06/18 at 02:00 Insulin Aspart (Novolog Insulin Pen) NOVOLOG *MILD* ALGORITHM WITH MEALS BEDTIME SC Last administered on 10/10/18 12:06; Admin Dose 2 UNIT; Start 10/05/18 at 17:35 Insulin Aspart (Novolog Insulin Pen) 8 unit WITH MEALS SC Last administered on 10/10/18 12:06; Admin Dose 8 UNIT; Start 10/06/18 at 17:35 Aspirin (Halfprin) 81 mg DAILY PO Last administered on 10/10/18 08:37; Admin Dose 81 MG; Start 10/06/18 at 16:00 Clopidogrel Bisulfate (plaVIX) 75 mg DAILY PO Last administered on 10/10/18 08:38; Admin Dose 75 MG; Start 10/06/18 at 16:00 EZETIMIBE (Zetia) 10 mg DAILY PO Last administered on 10/10/18 08:38; Admin Dose 10 MG; Start 10/06/18 at 16:00 Fenofibrate (Tricor) 145 mg DAILY PO Last administered on 10/10/18 08:38; Admin Dose 145 MG; Start 10/06/18 at 16:00 Loratadine (Claritin) 10 mg DAILY PO Last administered on 10/10/18 08:34; Admin Dose 10 MG; Start 10/06/18 at 16:00 Montelukast Sodium (Singulair) 10 mg QHS PO Last administered on 10/09/18 21:25; Admin Dose 10 MG; Start 10/06/18 at 21:00 Tamsulosin HCl (Flomax) 0.4 mg DAILY@2100 PO Last administered on 10/09/18 21:28; Admin Dose 0.4 MG; Start 10/07/18 at 21:00 Miscellaneous Information 1 ea NOTE XX ; Start 10/06/18 at 16:00 Glucose (Glutose) 15 gm Q15M PRN PO DECREASED GLUCOSE; Start 10/06/18 at 16:00 Glucose (Glutose) 22.5 gm Q15M PRN PO DECREASED GLUCOSE; Start 10/06/18 at 16:00 Dextrose (D50w Syringe) 25 ml Q15M PRN IV DECREASED GLUCOSE; Start 10/06/18 at 16:00 Dextrose (D50w Syringe) 50 ml Q15M PRN IV DECREASED GLUCOSE; Start 10/06/18 at 16:00 Glucagon (Glucagen) 1 mg Q15M PRN IM DECREASED GLUCOSE; Start 10/06/18 at 16:00 Glucose (Glutose) 15 gm Q15M PRN BUCCAL DECREASED GLUCOSE; Start 10/06/18 at 16:00 Linagliptin (Tradjenta) 5 mg DAILY PO Last administered on 10/10/18 08:38; Admin Dose 5 MG; Start 10/07/18 at 09:00 Diagnostic Test (Pha) (Accu-Chek) 1 ea AC MEALS AND BEDTIME XX Last administered on 10/10/18at 12:03; Admin Dose 1 EA; Start 10/06/18 at 17:35 Pantoprazole (Protonix Tab) 40 mg BID@06,18 PO Last administered on 10/10/18 05:54; Admin Dose 40 MG; Start 10/07/18 at 18:00 Docusate Sodium (Colace) 100 mg BID PRN PO CONSTIPATION Last administered on 10/09/18 04:57; Admin Dose 100 MG; Start 10/07/18 at 13:30 Lidocaine (Lmx 4% Plus) 1 applic BID TOP Last administered on 10/10/18 12:09; Admin Dose 1 APPLIC; Start 10/07/18 at 21:00 Eye Lubricant (Artificial Tears Oph) 1 drop BID BOTH EYES Last administered on 10/10/18 08:34; Admin Dose 1 DROP; Start 10/07/18 at 21:00 Latanoprost (Xalatan) 1 drop HS BOTH EYES Last administered on 10/09/18 21:28; Admin Dose 1 DROP; Start 10/07/18 at 21:30 Insulin Glargine (Lantus) 45 units DAILY@2000 SC Last administered on 10/09/18 21:31; Admin Dose 45 UNITS; Start 10/09/18 at 20:00 Al Hydrox/Mg Hydrox/Simethicone (Mag-Al Plus) 30 ml Q4H PRN PO GASTROINTESTINAL UPSET; Start 10/09/18 at 17:00 Sucralfate (Carafate Susp) 1 gm QID PO Last administered on 10/10/18 12:11; Admin Dose 1 GM; Start 10/09/18 at 21:00 Bethanechol Chloride (Urecholine) 25 mg TID PO Last administered on 10/10/18 12:11; Admin Dose 25 MG; Start 10/09/18 at 21:00 Polyethylene Glycol (Miralax) 17 gm DAILY PO Last administered on 10/10/18 12:08; Admin Dose 17 GM; Start 10/10/18 at 09:00 Bisacodyl (Dulcolax) 10 mg BID PRN PO CONSTIPATION Last administered on 10/10/18 02:08; Admin Dose 10 MG; Start 10/10/18 at 01:30 LUCIAN BAILEY Oct 10, 2018 14:16
--- NOTE | 2018-10-10 16:32 | DS ---
Date/Time of Note Date/Time of Note DATE: 10/10/18 TIME: 16:32 Discharge Summary Admission/Discharge Info Admit Date/Time Oct 05, 2018 at 05:14 Discharge Date/Time Discharge Diagnosis DKA Patient Condition: Stable Consults Dr Mcclain, urology, Dr Craig, Gastroenterology Hospital Course This 57 y.o male with history of environmental allergies, DM type II, overweight, CAD, history of stent complained on generalize body weakness and lightheadedness and poor appetite for 4 days. He has DM for 5 plus years and taking insulin Tujeo 60 q day and Glimepiride religiously. He denied any cough, dysuria, nausea, vomiting or pain. He does not know for sure his medications, denied hypertension. 1. DKA, BS is in 450. Chest xray is clear, UA is positive for increased WBC, negative for leucocyte esterase. 2. Hx of DM type II 3. Overweight 4. Hx of CAD with tstatus post PCI on 07/12/2014 to the proximal to mid left anterior descending. by dr Fisher 5. SIRS with WBC 26 6. SUSAN. Cr 2.63 7. Hx of Hypertension. 8. Dyslipidemia. 9. Hx of environmental allergies During hospitalization pt was in ICU with insulin drip. He was seen by music educator. Found that pt unable to urinate properly, his bladder is weak, additionally he has a BPH, Outpatient he was seen by dr Maldonado, urology MD, in house pr was consulted by dr Mcclain who recommended double urination. It was reinforced by nursing. Pt had frequent bladder scanning, I reinforced double urination. After lowering BS pt was transferred to medsur floor when he was under strict hypoglycemic control. PT was working with him and due to weakness recommended to c/w PT at home. Additionally pt was given FWW for use at home. carpentry instructor arranged PT and HH at home. Dr Craig evaluated pt for gastric issues, no procedures were done. Home Meds Active Scripts Ciprofloxacin Hcl* (Ciprofloxacin Hcl*) 500 Mg Tablet, 500 MG PO BID, #14 TAB Prov:LUCIAN BAILEY 10/10/18 Insulin Aspart* (Novolog Insulin Pen*) 100 Unit/Ml Soln, 8 UNIT SC WITH MEALS for 30 Days Prov:LUCIAN BAILEY 10/10/18 Bethanechol Chloride* (Urecholine*) 25 Mg Tab, 25 MG PO TID for 30 Days, TAB Prov:LUCIAN BAILEY 10/10/18 Lidocaine 4% Topical (Lidocaine HCl) 4%-50 Ml Soln, 1 APPLIC MM BID for 30 Days, BOT Prov:LUCIAN BAILEY 10/10/18 Reported Medications Latanoprost (Latanoprost) 2.5 Ml Drops, 1 DROP BOTH EYES QHS, #1 BOTTLE 10/07/18 Artificial Tears* (Akwa Oint*) 3.5 Gm Oint, 1 APPLIC BOTH EYES BID, #1 TUB 10/07/18 Brinzolamide-Brimonidine (Simbrinza 1%-0.2% Oph) 1%-0.2% - 8 Ml Drops.susp, 1 DROP BOTH EYES BID, EA 10/07/18 Tamsulosin Hcl* (Flomax*) 0.4 Mg Cap.er.24h, 0.4 MG PO BID, CAP 10/07/18 Montelukast Sodium* (Montelukast Sodium*) 10 Mg Tablet, 10 MG PO QHS, #30 TAB 10/05/18 Ezetimibe* (Zetia*) 10 Mg Tablet, 10 MG PO DAILY, TAB 10/05/18 Aspirin (Low Dose Aspirin) 81 Mg Tablet.dr, 81 MG PO DAILY, #30 TAB 10/05/18 Loratadine* (Loratadine*) 10 Mg Tablet, 10 MG PO DAILY, #30 TAB 10/05/18 Amitriptyline Hcl* (Amitriptyline Hcl*) 25 Mg Tablet, 25 MG PO QHS, #30 TAB 10/05/18 Clopidogrel Bisulfate (Clopidogrel) 75 Mg Tablet, 75 MG PO DAILY, #30 TAB 10/05/18 Empagliflozin (Jardiance) 25 Mg Tablet, 25 MG PO DAILY, TAB 10/05/18 Dulaglutide (Trulicity) 1.5 Mg/0.5 Ml Pen.injctr, 1.5 MG SQ EVERY Saturday10/05/18 Fenofibrate Nanocrystallized* (Fenofibrate*) 145 Mg Tablet, 145 MG PO DAILY, TAB 10/05/18 Insulin Glargine,Hum.rec.anlog (Tata Farias) 300 Unit/1 Ml Insuln.pen, 60 UNIT SQ QAM, EA 10/05/18 Discontinued Reported Medications Simvastatin* (Zocor*) 40 Mg Tablet, 40 MG PO QHS, #30 TAB 10/05/18 Lisinopril* (Lisinopril*) 10 Mg Tablet, 10 MG PO DAILY, #30 TAB 10/05/18 Tamsulosin Hcl* (Flomax*) 0.4 Mg Cap.er.24h, 0.4 MG PO DAILY, CAP 10/05/18 Dapagliflozin Propanediol (Farxiga) 10 Mg Tablet, 10 MG PO QAM, #30 TAB 08/03/16 Hydrochlorothiazide* (Hydrochlorothiazide*) 25 Mg Tab, 25 MG PO DAILY, #30 TAB 08/03/16 Fenofibrate Nanocrystallized* (Fenofibrate*) 145 Mg Tablet, 145 MG PO DAILY, TAB 08/03/16 Sitagliptin Phos/Metformin HCl (Janumet 50-1,000 mg Tablet) 1 Each Tablet, 1 TAB PO BID, TAB 08/03/16 Insulin Glargine,Hum.rec.anlog (Tata Farias) 300 Unit/1 Ml Insuln.pen, 55 UNIT SQ DAILY 08/03/16 Lisinopril* (Lisinopril*) 10 Mg Tablet, 10 MG PO DAILY, TAB 07/12/14 Glimepiride* (Glimepiride*) 4 Mg Tablet, 4 MG PO BID, TAB 07/12/14 Simvastatin (Simvastatin) 40 Mg Tablet, 40 MG PO HS, TAB 07/12/14 Discontinued Scripts Doxycycline Monohydrate* (Doxycycline Monohydrate*) 100 Mg Tablet, 100 MG PO BID for 10 Days, TAB Prov:MARIO MONTES MD 08/09/16 Silver Sulfadiazine (THERMAZENE 1% 25 GM) 1 Applic Cr, 1 APPLIC TOP DAILY for 28 Days Prov:MARIO MONTES MD 08/09/16 Clopidogrel Bisulfate (Clopidogrel) 75 Mg Tablet, 75 MG PO DAILY, #30 TAB Prov:ROB TAYLOR NP 09/07/14 Aspirin* (Aspirin* EC) 81 Mg Tablet.dr, 81 MG PO DAILY, #30 TAB Prov:ROB TAYLOR NP 09/07/14 Follow-up Plan PCP 1 week, urology 1 week Primary Care Provider Care Physician No Primary Time spent on discharge: < 30 minutes Pending Labs Laboratory Tests Test 10/09/18 17:20 10/09/18 17:40 10/09/18 21:24 10/10/18 02:12 Troponin I < 0.012 ng/ml (0.000-0. 120) Bedside 254 275 189 Glucose mg/dL (70-220) mg/dL (70-220) mg/dL (70-220) Test 10/10/18 07:49 10/10/18 12:02 Bedside 181 216 Glucose mg/dL (70-220) mg/dL (70-220) LUCIAN BAILEY Oct 10, 2018 16:32
--- NOTE | 2018-10-10 16:39 | PDOCDIS ---
Discharge Instructions DIAGNOSIS Discharge Diagnosis DKA CONDITION [id number] Patient Condition: [id number] Stable HOME CARE INSTRUCTIONS: [id number] Your diet recommendation is: [id number] carb controlled diet ACTIVITY: [id number] Activity Restrictions: [id number] Slowly Increase Activity Rest between Activity Avoid heavy lifting FOLLOW UP/APPOINTMENTS Follow-up Plan PCP 1 week, urology 1 week LUCIAN BAILEY Oct 10, 2018 16:39
[2018-10-10] MEDS ORDERED: CIPR500T4 PO (16:43)
[2018-10-10] MEDS ORDERED: LIDO40SO8 MM (16:43)
[2018-10-10] MEDS ORDERED: NOVO3I SC (16:43)
[2018-10-10] MEDS ORDERED: BETH25TA39 PO (16:43)
[2018-10-10] MEDS ORDERED: NA PHOSPHATE/BIPHOS 133 ML ENEMA PR ONE (17:00)
--- NOTE | 2018-10-10 19:30 | CONS ---
Consult Date/Type/Reason Admit Date/Time Oct 05, 2018 at 05:14 Initial Consult Date 10/07/18 Type of Consultation: Urology Reason for Consultation High postvoid residual urine Requesting Provider: GILLIAN SALAZAR MD Date/Time of Note DATE: 10/10/18 TIME: 19:25 Subjective Patient states that he is able to urinate but he is not emptying his bladder. Objective Vitals Vital Signs Date Temp Pulse Resp B/P (MAP) Pulse Ox O2 O2 Flow FiO2 Time Delivery Rate 10/10/18 97.9 75 18 92/54 (67) 95 Room Air 14:10 Intake and Output 10/09/18 10/09/18 10/10/18 1515:00 23:00 07:00 IntakeIntake Total 830 ml 300 ml 300 ml OutputOutput Total 600 ml 500 ml BalanceBalance 830 ml -300 ml -200 ml Exam He has been voiding, the urine is clear but the postvoid residual still high. He tries to urinate every 2-3 hours and tries to double void Results/Medications Result Diagram: 10/07/18 0510 10/09/18 0602 Results 24 hrs Laboratory Tests Test 10/09/18 21:24 10/10/18 02:12 10/10/18 07:49 10/10/18 12:02 Bedside Glucose 275 H 189 181 216 Home Meds Active Scripts Ciprofloxacin Hcl* (Ciprofloxacin Hcl*) 500 Mg Tablet, 500 MG PO BID, #14 TAB Prov:LUCIAN BAILEY 10/10/18 Insulin Aspart* (Novolog Insulin Pen*) 100 Unit/Ml Soln, 8 UNIT SC WITH MEALS for 30 Days Prov:LUCIAN BAILEY 10/10/18 Bethanechol Chloride* (Urecholine*) 25 Mg Tab, 25 MG PO TID for 30 Days, TAB Prov:LUCIAN BAILEY 10/10/18 Lidocaine 4% Topical (Lidocaine HCl) 4%-50 Ml Soln, 1 APPLIC MM BID for 30 Days, BOT Prov:LUCIAN BAILEY 10/10/18 Reported Medications Latanoprost (Latanoprost) 2.5 Ml Drops, 1 DROP BOTH EYES QHS, #1 BOTTLE 10/07/18 Artificial Tears* (Akwa Oint*) 3.5 Gm Oint, 1 APPLIC BOTH EYES BID, #1 TUB 10/07/18 Brinzolamide-Brimonidine (Simbrinza 1%-0.2% Oph) 1%-0.2% - 8 Ml Drops.susp, 1 DROP BOTH EYES BID, EA 10/07/18 Tamsulosin Hcl* (Flomax*) 0.4 Mg Cap.er.24h, 0.4 MG PO BID, CAP 10/07/18 Montelukast Sodium* (Montelukast Sodium*) 10 Mg Tablet, 10 MG PO QHS, #30 TAB 10/05/18 Ezetimibe* (Zetia*) 10 Mg Tablet, 10 MG PO DAILY, TAB 10/05/18 Aspirin (Low Dose Aspirin) 81 Mg Tablet.dr, 81 MG PO DAILY, #30 TAB 10/05/18 Loratadine* (Loratadine*) 10 Mg Tablet, 10 MG PO DAILY, #30 TAB 10/05/18 Amitriptyline Hcl* (Amitriptyline Hcl*) 25 Mg Tablet, 25 MG PO QHS, #30 TAB 10/05/18 Clopidogrel Bisulfate (Clopidogrel) 75 Mg Tablet, 75 MG PO DAILY, #30 TAB 10/05/18 Empagliflozin (Jardiance) 25 Mg Tablet, 25 MG PO DAILY, TAB 10/05/18 Dulaglutide (Trulicity) 1.5 Mg/0.5 Ml Pen.injctr, 1.5 MG SQ EVERY Saturday10/05/18 Simvastatin* (Zocor*) 40 Mg Tablet, 40 MG PO QHS, #30 TAB 10/05/18 Lisinopril* (Lisinopril*) 10 Mg Tablet, 10 MG PO DAILY, #30 TAB 10/05/18 Fenofibrate Nanocrystallized* (Fenofibrate*) 145 Mg Tablet, 145 MG PO DAILY, TAB 10/05/18 Insulin Glargine,Hum.rec.anlog (Tata Farias) 300 Unit/1 Ml Insuln.pen, 60 UNIT SQ QAM, EA 10/05/18 Discontinued Reported Medications Tamsulosin Hcl* (Flomax*) 0.4 Mg Cap.er.24h, 0.4 MG PO DAILY, CAP 10/05/18 Dapagliflozin Propanediol (Farxiga) 10 Mg Tablet, 10 MG PO QAM, #30 TAB 08/03/16 Hydrochlorothiazide* (Hydrochlorothiazide*) 25 Mg Tab, 25 MG PO DAILY, #30 TAB 08/03/16 Fenofibrate Nanocrystallized* (Fenofibrate*) 145 Mg Tablet, 145 MG PO DAILY, TAB 08/03/16 Sitagliptin Phos/Metformin HCl (Janumet 50-1,000 mg Tablet) 1 Each Tablet, 1 TAB PO BID, TAB 08/03/16 Insulin Glargine,Hum.rec.anlog (Toulayo Solostar) 300 Unit/1 Ml Insuln.pen, 55 UNIT SQ DAILY 08/03/16 Lisinopril* (Lisinopril*) 10 Mg Tablet, 10 MG PO DAILY, TAB 07/12/14 Glimepiride* (Glimepiride*) 4 Mg Tablet, 4 MG PO BID, TAB 07/12/14 Simvastatin (Simvastatin) 40 Mg Tablet, 40 MG PO HS, TAB 07/12/14 Discontinued Scripts Doxycycline Monohydrate* (Doxycycline Monohydrate*) 100 Mg Tablet, 100 MG PO BID for 10 Days, TAB Prov:MARIO MONTES MD 08/09/16 Silver Sulfadiazine (THERMAZENE 1% 25 GM) 1 Applic Cr, 1 APPLIC TOP DAILY for 28 Days Prov:MARIO MONTES MD 08/09/16 Clopidogrel Bisulfate (Clopidogrel) 75 Mg Tablet, 75 MG PO DAILY, #30 TAB Prov:ROB TAYLOR NP 09/07/14 Aspirin* (Aspirin* EC) 81 Mg Tablet.dr, 81 MG PO DAILY, #30 TAB Prov:ROB TAYLOR NP 09/07/14 Medications Current Medications Ondansetron HCl (Zofran Inj) 4 mg Q6H PRN IV NAUSEA AND/OR VOMITING; Start 10/05/18 at 07:00 Albuterol/ Ipratropium (Duoneb) 3 ml Q2H RESP THERAPY PRN NEB SHORTNESS OF BREATH; Start 10/05/18 at 07:00 Acetaminophen (Tylenol Liquid) 650 mg Q6H PRN PO PAIN LEVEL 1-3 OR FEVER Last administered on 10/05/18at 22:20; Admin Dose 650 MG; Start 10/05/18 at 07:00 Magnesium Hydroxide (Milk Of Mag) 30 ml DAILY PRN PO CONSTIPATION Last administered on 10/09/18 09:24; Admin Dose 30 ML; Start 10/05/18 at 07:00 Enoxaparin Sodium (Lovenox) 40 mg DAILY SC Last administered on 10/10/18 08:37; Admin Dose 40 MG; Start 10/05/18 at 09:00 Ceftriaxone Sodium 50 ml @ 100 mls/hr DAILY IVPB Last administered on 10/10/18 08:34; Admin Dose 100 MLS/HR; Start 10/05/18 at 09:00 Diagnostic Test (Pha) (Accu-Chek) 1 ea 02 XX Last administered on 10/09/18 02:21; Admin Dose 1 EA; Start 10/06/18 at 02:00 Insulin Aspart (Novolog Insulin Pen) NOVOLOG *MILD* ALGORITHM WITH MEALS BEDTIME SC Last administered on 10/10/18 17:23; Admin Dose 2 UNIT; Start 10/05/18 at 17:35 Insulin Aspart (Novolog Insulin Pen) 8 unit WITH MEALS SC Last administered on 10/10/18 17:20; Admin Dose 8 UNIT; Start 10/06/18 at 17:35 Aspirin (Halfprin) 81 mg DAILY PO Last administered on 10/10/18 08:37; Admin Dose 81 MG; Start 10/06/18 at 16:00 Clopidogrel Bisulfate (plaVIX) 75 mg DAILY PO Last administered on 10/10/18 08:38; Admin Dose 75 MG; Start 10/06/18 at 16:00 EZETIMIBE (Zetia) 10 mg DAILY PO Last administered on 10/10/18 08:38; Admin D ose 10 MG; Start 10/06/18 at 16:00 Fenofibrate (Tricor) 145 mg DAILY PO Last administered on 10/10/18 08:38; Admin Dose 145 MG; Start 10/06/18 at 16:00 Loratadine (Claritin) 10 mg DAILY PO Last administered on 10/10/18 08:34; Admin Dose 10 MG; Start 10/06/18 at 16:00 Montelukast Sodium (Singulair) 10 mg QHS PO Last administered on 10/09/18 21:25; Admin Dose 10 MG; Start 10/06/18 at 21:00 Tamsulosin HCl (Flomax) 0.4 mg DAILY@2100 PO Last administered on 10/09/18 21:28; Admin Dose 0.4 MG; Start 10/07/18 at 21:00 Miscellaneous Information 1 ea NOTE XX ; Start 10/06/18 at 16:00 Glucose (Glutose) 15 gm Q15M PRN PO DECREASED GLUCOSE; Start 10/06/18 at 16:00 Glucose (Glutose) 22.5 gm Q15M PRN PO DECREASED GLUCOSE; Start 10/06/18 at 16:00 Dextrose (D50w Syringe) 25 ml Q15M PRN IV DECREASED GLUCOSE; Start 10/06/18 at 16:00 Dextrose (D50w Syringe) 50 ml Q15M PRN IV DECREASED GLUCOSE; Start 10/06/18 at 16:00 Glucagon (Glucagen) 1 mg Q15M PRN IM DECREASED GLUCOSE; Start 10/06/18 at 16:00 Glucose (Glutose) 15 gm Q15M PRN BUCCAL DECREASED GLUCOSE; Start 10/06/18 at 16:00 Linagliptin (Tradjenta) 5 mg DAILY PO Last administered on 10/10/18 08:38; Admin Dose 5 MG; Start 10/07/18 at 09:00 Diagnostic Test (Pha) (Accu-Chek) 1 ea AC MEALS AND BEDTIME XX Last administered on 10/10/18 17:23; Admin Dose 1 EA; Start 10/06/18 at 17:35 Pantoprazole (Protonix Tab) 40 mg BID@06,18 PO Last administered on 10/10/18 17:19; Admin Dose 40 MG; Start 10/07/18 at 18:00 Docusate Sodium (Colace) 100 mg BID PRN PO CONSTIPATION Last administered on 10/09/18 04:57; Admin Dose 100 MG; Start 10/07/18 at 13:30 Lidocaine (Lmx 4% Plus) 1 applic BID TOP Last administered on 10/10/18 12:09; Admin Dose 1 APPLIC; Start 10/07/18 at 21:00 Eye Lubricant (Artificial Tears Oph) 1 drop BID BOTH EYES Last administered on 10/10/18 08:34; Admin Dose 1 DROP; Start 10/07/18 at 21:00 Latanoprost (Xalatan) 1 drop HS BOTH EYES Last administered on 10/09/18 21:28; Admin Dose 1 DROP; Start 10/07/18 at 21:30 Insulin Glargine (Lantus) 45 units DAILY@2000 SC Last administered on 10/09/18at 21:31; Admin Dose 45 UNITS; Start 10/09/18 at 20:00 Al Hydrox/Mg Hydrox/Simethicone (Mag-Al Plus) 30 ml Q4H PRN PO GASTROINTESTINAL UPSET; Start 10/09/18 at 17:00 Sucralfate (Carafate Susp) 1 gm QID PO Last administered on 10/10/18at 17:19; Admin Dose 1 GM; Start 10/09/18 at 21:00 Bethanechol Chloride (Urecholine) 25 mg TID PO Last administered on 10/10/18at 12:11; Admin Dose 25 MG; Start 10/09/18 at 21:00 Polyethylene Glycol (Miralax) 17 gm DAILY PO Last administered on 10/10/18at 12:08; Admin Dose 17 GM; Start 10/10/18 at 09:00 Bisacodyl (Dulcolax) 10 mg BID PRN PO CONSTIPATION Last administered on 10/10at 02:08; Admin Dose 10 MG; Start 10/10/18 at 01:30 Assessment/Plan Hospital Course (Demo Recall) 57-year-old male with history of diabetes mellitus type 2, coronary artery disease status post stent placement complained of generalize body weakness and lightheadedness and poor appetite for 4 days prior to admission. He reports having nocturia 2-3 times and bedwetting once a week. He occasionally does have urinary urgency or urgency incontinence. He denies any hematuria and there is no history of dysuria. He does have urinary frequency during the day. He does urinate every 1 hour. He was seen by Dr. Maldonado and it appears he had a cystoscopy and he is not sure of the findings. He was told that "he may need to have a catheter". He was on amitriptyline 25 mg at bedtime daily and that may be contributing to additional bladder relaxation and increasing the postvoid residual. The prostate is mildly enlarged on the rectal exam but not enough to cause his symptoms. Impression: High postvoid residual most likely related to neurogenic diabetic bladder. Also effect of medications such as the amitriptyline. Plan: He underwent pelvic ultrasound and that showed: The urinary bladder is markedly distended. The urinary bladder is normal in contour and wall thickness. No evidence of bladder stones. No evidence of a bladder mass. There is a prevoid volume of 890 cc and there is a post void volume of 284 cc. There is a postvoid residual of 31%. The prostate is normal in size measuring 3.1 x 3.9 x 3.3 cm. The prostatic volume is 21 cc. There is scattered calcification within the prostate. The PSA was 4.3. He does void but his postvoid residual is high. We tried to put him on a time voiding and double voiding and started him on Urecholine. He is on Urecholine 25 mg 3 times a day his postvoid residual was about 300 ml. Continue present treatment. If he is discharged he could follow-up with SARAH Aguillon MD Oct 10, 2018 19:30
[2018-10-10 20:00] VITALS: BP 94/63; PULSE 80; RESP 18
[2018-10-10] MEDS: LATANOPROST 0.005% 2.5 ML OPH BOTH EYES SCH (20:36)
[2018-10-10] MEDS: MONTELUKAST 10 MG TAB PO SCH (20:37)
[2018-10-10] MEDS: TAMSULOSIN (SR) 0.4 MG CAP PO SCH (20:42)
[2018-10-10] MEDS: INSULIN GLARGINE [LANTus] (100 UNITS/ML) SYG SC SCH (20:49)
[2018-10-11] MEDS: ACCU-CHEK XX SCH ×3 (01:22→11:39)
[2018-10-11 02:00] VITALS: BP 89/54; PULSE 62; RESP 18
[2018-10-11] MEDS: PANTOPRAZOLE (EC) 40 MG TAB PO SCH (06:04)
[2018-10-11 07:25] VITALS: BP 83/53; PULSE 60; RESP 18
[2018-10-11] MEDS: FENOFIBRATE 145 MG TAB PO SCH (08:13)
[2018-10-11] MEDS: SUCRALFATE (100 MG/ML) 10ML CUP PO SCH ×2 (08:13→13:53)
[2018-10-11] MEDS: POLYETHYLENE GLYCOL 17 GM PACKET PO SCH (08:13)
[2018-10-11] MEDS: LORATADINE 10 MG TAB PO SCH (08:13)
[2018-10-11] MEDS: CLOPIDOGREL 75 MG TAB PO SCH (08:13)
[2018-10-11] MEDS: BETHANECHOL 25 MG TAB PO SCH ×2 (08:13→13:53)
[2018-10-11] MEDS: LINAGLIPTIN 5 MG TABLET PO SCH (08:13)
[2018-10-11] MEDS: EZETIMIBE 10 MG TAB PO SCH (08:13)
[2018-10-11] MEDS: ASPIRIN (EC) 81 MG TAB PO SCH (08:13)
[2018-10-11] MEDS: ARTIFICIAL TEARS 15 ML OPH BOTH EYES SCH (08:14)
[2018-10-11] MEDS: LIDOCAINE 4% CR TOP SCH (08:14)
[2018-10-11] MEDS: CEFTRIAXONE 1 GM/50 ML (PMX) 50 ML IVPB SCH (08:14)
[2018-10-11] MEDS: ENOXAPARIN 40 MG/0.4 ML SYG SC SCH (08:16)
[2018-10-11] MEDS: INSULIN ASPART [NOVOLOG] 3 ML PEN SC SCH ×4 (08:16→11:50)
--- NOTE | 2018-10-11 11:47 | PN ---
Date/Time of Note Date/Time of Note DATE: 10/11/18 TIME: 11:43 Assessment/Plan VTE Prophylaxis Risk score (from Nsg)>0 risk: 2 SCD applied (from Nsg): Yes Pharmacological prophylaxis: other (scds) Lines/Catheters IV Catheter Type (from Nrs): Saline Lock Urinary Cath still in place: No Assessment/Plan Hospital Course Summary Assessment and Plan: Assessment: Pyrosis DKA- resolved DM HTN CAD Hx of angioplasty with stent placement 2014- on Plavix Plan: Carafate QID/Continue PPI BID x 4weeks- then decrease back to daily Recommend Out-pt EGD and colonoscopy for CRC screening (pt will require cardiac clearance as he is on Plavix) Continue reflux precautions/GERD diet GI will sign off at this time but will be available upon reconsult as needed Patient seen in collaboration with Dr. Carvajal Subjective: Course reviewed with nursing staff Patient interviewed and examined All labs, imaging and other results reviewed The patient states he feels much better- sx have resolved with current medication regimen for GERD. No c/o pyrosis or n/v or abd pain. Constitutional: alert, oriented Psych: no complaints Head: normocephalic, atraumatic Eyes: nl conjunctiva ENMT: nl external ears & nose, nl lips & teeth Neck: supple, non-tender Respiratory: clear to auscultation Cardiovascular: regular rate and rhythm Gastrointestinal: soft, bowel sounds, tender Musculoskeletal: nl extremities to inspection Result Diagram: 10/07/18 0510 10/09/18 0602 Results 24hrs Laboratory Tests Test 10/10/18 12:02 10/10/18 20:47 10/10/18 22:29 10/11/18 01:21 Bedside Glucose 216 310 H 263 H 199 Test 10/11/18 07:52 10/11/18 11:38 Bedside Glucose 180 245 H Exam/Review of Systems Exam Vitals Vital Signs Date Temp Pulse Resp B/P (MAP) Pulse Ox O2 O2 Flow FiO2 Time Delivery Rate 10/11/18 98.1 60 18 83/53 (63) 97 Room Air 07:25 Intake and Output 10/10/18 10/10/18 10/11/18 1515:00 23:00 07:00 IntakeIntake Total 700 ml 300 ml OutputOutput Total 100 ml 400 ml 925 ml BalanceBalance 600 ml -100 ml -925 ml Results Results 24hrs Laboratory Tests Test 10/10/18 12:02 10/10/18 20:47 10/10/18 22:29 10/11/18 01:21 Bedside Glucose 216 310 H 263 H 199 Test 10/11/18 07:52 10/11/18 11:38 Bedside Glucose 180 245 H Medications Medication Current Medications Ondansetron HCl (Zofran Inj) 4 mg Q6H PRN IV NAUSEA AND/OR VOMITING; Start 10/05/18 at 07:00 Albuterol/ Ipratropium (Duoneb) 3 ml Q2H RESP THERAPY PRN NEB SHORTNESS OF BREATH; Start 10/05/18 at 07:00 Acetaminophen (Tylenol Liquid) 650 mg Q6H PRN PO PAIN LEVEL 1-3 OR FEVER Last administered on 10/05/18 22:20; Admin Dose 650 MG; Start 10/05/18 at 07:00 Magnesium Hydroxide (Milk Of Mag) 30 ml DAILY PRN PO CONSTIPATION Last administered on 10/09/18 09:24; Admin Dose 30 ML; Start 10/05/18 at 07:00 Enoxaparin Sodium (Lovenox) 40 mg DAILY SC Last administered on 10/11/18 08:16; Admin Dose 40 MG; Start 10/05/18 at 09:00 Ceftriaxone Sodium 50 ml @ 100 mls/hr DAILY IVPB Last administered on 10/11/18 08:14; Admin Dose 100 MLS/HR; Start 10/05/18 at 09:00 Diagnostic Test (Pha) (Accu-Chek) 1 ea 02 XX Last administered on 10/09/18 02:21; Admin Dose 1 EA; Start 10/06/18 at 02:00 Insulin Aspart (Novolog Insulin Pen) NOVOLOG *MILD* ALGORITHM WITH MEALS BEDTIME SC Last administered on 10/11/18 08:17; Admin Dose 1 UNIT; Start 10/05/18 at 17:35 Insulin Aspart (Novolog Insulin Pen) 8 unit WITH MEALS SC Last administered on 10/11/18 08:16; Admin Dose 8 UNIT; Start 10/06/18 at 17:35 Aspirin (Halfprin) 81 mg DAILY PO Last administered on 10/11/18 08:13; Admin Dose 81 MG; Start 10/06/18 at 16:00 Clopidogrel Bisulfate (plaVIX) 75 mg DAILY PO Last administered on 10/11/18 08:13; Admin Dose 75 MG; Start 10/06/18 at 16:00 EZETIMIBE (Zetia) 10 mg DAILY PO Last administered on 10/11/18 08:13; Admin Dose 10 MG; Start 10/06/18 at 16:00 Fenofibrate (Tricor) 145 mg DAILY PO Last administered on 10/11/18 08:13; Admin Dose 145 MG; Start 10/06/18 at 16:00 Loratadine (Claritin) 10 mg DAILY PO Last administered on 10/11/18 08:13; Admin Dose 10 MG; Start 10/06/18 at 16:00 Montelukast Sodium (Singulair) 10 mg QHS PO Last administered on 10/10/18 20:37; Admin Dose 10 MG; Start 10/06/18 at 21:00 Tamsulosin HCl (Flomax) 0.4 mg DAILY@2100 PO Last administered on 10/10/18 20:42; Admin Dose 0.4 MG; Start 10/07/18 at 21:00 Miscellaneous Information 1 ea NOTE XX ; Start 10/06/18 at 16:00 Glucose (Glutose) 15 gm Q15M PRN PO DECREASED GLUCOSE; Start 10/06/18 at 16:00 Glucose (Glutose) 22.5 gm Q15M PRN PO DECREASED GLUCOSE; Start 10/06/18 at 16:00 Dextrose (D50w Syringe) 25 ml Q15M PRN IV DECREASED GLUCOSE; Start 10/06/18 at 16:00 Dextrose (D50w Syringe) 50 ml Q15M PRN IV DECREASED GLUCOSE; Start 10/06/18 at 16:00 Glucagon (Glucagen) 1 mg Q15M PRN IM DECREASED GLUCOSE; Start 10/06/18 at 16:00 Glucose (Glutose) 15 gm Q15M PRN BUCCAL DECREASED GLUCOSE; Start 10/06/18 at 16:00 Linagliptin (Tradjenta) 5 mg DAILY PO Last administered on 10/11/18 08:13; Admin Dose 5 MG; Start 10/07/18 at 09:00 Diagnostic Test (Pha) (Accu-Chek) 1 ea AC MEALS AND BEDTIME XX Last administered on 10/11/18 08:28; Admin Dose 1 EA; Start 10/06/18 at 17:35 Pantoprazole (Protonix Tab) 40 mg BID@06,18 PO Last administered on 10/11/18 06:04; Admin Dose 40 MG; Start 10/07/18 at 18:00 Docusate Sodium (Colace) 100 mg BID PRN PO CONSTIPATION Last administered on 10/09/18 04:57; Admin Dose 100 MG; Start 10/07/18 at 13:30 Lidocaine (Lmx 4% Plus) 1 applic BID TOP Last administered on 10/11/18 08:14; Admin Dose 1 APPLIC; Start 10/07/18 at 21:00 Eye Lubricant (Artificial Tears Oph) 1 drop BID BOTH EYES Last administered on 10/11/18 08:14; Admin Dose 1 DROP; Start 10/07/18 at 21:00 Latanoprost (Xalatan) 1 drop HS BOTH EYES Last administered on 10/10/18 20:36; Admin Dose 1 DROP; Start 10/07/18 at 21:30 Insulin Glargine (Lantus) 45 units DAILY@2000 SC Last administered on 10/10/18 20:49; Admin Dose 45 UNITS; Start 10/09/18 at 20:00 Al Hydrox/Mg Hydrox/Simethicone (Mag-Al Plus) 30 ml Q4H PRN PO GASTROINTESTINAL UPSET; Start 10/09/18 at 17:00 Sucralfate (Carafate Susp) 1 gm QID PO Last administered on 10/11/18 08:13; Admin Dose 1 GM; Start 10/09/18 at 21:00 Bethanechol Chloride (Urecholine) 25 mg TID PO Last administered on 10/11/18 08:13; Admin Dose 25 MG; Start 10/09/18 at 21:00 Polyethylene Glycol (Miralax) 17 gm DAILY PO Last administered on 10/11/18 08:13; Admin Dose 17 GM; Start 10/10/18 at 09:00 Bisacodyl (Dulcolax) 10 mg BID PRN PO CONSTIPATION Last administered on 10/10/18 02:08; Admin Dose 10 MG; Start 10/10/18 at 01:30 BENNIE SANCHEZ Oct 11, 2018 11:47
--- NOTE | 2018-10-11 13:46 | CONS ---
Consult Date/Type/Reason Admit Date/Time Oct 05, 2018 at 05:14 Initial Consult Date 10/07/18 Type of Consultation: Urology Reason for Consultation High postvoid residual urine Requesting Provider: GILLIAN SALAZAR MD Date/Time of Note DATE: 10/11/18 TIME: 13:43 Subjective Patient is comfortable and no change in his condition. Objective Vitals Vital Signs Date Temp Pulse Resp B/P (MAP) Pulse Ox O2 O2 Flow FiO2 Time Delivery Rate 10/11/18 98.1 60 18 83/53 (63) 97 Room Air 07:25 Intake and Output 10/10/18 10/10/18 10/11/18 1515:00 23:00 07:00 IntakeIntake Total 700 ml 300 ml OutputOutput Total 100 ml 400 ml 925 ml BalanceBalance 600 ml -100 ml -925 ml Exam He does void but keeps equal amount of urine inside his bladder as documented by the nursing staff: 2100 Void = 300ml / bladder scan residual =352 0000 Void = 325ml / bladder scan residual = 300 0300 Void = 300ml / bladder scan residual = 372 0600 Void = 300ml / bladder scan residual = 358 Results/Medications Result Diagram: 10/07/18 0510 10/09/18 0602 Results 24 hrs Laboratory Tests Test 10/10/18 20:47 10/10/18 22:29 10/11/18 01:21 10/11/18 07:52 Bedside Glucose 310 H 263 H 199 180 Test 10/11/18 11:38 Bedside Glucose 245 H Home Meds Active Scripts Ciprofloxacin Hcl* (Ciprofloxacin Hcl*) 500 Mg Tablet, 500 MG PO BID, #14 TAB Prov:LUCIAN BAILEY 10/10/18 Insulin Aspart* (Novolog Insulin Pen*) 100 Unit/Ml Soln, 8 UNIT SC WITH MEALS for 30 Days Prov:LUCIAN BAILEY 10/10/18 Bethanechol Chloride* (Urecholine*) 25 Mg Tab, 25 MG PO TID for 30 Days, TAB Prov:LUCIAN BAILEY 10/10/18 Lidocaine 4% Topical (Lidocaine HCl) 4%-50 Ml Soln, 1 APPLIC MM BID for 30 Days, BOT Prov:LUCIAN BAILEY 10/10/18 Reported Medications Latanoprost (Latanoprost) 2.5 Ml Drops, 1 DROP BOTH EYES QHS, #1 BOTTLE 10/07/18 Artificial Tears* (Akwa Oint*) 3.5 Gm Oint, 1 APPLIC BOTH EYES BID, #1 TUB 10/07/18 Brinzolamide-Brimonidine (Simbrinza 1%-0.2% Oph) 1%-0.2% - 8 Ml Drops.susp, 1 DROP BOTH EYES BID, EA 10/07/18 Tamsulosin Hcl* (Flomax*) 0.4 Mg Cap.er.24h, 0.4 MG PO BID, CAP 10/07/18 Montelukast Sodium* (Montelukast Sodium*) 10 Mg Tablet, 10 MG PO QHS, #30 TAB 10/05/18 Ezetimibe* (Zetia*) 10 Mg Tablet, 10 MG PO DAILY, TAB 10/05/18 Aspirin (Low Dose Aspirin) 81 Mg Tablet.dr, 81 MG PO DAILY, #30 TAB 10/05/18 Loratadine* (Loratadine*) 10 Mg Tablet, 10 MG PO DAILY, #30 TAB 10/05/18 Amitriptyline Hcl* (Amitriptyline Hcl*) 25 Mg Tablet, 25 MG PO QHS, #30 TAB 10/05/18 Clopidogrel Bisulfate (Clopidogrel) 75 Mg Tablet, 75 MG PO DAILY, #30 TAB 10/05/18 Empagliflozin (Jardiance) 25 Mg Tablet, 25 MG PO DAILY, TAB 10/05/18 Dulaglutide (Trulicity) 1.5 Mg/0.5 Ml Pen.injctr, 1.5 MG SQ EVERY Saturday10/05/18 Simvastatin* (Zocor*) 40 Mg Tablet, 40 MG PO QHS, #30 TAB 10/05/18 Lisinopril* (Lisinopril*) 10 Mg Tablet, 10 MG PO DAILY, #30 TAB 10/05/18 Fenofibrate Nanocrystallized* (Fenofibrate*) 145 Mg Tablet, 145 MG PO DAILY, TAB 10/05/18 Insulin Glargine,Hum.rec.anlog (Tata Farias) 300 Unit/1 Ml Insuln.pen, 60 UNIT SQ QAM, EA 10/05/18 Discontinued Reported Medications Tamsulosin Hcl* (Flomax*) 0.4 Mg Cap.er.24h, 0.4 MG PO DAILY, CAP 10/05/18 Dapagliflozin Propanediol (Farxiga) 10 Mg Tablet, 10 MG PO QAM, #30 TAB 08/03/16 Hydrochlorothiazide* (Hydrochlorothiazide*) 25 Mg Tab, 25 MG PO DAILY, #30 TAB 08/03/16 Fenofibrate Nanocrystallized* (Fenofibrate*) 145 Mg Tablet, 145 MG PO DAILY, TAB 08/03/16 Sitagliptin Phos/Metformin HCl (Janumet 50-1,000 mg Tablet) 1 Each Tablet, 1 TAB PO BID, TAB 08/03/16 Insulin Glargine,Hum.rec.anlog (Toulayo Solostar) 300 Unit/1 Ml Insuln.pen, 55 UNIT SQ DAILY 08/03/16 Lisinopril* (Lisinopril*) 10 Mg Tablet, 10 MG PO DAILY, TAB 07/12/14 Glimepiride* (Glimepiride*) 4 Mg Tablet, 4 MG PO BID, TAB 07/12/14 Simvastatin (Simvastatin) 40 Mg Tablet, 40 MG PO HS, TAB 07/12/14 Discontinued Scripts Doxycycline Monohydrate* (Doxycycline Monohydrate*) 100 Mg Tablet, 100 MG PO BID for 10 Days, TAB Prov:MARIO MONTES MD 08/09/16 Silver Sulfadiazine (THERMAZENE 1% 25 GM) 1 Applic Cr, 1 APPLIC TOP DAILY for 28 Days Prov:MARIO MONTES MD 08/09/16 Clopidogrel Bisulfate (Clopidogrel) 75 Mg Tablet, 75 MG PO DAILY, #30 TAB Prov:ROB TAYLOR NP 09/07/14 Aspirin* (Aspirin* EC) 81 Mg Tablet.dr, 81 MG PO DAILY, #30 TAB Prov:ROB TAYLOR INFORMATION AND DATA ARCHITECT ANALYST 09/07/14 Medications Current Medications Ondansetron HCl (Zofran Inj) 4 mg Q6H PRN IV NAUSEA AND/OR VOMITING; Start 10/05/18 at 07:00 Albuterol/ Ipratropium (Duoneb) 3 ml Q2H RESP THERAPY PRN NEB SHORTNESS OF BREATH; Start 10/05/18 at 07:00 Acetaminophen (Tylenol Liquid) 650 mg Q6H PRN PO PAIN LEVEL 1-3 OR FEVER Last administered on 10/05/18at 22:20; Admin Dose 650 MG; Start 10/05/18 at 07:00 Magnesium Hydroxide (Milk Of Mag) 30 ml DAILY PRN PO CONSTIPATION Last ad ministered on 10/09/18 09:24; Admin Dose 30 ML; Start 10/05/18 at 07:00 Enoxaparin Sodium (Lovenox) 40 mg DAILY SC Last administered on 10/11/18 08:16; Admin Dose 40 MG; Start 10/05/18 at 09:00 Ceftriaxone Sodium 50 ml @ 100 mls/hr DAILY IVPB Last administered on 10/11/18 08:14; Admin Dose 100 MLS/HR; Start 10/05/18 at 09:00 Diagnostic Test (Pha) (Accu-Chek) 1 ea 02 XX Last administered on 10/09/18 02:21; Admin Dose 1 EA; Start 10/06/18 at 02:00 Insulin Aspart (Novolog Insulin Pen) NOVOLOG *MILD* ALGORITHM WITH MEALS BEDTIME SC Last administered on 10/11/18 11:50; Admin Dose 3 UNIT; Start 10/05/18 at 17:35 Insulin Aspart (Novolog Insulin Pen) 8 unit WITH MEALS SC Last administered on 10/11/18 11:48; Admin Dose 8 UNIT; Start 10/06/18 at 17:35 Aspirin (Halfprin) 81 mg DAILY PO Last administered on 10/11/18 08:13; Admin Dose 81 MG; Start 10/06/18 at 16:00 Clopidogrel Bisulfate (plaVIX) 75 mg DAILY PO Last administered on 10/11/18 08:13; Admin Dose 75 MG; Start 10/06/18 at 16:00 EZETIMIBE (Zetia) 10 mg DAILY PO Last administered on 10/11/18 08:13; Admin Dose 10 MG; Start 10/06/18 at 16:00 Fenofibrate (Tricor) 145 mg DAILY PO Last administered on 10/11/18 08:13; Ad min Dose 145 MG; Start 10/06/18 at 16:00 Loratadine (Claritin) 10 mg DAILY PO Last administered on 10/11/18 08:13; Admin Dose 10 MG; Start 10/06/18 at 16:00 Montelukast Sodium (Singulair) 10 mg QHS PO Last administered on 4/26/19at 20:37; Admin Dose 10 MG; Start 10/06/18 at 21:00 Tamsulosin HCl (Flomax) 0.4 mg DAILY@2100 PO Last administered on 10/10/18 20:42; Admin Dose 0.4 MG; Start 10/07/18 at 21:00 Miscellaneous Information 1 ea NOTE XX ; Start 10/06/18 at 16:00 Glucose (Glutose) 15 gm Q15M PRN PO DECREASED GLUCOSE; Start 10/06/18 at 16:00 Glucose (Glutose) 22.5 gm Q15M PRN PO DECREASED GLUCOSE; Start 10/06/18 at 16:00 Dextrose (D50w Syringe) 25 ml Q15M PRN IV DECREASED GLUCOSE; Start 10/06/18 at 16:00 Dextrose (D50w Syringe) 50 ml Q15M PRN IV DECREASED GLUCOSE; Start 10/06/18 at 16:00 Glucagon (Glucagen) 1 mg Q15M PRN IM DECREASED GLUCOSE; Start 10/06/18 at 16:00 Glucose (Glutose) 15 gm Q15M PRN BUCCAL DECREASED GLUCOSE; Start 10/06/18 at 16:00 Linagliptin (Tradjenta) 5 mg DAILY PO Last administered on 10/11/18 08:13; Admin Dose 5 MG; Start 10/07/18 at 09:00 Diagnostic Test (Pha) (Accu-Chek) 1 ea AC MEALS AND BEDTIME XX Last administered on 10/11/18 11:39; Admin Dose 1 EA; Start 10/06/18 at 17:35 Pantoprazole (Protonix Tab) 40 mg BID@06,18 PO Last administered on 10/11/18 06:04; Admin Dose 40 MG; Start 10/07/18 at 18:00 Docusate Sodium (Colace) 100 mg BID PRN PO CONSTIPATION Last administered on 10/09/18 04:57; Admin Dose 100 MG; Start 10/07/18 at 13:30 Lidocaine (Lmx 4% Plus) 1 applic BID TOP Last administered on 10/11/18 08:14; Admin Dose 1 APPLIC; Start 10/07/18 at 21:00 Eye Lubricant (Artificial Tears Oph) 1 drop BID BOTH EYES Last administered on 10/11/18 08:14; Admin Dose 1 DROP; Start 10/07/18 at 21:00 Latanoprost (Xalatan) 1 drop HS BOTH EYES Last administered on 10/10/18 20:36; Admin Dose 1 DROP; Start 10/07/18 at 21:30 Insulin Glargine (Lantus) 45 units DAILY@2000 SC Last administered on 10/10/18 20:49; Admin Dose 45 UNITS; Start 10/09/18 at 20:00 Al Hydrox/Mg Hydrox/Simethicone (Mag-Al Plus) 30 ml Q4H PRN PO GASTROINTESTINAL UPSET; Start 10/09/18 at 17:00 Sucralfate (Carafate Susp) 1 gm QID PO Last administered on 10/11/18 08:13; Admin Dose 1 GM; Start 10/09/18 at 21:00 Bethanechol Chloride (Urecholine) 25 mg TID PO Last administered on 10/11/18 08:13; Admin Dose 25 MG; Start 10/09/18 at 21:00 Polyethylene Glycol (Miralax) 17 gm DAILY PO Last administered on 10/11/18 08:13; Admin Dose 17 GM; Start 10/10/18 at 09:00 Bisacodyl (Dulcolax) 10 mg BID PRN PO CONSTIPATION Last administered on 10/10/18 02:08; Admin Dose 10 MG; Start 10/10/18 at 01:30 Assessment/Plan Hospital Course (Demo Recall) 57-year-old male with history of diabetes mellitus type 2, coronary artery dise ase status post stent placement complained of generalize body weakness and lightheadedness and poor appetite for 4 days prior to admission. He reports having nocturia 2-3 times and bedwetting once a week. He occasionally does have urinary urgency or urgency incontinence. He denies any hematuria and there is no history of dysuria. He does have urinary frequency during the day. He does urinate every 1 hour. He was seen by Dr. Maldonado and it appears he had a cystoscopy and he is not sure of the findings. He was told that "he may need to have a catheter". He was on amitriptyline 25 mg at bedtime daily and that may be contributing to additional bladder relaxation and increasing the postvoid residual. The prostate is mildly enlarged on the rectal exam but not enough to cause his symptoms. Impression: High postvoid residual most likely related to neurogenic diabetic bladder. Also effect of medications such as the amitriptyline. Plan: He underwent pelvic ultrasound and that showed: The urinary bladder is markedly distended. The urinary bladder is normal in contour and wall thickness. No evidence of bladder stones. No evidence of a bladder mass. There is a prevoid volume of 890 cc and there is a post void volume of 284 cc. There is a postvoid residual of 31%. The prostate is normal in size measuring 3.1 x 3.9 x 3.3 cm. The prostatic volume is 21 cc. There is scattered calcification within the prostate. The PSA was 4.3. He does void but his postvoid residual is high. He does void but keeps equal amount of urine inside his bladder as documented by the nursing staff: 2100 Void = 300ml / bladder scan residual =352 0000 Void = 325ml / bladder scan residual = 300 0300 Void = 300ml / bladder scan residual = 372 0600 Void = 300ml / bladder scan residual = 358 Continue to encourage him to urinate every 2-3 hours and then double void. Continue the Urecholine. SARAH PARMAR MD Oct 11, 2018 13:46
[2018-10-11 14:07] VITALS: BP 94/54; PULSE 63; RESP 16
== END 2018-10-11 15:25 | disposition home or self-care (01) | DRG 638 ==
LOC: E/R 23:10 → ICU 10-05 05:14 → EDBEDREQSVC 10-05 05:38 → PP2 10-06 01:15
PROVIDERS: ADMIT Internal Medicine; ATTEND Internal Medicine
DX: E11.10 Type 2 diabetes mellitus with ketoacidosis without coma (principal); N17.9 Acute kidney failure, unspecified; R65.10 Systemic inflammatory response syndrome (SIRS) of non-infectious origin without acute organ dysfunction; N31.8 Other neuromuscular dysfunction of bladder; E78.5 Hyperlipidemia, unspecified; I25.10 Atherosclerotic heart disease of native coronary artery without angina pectoris; I12.9 Hypertensive chronic kidney disease with stage 1 through stage 4 chronic kidney disease, or unspecified chronic kidney disease; E11.22 Type 2 diabetes mellitus with diabetic chronic kidney disease; E11.65 Type 2 diabetes mellitus with hyperglycemia; N18.9 Chronic kidney disease, unspecified; K21.9 Gastro-esophageal reflux disease without esophagitis; E66.3 Overweight; Z68.30 Body mass index [BMI] 30.0-30.9, adult; Z95.5 Presence of coronary angioplasty implant and graft; Z91.11 Patient's noncompliance with dietary regimen; Z91.14 Patient's other noncompliance with medication regimen; Z79.4 Long term (current) use of insulin; Z79.82 Long term (current) use of aspirin; Z87.891 Personal history of nicotine dependence
CPT/HCPCS: 36415; 71045; 74018; 76856; 80048; 80053; 80061; 81001; 82803; 82962; 83036; 83690; 83735; 84100; 84153; 84154; 84484; 85025; 87081; 87086; 93005; 93931; 96374; 97110; 97116; 97161; A4310; C9113; J0696; J1650; J1815; J2765; J3480; J7030; J7120